=== PATIENT | female | born 1940 | race Caucasian/White ===

== ENCOUNTER 2024-03-09 10:21 | Outpatient (REF) | payer MEDICARE, BC, SELFPAY ==
--- NOTE | ~2024-03-09 | XR_ITS ---
EXAMINATION: XR LUMBAR SPINE 4 OR MORE VIEWS HISTORY: M48.061 - Spinal stenosis, lumbar region without neurogenic claudication COMPARISON: There are no prior studies for comparison. FINDINGS: AP, and neutral, flexion, and extension lateral views of the lumbar spine are submitted. Osseous mineralization is normal. Five nonrib-bearing lumbar vertebral bodies are identified, maintaining normal height without evidence of fracture. There is minimal anterolisthesis of L4 on L5 which does not change with flexion or extension. There is diffuse mild degenerative disc disease with disc space narrowing and osteophyte formation. This is most prominent at L5-S1. There is osteoarthritis of the facet joints. The visualized paraspinal soft tissues are unremarkable. XR/XR lumbar spine 4V min IMPRESSION: Degenerative changes of the lumbar spine as described. Minimal anterolisthesis of L4 on L5 which does not change with flexion or extension. Electronically signed by: Andi Brown MD 03/12/2024 08:52 AM [facility]
== END 2024-03-09 10:22 | disposition home or self-care (01) ==
LOC: HO.HOSX 10:21
PROVIDERS: PCP Internal Medicine; Visit Provider Physician Assistant
DX: M48.062 Spinal stenosis, lumbar region with neurogenic claudication (principal)
CPT/HCPCS: 72110; 99202

== ENCOUNTER → 2024-03-09 11:28 | Outpatient (BNV) | payer MEDICARE, BC, SELFPAY | PROVIDERS: PCP Internal Medicine; Visit Provider Radiology Diagnostic Radiology | DX: M51.369 Other intervertebral disc degeneration, lumbar region without mention of lumbar back pain or lower extremity pain (principal) | CPT/HCPCS: 72110 ==

== ENCOUNTER → 2024-04-12 10:45 | Outpatient (BNV) | payer MEDICARE, BC, SELFPAY | PROVIDERS: PCP Internal Medicine; Visit Provider Internal Medicine Cardiovascular Disease | DX: I45.10 Unspecified right bundle-branch block (principal) | CPT/HCPCS: 93010 ==

== ENCOUNTER 2024-04-26 05:58 | Day surgery (SDC) | payer MEDICARE, BC, SELFPAY ==
--- NOTE | 2024-04-12 | ECG_ITS ---
Test Reason : preop Blood Pressure : */* mmHG Vent. Rate : 93 BPM Atrial Rate : 93 BPM P-R Int : 160 ms QRS Dur : 118 ms QT Int : 410 ms P-R-T Axes : 74 47 55 degrees QTcB Int : 509 ms Normal sinus rhythm Low voltage QRS Right bundle branch block Abnormal ECG No previous ECGs available Referred By: Hui Blanco Electronically Signed By: Joel Youssef
[2024-04-12 10:03] VITALS: BP 167/77; PULSE 86; RESP 20; O2SAT 98; BMI 31.9
[2024-04-26] VITALS (8 sets, daily range): BP systolic 101–125; BP diastolic 46–75; PULSE 85–112; RESP 12–16; TEMP 36.1–36.7; O2SAT 94–100
--- NOTE | ~2024-04-26 | FL_ITS ---
EXAMINATION: FL GUIDANCE ONLY HISTORY: l3-4 decompression COMPARISON: Correlation is made with plain films of the lumbar spine dated 03/09/2024. TECHNIQUE: Fluoroscopy time: 2.3 minutes. Cumulative Dose: 1.40 978 mGy. DAP: 0.4936 mGym2 Images: 1. FINDINGS: A single fluoroscopic spot film of the lumbar spine in the lateral projection demonstrates a probe directed toward the L3-4 intervertebral disc space from a posterior approach. FL/FL guidance in OR IMPRESSION: Fluoroscopy during procedure. Please see procedure report for additional information. Electronically signed by: Andi Brown MD 04/26/2024 08:40 AM EDT
[2024-04-26] MEDS: Gabapentin 300 MG CAPSULE PO (06:30)
[2024-04-26] MEDS: Lactated Ringers 1,000 ML 100 ML IVCONT (06:30)
[2024-04-26] MEDS: methocarbamoL 750 MG TABLET PO (06:30)
--- NOTE | 2024-04-26 07:02 | P.HPSUR_ITS ---
Pre-Procedural Eval Section A - 24 Hr Update-Section A only Date of Service: 04/26/24 The patient is an INPATIENT: No Changes since office visit: No Cold of Flu in the past 2 weeks, No New Medical Problems, No Changes in Medication and No Patient answered all questions The patient has been examined within 24 hours of the surgical procedure. The History & Physical has been completed within 30 days and I have reviewed it.: No Section B - Complete if H&P > 30 days Chief Complaint: Spinal stenosis, lumbar region without neurogenic Allergies: Allergies Allergy/AdvReac Type Severity Reaction Status Date / Time No Known Allergies Allergy Verified 04/26/24 06:27 Review of Systems Sugical H&P ROS: Negative: Constitution, Cardiovascular, Respiratory, Neurological, Psychiatric, Hem-Onc, Allergic/Immunologic, Gastrointestinal, Genitourinary, Musculoskeletal, Integumentary, Endocrine and Eyes/Ears/Nose/Thro at Exam Surgical H&P Exam: Normal: HEENT, Normal: Heart, Normal: Lungs, Normal: Extremities, Normal: Abdomen, Normal: Skin and Normal: Neurological (Awake alert oriented) Plan Diagnosis/Plan: Unchanged L3-4 decompression Time Spent With Patient Time: Total time managing care of this patient today __ 5 __ minutes.
--- NOTE | 2024-04-26 07:03 | P.DS_ITS ---
DS: Providers Provider Date of Service: 04/26/24 Date of discharge: 04/26/24 Primary care physician: Carlin Owens MD Admitting clinician: Cesar Daniels DS: Diagnosis Discharge Diagnosis (1) Lumbar stenosis: Status: Acute DS: Summary Time Attestation Discharge Coordination Time (in mins): 3 Quality: Safe Use of Opioids Does Pt have an Active Cancer Diagnosis on the Problem List?: No Quality: Stroke Does the patient have a stroke diagnosis?: No Physical Exam Vital Signs: Vital Signs: Last Vital Signs Temp 98.1 F 04/26/24 06:32 Pulse 85 04/26/24 06:32 Resp 16 04/26/24 06:32 BP 101/61 04/26/24 06:32 Pulse Ox 95 04/26/24 06:32 O2 Del Method Room Air 04/26/24 06:32 BMI result Body Mass Index 31.9 Discharge Plan Discharge Patient Disposition: Home, Self-Care Referrals: Carlin Owens MD [Primary Care Provider] - 1 Week Discharge Medications: New oxycodone 5 mg tablet 5 mg PO Q4H PRN (Reason: pain) Qty: 20 0RF Rx Instructions: Partial Fill upon patient request. Continued celecoxib 200 mg capsule 200 mg PO QAM citalopram 10 mg tablet 10 mg PO QAM tramadol 50 mg tablet 50 - 100 mg PO BID PRN (Reason: Pain) zolpidem 5 mg tablet 5 mg PO BEDTIME PRN (Reason: Insomnia) ramipril 5 mg capsule 5 mg PO QAM loratadine 10 mg tablet 10 mg PO DAILY PRN (Reason: Allergy Symptoms) rosuvastatin 20 mg tablet 20 mg PO QAM cholecalciferol (vitamin D3) [Vitamin D3] 25 mcg (1,000 unit) Capsule 25 mcg PO QAM acetaminophen 500 mg Tablet 1,000 mg PO QID PRN (Reason: Pain) Discharge Orders: Discharge Order (Routine); Ordered 04/26/24 Ordered By: Peewee Unger Diet: Advance to usual diet Activity on Discharge: As tolerated Activity Restrictions/Additional Instructions: After your spinal surgery we ask you to observe the following restrictions/guidelines: Activity: It is normal to feel some discomfort as you increase your activity, but that will improve with time. We ask you avoid heavy lifting or acitivities that cause pain. As a general rule, 8lbs is a safe limit for lifting right after surgery. Walk as much as you feel comfortable but not to exhaustion. You will feel extra tired the first few days after surgery. Stay well hydrated. It is OK to walk up and down stairs You may return to driving when you are off narcotics (such as vicodin, oxycodone, dilaudid, etc), and you are back to normal functional capacity. If you have any concerns please check with office before driving. Return to work is specific to each patient and each surgery, so please speak with your doctor/PA at first follow up. Please bring paperwork such as FMLA at that time if you need it filled out. Medications: For optimum pain control, it is best to start with a combination of 500 mg of Tylenol every 4 hours with 600 mg of Motrin every 8 hours, and use narcotics as needed in between for breakthrough pain. We will give you a short supply of narcotics after surgery (usually one weeks worth). If you need more please call the office but do not use more than prescribed. You will need to give our office 48 hours notice if you need narcotics refilled and we do not fill narcotics on weekends or evenings. If you are on a narcotic, it is a good idea to take a stool softener such as colace or senna to avoid constipation If you take blood thinner such as aspirin, Plavix, Coumadin, Effient, Eliquis etc for conditions such as Afib, DVT, Pulmonary embolus, coronary disease, stents etc please speak with your surgeon about specific details as to when you can resume these medications. You can resume NSAIDs on post op day 1 (eg: Motrin, Naproxen, etc). Follow up: Please call the office, , after surgery to arrange a 3 week follow up for wound check. Wound Care: You may remove your dressing on the first day after surgery. ?You may ?leave open to air. Please do not remove the steri strips underneath. they will fall off on their own in one week. IT IS NORMAL FOR THE WOUND TO OOZE OR BE BLOODY FOR A FEW DAYS AFTER SURGERY. ?IF THIS HAPPENS JUST PLACE NEW DRESSING OVER IT TO AVOID STAINING CLOTHES. You may shower on post op day # 1 We ask that you do not let the water soak the wound. If it does get wet, just towel dry lightly. Please do not scrub your incision or place any type of chemical/ointment on the wound. No tub baths, pools or jacuzzis for one month. If you have any leaking or redness from your wound, or fevers, please call office Print Language: Tamazight
--- NOTE | 2024-04-26 07:20 | P.CONAN_ITS ---
Documented by User: Hui Blanco NP 04/23/24 14:16 HPI - Anesthesia Eval Consult details Narrative: 84yo F for Bilateral L3-4 Lumbar Decompression (left sided approach), 04/26/24 No recent illness No CP/SOB with minimal activity Splenic artery aneurysm: repair 2009 ? DNR / pt to bring copy of MOLST on DOS PMFSH Active Problems Active Problems: All Active Problems Lumbar stenosis (Acute) Past Medical History Medical History Adrenal mass Osteopenia Arthritis Splenic artery aneurysm Diverticulitis Depression Elevated cholesterol HTN (hypertension) Chronic low back pain Family History Family history of problems with anesthesia: No Surgical History Surgical History Hx of bilateral cataract extraction H/O colonoscopy History of bilateral carpal tunnel release Hx of hysterectomy History of incisional hernia repair History of colon resection History of back surgery History of Problems with Anesthesia: No Social History Social History Household Members Other:: daughter Are you a primary critical care physician to a significant other at home: No Do you presently have visiting nurse or other home services: No Comment: aware of trip hazard Patient Tobacco Use Status: Current everyday Tobacco user Tobacco use type: Cigarette Cigarette Packs Per Day: 1 Cigarettes Per Day: 20.0 Years Smoked: 66 Use of substances other than those prescribed or required for medical reasons: No Have you been hit, kicked, punched, or otherwise hurt by someone within the past year? If so, by whom?: No Spiritual Healthcare Practices: none Amish Healthcare Practices: Restorationism Cultural Healthcare Practices: none Are you DNR?: Yes Advance Directives: No Advance Directives Information Provided: Yes (as above noted) Advance Directives on File: No Recently lost weight without trying: No Eating poorly because of decreased appetite: No Nutrition Risks: Surgical patient >75years FDLMP: n/a Poor oral hygiene: No (some extracted teeth) Meds Allergies Allergy/AdvReac Type Severity Reaction Status Date / Time No Known Allergies Allergy Verified 04/26/24 06:27 Home Medications ?Medication ?Instructions ?Recorded ?Confirmed ?Last Taken ?Type celecoxib 200 mg capsule 200 mg PO QAM 04/11/24 04/26/24 04/24/24 History citalopram 10 mg tablet 10 mg PO QAM 04/11/24 04/26/24 Unknown History loratadine 10 mg tablet 10 mg PO DAILY PRN Allergy Symptoms 04/11/24 04/26/24 Unknown History ramipril 5 mg capsule 5 mg PO QAM blood pressure 04/11/24 04/26/24 Unknown History rosuvastatin 20 mg tablet 20 mg PO QAM 04/11/24 04/26/24 Unknown History tramadol 50 mg tablet 50 - 100 mg PO BID PRN Pain 04/11/24 04/26/24 Unknown History zolpidem 5 mg tablet 5 mg PO BEDTIME PRN Insomnia 04/11/24 04/26/24 Unknown History acetaminophen 500 mg tablet 1,000 mg PO QID PRN Pain 04/12/24 04/26/24 Unknown History cholecalciferol (vitamin D3) 25 25 mcg PO QAM 04/12/24 04/26/24 Unknown History mcg (1,000 unit) capsule (Vitamin D3) Exam Height,Weight and Vital Signs: Height 5 ft 1 in Weight 76.657 kg Last Vital Signs Pulse 86 04/12/24 10:03 Resp 20 04/12/24 10:03 BP 167/77 H 04/12/24 10:03 Pulse Ox 98 04/12/24 10:03 O2 Del Method Room Air 04/12/24 10:03 Pertinent Lab Results Pertinent Lab Results: CBC 02/2024 and BMP 12/2023 from outside facility [place] Narrative Narrative: EKG 03/2024 Vent. Rate : 93 BPM Atrial Rate : 93 BPM P-R Int : 160 ms QRS Dur : 118 ms QT Int : 410 ms P-R-T Axes : 74 47 55 degrees QTcB Int : 509 ms Normal sinus rhythm Low voltage QRS Right bundle branch block Abnormal ECG No previous ECGs available Airway Mallampati Class: IV TM Dist: <=3cm Neck ROM: Limited Loose/Missing/Broken Teeth: Yes (Broken Left upper) Heart: RRR Lungs: CTAB Assessment and Plan Assessment Anesthesia Assessment: Anesthesia Plan Discussed and PAT Visit Final Anesthetic Review Family History of Problems with Anesthesia: No History of Problems with Anesthesia: No Documented by User: Katelyn Valle, DO 04/26/24 07:32 PMFSH Past Medical History Medical History Adrenal mass Osteopenia Arthritis Splenic artery aneurysm Diverticulitis Depression Elevated cholesterol HTN (hypertension) Chronic low back pain Family History Family history of problems with anesthesia: No Surgical History Surgical History Hx of bilateral cataract extraction H/O colonoscopy History of bilateral carpal tunnel release Hx of hysterectomy History of incisional hernia repair History of colon resection History of back surgery History of Problems with Anesthesia: No Social History Social History Household Members Other:: daughter Are you a primary critical care physician to a significant other at home: No Do you presently have visiting nurse or other home services: No Comment: aware of trip hazard Patient Tobacco Use Status: Current everyday Tobacco user Tobacco use type: Cigarette Cigarette Packs Per Day: 1 Cigarettes Per Day: 20.0 Years Smoked: 66 Use of substances other than those prescribed or required for medical reasons: No Have you been hit, kicked, punched, or otherwise hurt by someone within the past year? If so, by whom?: No Spiritual Healthcare Practices: none Amish Healthcare Practices: Restorationism Cultural Healthcare Practices: none Are you DNR?: Yes Advance Directives: No Advance Directives Information Provided: Yes (as above noted) Advance Directives on File: No Recently lost weight without trying: No Eating poorly because of decreased appetite: No Nutrition Risks: Surgical patient >75years FDLMP: n/a Poor oral hygiene: No (some extracted teeth) Meds Allergies Allergy/AdvReac Type Severity Reaction Status Date / Time No Known Allergies Allergy Verified 04/26/24 06:27 Home Medications ?Medication ?Instructions ?Recorded ?Confirmed ?Last Taken ?Type celecoxib 200 mg capsule 200 mg PO QAM 04/11/24 04/26/24 04/24/24 History citalopram 10 mg tablet 10 mg PO QAM 04/11/24 04/26/24 Unknown History loratadine 10 mg tablet 10 mg PO DAILY PRN Allergy Symptoms 04/11/24 04/26/24 Unknown History ramipril 5 mg capsule 5 mg PO QAM blood pressure 04/11/24 04/26/24 Unknown History rosuvastatin 20 mg tablet 20 mg PO QAM 04/11/24 04/26/24 Unknown History tramadol 50 mg tablet 50 - 100 mg PO BID PRN Pain 04/11/24 04/26/24 Unknown History zolpidem 5 mg tablet 5 mg PO BEDTIME PRN Insomnia 04/11/24 04/26/24 Unknown History acetaminophen 500 mg tablet 1,000 mg PO QID PRN Pain 04/12/24 04/26/24 Unknown History cholecalciferol (vitamin D3) 25 25 mcg PO QAM 04/12/24 04/26/24 Unknown History mcg (1,000 unit) capsule (Vitamin D3) Exam Exam Date and Time: 04/26/24 0720 Height,Weight and Vital Signs: Height 5 ft 1 in Weight 76.657 kg Last Vital Signs Pulse 86 04/12/24 10:03 Resp 20 04/12/24 10:03 BP 167/77 H 04/12/24 10:03 Pulse Ox 98 04/12/24 10:03 O2 Del Method Room Air 04/12/24 10:03 Vital Signs Pulse Rate 86 04/12/24 10:03 Respiratory Rate 20 04/12/24 10:03 Blood Pressure 167/77 H 04/12/24 10:03 Pulse Oximetry 98 04/12/24 10:03 Oxygen Delivery Method Room Air 04/12/24 10:03 Temperature 98.1 F 04/26/24 06:32 Pulse Rate 85 04/26/24 06:32 Respiratory Rate 16 04/26/24 06:32 Blood Pressure 101/61 04/26/24 06:32 Pulse Oximetry 95 04/26/24 06:32 Oxygen Delivery Method Room Air 04/26/24 06:32 Airway Mallampati Class: IV TM Dist: <=3cm Neck ROM: Limited Loose/Missing/Broken Teeth: Yes (Broken Left upper) Heart: S1S2 Assessment and Plan Assessment Anesthesia Assessment: Anesthesia Plan Discussed and Chart Reviewed Final Anesthetic Review Family History of Problems with Anesthesia: No History of Problems with Anesthesia: No NPO: Yes ASA Class: II Final Preanesthetic Review: No Changes in Pt Med Stat, Meds/Allgs Chart Reviewed, Consent Obtained/Reviewed and Anes Risks/Benef Reviewed Patient Risk: Low Procedure Risk: Low Anesthetic Plan Anesthetic Plan: GA and Agree w/ Assess. and Plan Disposition: Standard PACU
[2024-04-26] MEDS: ceFAZolin Sodium/Dextrose,Iso 2 GM/50 ML PIGGYBACK IV (07:41)
--- NOTE | 2024-04-26 08:47 | P.OP_ITS ---
Operative Note Operative Note Date of Service: 04/26/24
--- NOTE | 2024-04-26 08:49 | P.OP_ITS ---
Operative Note Operative Note Date of Service: 04/26/24 Narrative: Preoperative Diagnosis: L3-4 spinal stenosis/lateral recess stenosis/neural foraminal stenosis Operation: L3-4 Laminotomy, Partial facetectomy and foraminotomy with use of microscope Consent Informed Consent was obtained for this operation. I have explained the nature, purpose and benefits of the operation. I have discussed the risks and benefit of the operation including possible complications or adverse events with patient/family. Alternative(s) were discussed with the patient with their relative benefits and risks as well as the consequences of not accepting the operation were included in obtaining consent. Surgeon: SARBJIT FAITH MD, PHD Procedure Assisted By: Peewee Garrett Description of Procedure This patient is suffering from neurogenic claudication, right more than left. The MRI shows severe L3-4 spinal stenosis with more hypertrophic ligament on the right side. Therefore we decided to do a right-sided approach for bilateral decompression. The patient was offered a decompression. The procedure complications were explained. The patient was consented. The patient was brought to the operating room and endotracheally intubated. The patient was turned in prone position on the Yoel frame. Prep and drape was done followed by timeout. The Physician hair or beauty salon assistant provided access. A mid lumbar incision was made followed by release of the paravertebral muscle on the right side to expose the L3-4 lamina and facet joints. An intraoperative x-ray was obtained to confirm the correct level. The microscope was brought in. I took over the procedure. The high-speed drill was used to do a L3-4 laminotomy until flavum ligament was reached. A #2 Kerrison was used to expand the laminotomy near flush to the pedicles and to include a partial facetectomy. The flavum ligament was opened a nd resected with a #3 Kerrison to decompress the underlying thecal sac. The flavum ligament was removed to decompress the lateral recess and the exiting L4 nerve root. The patient was turned contralaterally. The spinous process was undercut and and this may was able to reach contralaterally into decompress the lateral recess and exiting nerve root removing more flavum ligament. A long nerve hook could be easily passed along the medial side of the pedicles as a sign of adequate decompression. The microscope was removed. Hemostasis was done. The physician hair or beauty salon assistant close the Incision in 2 layers. Steri-Strips were used to approximate incision. An OpSite with Tegaderm was used to cover the incision. All sponge needle counts were correct. Patient was extubated and transported in stable is to recovery room. Anesthesia: General Estimated Blood Loss (ml): 30 Complications: None Duration of Surgery: Under 60 Minutes Postoperative Plan: Discharge to home
[2024-04-26] MEDS: oxyCODONE HCl Immed Release 5 MG TABLET PO (10:04)
== END 2024-04-26 10:46 | disposition home or self-care (01) ==
PROVIDERS: PCP Internal Medicine; Visit Provider Neurological Surgery
PROC: (CPT 63047; principal; 2024-04-26 07:30)
DX: M48.062 Spinal stenosis, lumbar region with neurogenic claudication (principal); G89.29 Other chronic pain; M54.50 Low back pain, unspecified; R20.0 Anesthesia of skin; M79.605 Pain in left leg; M79.604 Pain in right leg; I10 Essential (primary) hypertension; E78.00 Pure hypercholesterolemia, unspecified; F32.A Depression, unspecified; Z79.899 Other long term (current) drug therapy; Z87.19 Personal history of other diseases of the digestive system; Z90.49 Acquired absence of other specified parts of digestive tract; Z98.890 Other specified postprocedural states; F17.210 Nicotine dependence, cigarettes, uncomplicated
CPT/HCPCS: 63047; 93005; J0131; J0690; J1885; J2003; J2250; J2704; J3010

== ENCOUNTER → 2024-04-26 05:58 | Outpatient (BNV) | payer MEDICARE, BC, SELFPAY | PROVIDERS: PCP Internal Medicine; Visit Provider Neurological Surgery | DX: M48.061 Spinal stenosis, lumbar region without neurogenic claudication (principal) | CPT/HCPCS: 63047; 99499 ==

== ENCOUNTER 2024-05-01 13:35 | Outpatient (REF) | payer MEDICARE, BC, SELFPAY ==
--- NOTE | ~2024-05-01 | US_ITS ---
EXAMINATION: US TRIPLEX LOWER EXTREMITY, LEFT CLINICAL INFORMATION: Lower extremity pain, left leg. COMPARISON: None available. TECHNIQUE: Color-flow triplex imaging with spectral analysis and compression Doppler were performed on the left lower extremity. FINDINGS: Respiratory variation, normal compression and augmented flow are noted throughout the visualized common femoral vein, superficial femoral vein, profunda femoral vein, popliteal vein and midcalf peroneal and posterior tibial venous segments . There is no Mcelroy's cyst. US/US venous duplex LE IMPRESSION: No acute deep venous thrombosis involving the left lower extremity. Negative for DVT. Electronically signed by: Leonardo Payan MD 05/01/2024 03:10 PM EDT
--- OUTSIDE RECORDS SUMMARY | 2024-05-01 16:02 | XMS_ITS | Data Portability ---
Author Organization [facility], Main Office Address [address] [facility] [address] [place] [id number] Care Team Providers Care Sheep And Wheat Farmer Name Role Phone CANDACE OWENS Primary Care Provider KENNEDY MONTALVO Mottle Lay Up Operator MICHAEL HARTLEY Pre Certification Specialist NAHUM SOSA Rotor Blade Installer [facility] ine TRINY GIVENS Referring Provider BRIDGETTE ARAUJO Orthopedic Surgeon Assessment Encounter Date Assessment Date Assessment LastModified by Organization Details LastModified Time 03/17/2023 03/17/2023 Discussed with patient the signs/symptom s warranted for a return to office visit and/or an ER visit. Patient understood and agreed with the plan. [email or web address] Not available 03/20/2023 17:27:17 Plan of Treatment Reminders Order Date Submit Date Provider Last Modified By Organization Details Last Modified Time Details Appointments None recorded . Lab CMP, serum or plasma 2023 [facility] (Centralized Electronic Ordering - All Locations), Patient Can Go To The Location Of Their Choice, [id number] 14:06:45 lipid panel, serum 2023 [facility] (Centralized Electronic Ordering - All Locations), Patient Can Go To The Location Of Their Choice, [id number] 4 14:06:47 lead, quant, venous blood 2023 [facility] (Centralized Electronic Ordering - All Locations), Patient Can Go To The Location Of Their Choice, 14:06:47 CBC w/ auto diff 2023 [facility] (Centralized Electronic Ordering - All Locations), Patient Can Go To The Location Of Their Choice, 15:57:26 TSH, serum or plasma 2023 [facility] (Centralized Electronic Ordering - All Locations), Patient Can Go To The Location Of Their Choice, 02:14:49 celiac disease comprehe nsive panel, serum 2023 [facility] (Centralized Electronic Ordering - All Locations), Patient Can Go To The Location Of Their Choice, 21:06:41 unlisted lab - calprote ctin,fec al 2023 [facility] (Centralized Electronic Ordering - All Locations), Patient Can Go To The Location Of Their Choice, 00:06:14 C-reacti ve protein, quantita tive, serum or plasma 2023 [facility] (Centralized Electronic Ordering - All Locations), Patient Can Go To The Location Of Their Choice, 02:30:39 C diff toxin A+B, qualitat braeden, stool 2023 [facility], [address], [address], [place], [id number], 4 09:38:52 unlisted lab - giardia lamblia, direct detectio n, EIA 2023 024 [facility], [address], [address], [place], [id number], 4 14:07:15 unlisted lab - routine culture, stool 2023 024 [facility], [address], [address], [place], [id number], 4 14:09:21 lipid panel, serum 2022 023 [place] [facility] (Centralized Electronic Ordering - All Locations), Patient Can Go To The Location Of Their Choice, [id number] 3 23:16:25 CMP, serum or plasma 2022 023 [facility] (Centralized Electronic Ordering - All Locations), Patient Can Go To The Location Of Their Choice, [id number] 3 23:16:23 CBC w/ auto diff 2022 023 [facility] (Centralized Electronic Ordering - All Locations), Patient Can Go To The Location Of Their Choice, [id number] 20:10:27 Referral None recorded . Procedures None recorded . Surgeries None recorded . Imaging CT, abdomen, w/o contrast - Right adrenal mass. Please evaluate for stabilit y. 2022 023 [facility], [address], [address], [place], [address], 09:41:48 Medication Orders codeine 10 mg-guaif enesin 100 mg/5 mL oral liquid 2023 024 [facility][id number], [address] [place] [address], [id number], 4 16:52:25 acetamin ophen 300 mg-codei ne 30 mg tablet 2023 024 [facility], [address] [place] [address], [id number], 4 16:41:03 zolpidem 5 mg tablet 2023 024 [facility], [address] [place] [address], [id number], 4 16:41:03 losartan 50 mg-hydro chloroth iazide 12.5 mg tablet 2022 023 [email or web address], [address] [place], [id number], 4 11:56:54 pantopra zole 20 mg tablet,d elayed release 2022 023 [id number], [address] [place], [address], 15:02:34 Patient TargetsNo targets recorded. Patient Instructions Encounter Date Encounter Id Patient Instructions Last Modified By Organization Details Last Modified Time 12/29/2022 [id number] lumbar spinal stenosis: care instructions [email or web address] Not available 12/30/2022 08:43:16 Preventing Depression From Coming Back: Care Instructions [email or web address] Not available 12/30/2022 08:49:25 high blood pressure: care instructions [facility] Not available 12/29/2022 13:55:00 learning about h igh blood pressure [facility] Not available 12/29/2022 13:55:00 high cholesterol : care instructions [facility] Not available 12/29/2022 13:55:09 preventing falls : care instructions [facility] Not available 12/29/2022 13:55:00 medicare prevent braeden services guide( female>75yrs) [facility] Not available 12/29/2022 13:55:00 02/09/2023 [id number] lumbar spinal stenosis: care instructions [facility] Not available 02/09/2023 15:33:09 back care and preventing injuries: care instructions [facility] Not available 02/09/2023 15:33:09 getting back to normal after low back pain: care instructions [facility] Not available 02/09/2023 15:33:09 learning about relief for back pain [facility] Not available 02/09/2023 15:33:09 high blood pressure: care instructions [facility] Not available 02/09/2023 15:22:50 learning about h igh blood pressure [facility] Not available 02/09/2023 15:22:50 07/06/2023 [id number] lumbar spinal stenosis: care instructions [facility] Not available 07/06/2023 16:40:59 insomnia: care instructions [facility] Not available 07/06/2023 16:40:58 gastroesophageal reflux disease (GERD): care instructions [facility] Not available 07/06/2023 13:04:55 high blood pressure: care instructions [facility] Not available 07/06/2023 13:04:55 learning about h igh blood pressure [facility] Not available 07/06/2023 13:04:55 high cholesterol : care instructions [facility] Not available 07/06/2023 13:04:55 01/03/2024 [id number] deciding about using medicines to quit smoking [facility] Not available 01/03/2024 13:40:23 Quitting Tobacco : Care Instructions [facility] Not available 01/03/2024 13:40:23 insomnia: care instructions [facility] Not available 01/03/2024 13:40:23 back care and preventing injuries: care instructions [facility] Not available 01/03/2024 13:40:23 getting back to normal after low back pain: care instructions [facility] Not available 01/03/2024 13:40:23 learning about relief for back pain [facility] Not available 01/03/2024 13:40:23 cough: care instructions [facility] Not available 01/03/2024 16:52:22 preventing falls : care instructions [facility] Not available 01/03/2024 13:31:30 well visit, over 65: care instructions [facility] Not available 01/03/2024 13:31:30 high cholesterol : care instructions [facility] Not available 01/03/2024 13:40:23 lumbar spinal stenosis: care instructions [facility] Not available 01/03/2024 13:40:22 Reason for Referral None Reported. Results Created Date Observation Date Name Description Value Unit Range Abnormal Flag Note LastModifiedBy Organization Detail LastModifiedTime 12/30/1912/29/2022 COMPL ETE BLOOD COUNT WBC 9.0 K/mm3 (4.0-1 1.0) Not Available [facility] (Centralized Electronic Ordering - All Locations) Patient Can Go To The Location Of Their Choice, 12/29/2022 20:10:27 12/30/1912/29/2022 COMPL ETE BLOOD COUNT RBC 4.63 M/mm3 (4.20- 5.40) Not Available [facility] (Centralized Electronic Ordering - All Locations) Patient Can Go To The Location Of Their Choice, 12/29/2022 20:10:27 12/30/1912/29/2022 COMPL ETE BLOOD COUNT HGB 13.8 gm/dL (11.7- 15.5) Not Available [facility] (Centralized Electronic Ordering - All Locations) Patient Can Go To The Location Of Their Choice, 12/29/2022 20:10:27 12/30/1912/29/2022 COMPL ETE BLOOD COUNT HCT 44.2 % (35.7- 45.8) Not Available [facility] (Centralized Electronic Ordering - All Locations) Patient Can Go To The Location Of Their Choice, 12/29/2022 20:10:27 12/30/1912/29/2022 COMPL ETE BLOOD COUNT MCV 95.5 fL (80.0- 100.0) Not Available [facility] (Centralized Electronic Ordering - All Locations) Patient Can Go To The Location Of Their Choice, 12/29/2022 20:10:27 12/30/1912/29/2022 COMPL ETE BLOOD COUNT MCH 29.8 pg (27.0- 34.0) Not Available [facility] (Centralized Electronic Ordering - All Locations) Patient Can Go To The Location Of Their Choice, 12/29/2022 20:10:27 12/30/1912/29/2022 COMPL ETE BLOOD COUNT MCHC 31.2 g/dL (33.0- 37.0) low Not Available [facility] (Centralized Electronic Ordering - All Locations) Patient Can Go To The Location Of Their Choice, 12/29/2022 20:10:27 12/30/1912/29/2022 COMPL ETE BLOOD COUNT plt 226 K/mm3 (150-4 60) Not Available [facility] (Centralized Electronic Ordering - All Locations) Patient Can Go To The Location Of Their Choice, 12/29/2022 20:10:27 12/30/1912/29/2022 COMPL ETE BLOOD COUNT RDW-SD 48.2 fL (<47.0 ) high Not Available [facility] (Centralized Electronic Ordering - All Locations) Patient Can Go To The Location Of Their Choice, 12/29/2022 20:10:27 12/30/1912/29/2022 COMPL ETE BLOOD COUNT MPV 11.8 fL (9.4-1 2.4) Not Available [facility] (Centralized Electronic Ordering - All Locations) Patient Can Go To The Location Of Their Choice, 12/29/2022 20:10:27 12/30/1912/29/2022 COMPL ETE BLOOD COUNT automated NRBC 0.0 #/100 _WBC' s Not Available [facility] (Centralized Electronic Ordering - All Locations) Patient Can Go To The Location Of Their Choice, 12/29/2022 20:10:27 12/30/1912/29/2022 COMPL ETE BLOOD COUNT abs. NRBC 0.0 K/mm3 Not Available [facility] (Centralized Electronic Ordering - All Locations) Patient Can Go To The Location Of Their Choice, 12/29/2022 20:10:27 12/30/1912/29/2022 COMPR EHENS BRAEDEN METAB OLIC PANL glucose 94 mg/dL (70-99 ) Not Available [facility] (Centralized Electronic Ordering - All Locations) Patient Can Go To The Location Of Their Choice, 12/29/2022 23:16:22 12/30/19 23 12/29/2022 COMPR EHENS BRAEDEN METAB OLIC PANL BUN 14 mg/dL (8-23) Not Available [facility] (Centralized Electronic Ordering - All Locations) Patient Can Go To The Location Of Their Choice, 12/29/2022 23:16:22 12/30/1912/29/2022 COMPR EHENS BRAEDEN METAB OLIC PANL creatinine 0.8 mg/dL (0.5-1 .0) Not Available [facility] (Centralized Electronic Ordering - All Locations) Patient Can Go To The Location Of Their Choice, 12/29/2022 23:16:22 12/30/19 23 12/29/2022 COMPR EHENS BRAEDEN METAB OLIC PANL sodium 139 mmol/ L (133-1 45) Not Available [facility] (Centralized Electronic Ordering - All Locations) Patient Can Go To The Location Of Their Choice, 12/29/2022 23:16:22 12/30/1912/29/2022 COMPR EHENS BRAEDEN METAB OLIC PANL potassium 4.6 mmol/ L (3.6-5 .2) Not Available [facility] (Centralized Electronic Ordering - All Locations) Patient Can Go To The Location Of Their Choice, 12/29/2022 23:16:22 12/30/1912/29/2022 COMPR EHENS BRAEDEN METAB OLIC PANL chloride 104 mmol/ L (98-10 7) Not Available [facility] (Centralized Electronic Ordering - All Locations) Patient Can Go To The Location Of Their Choice, 12/29/2022 23:16:22 12/30/1912/29/2022 COMPR EHENS BRAEDEN METAB OLIC PANL bicarbonate 26 mmol/ L (22-29 ) Not Available [facility] (Centralized Electronic Ordering - All Locations) Patient Can Go To The Location Of Their Choice, 12/29/2022 23:16:22 12/30/1912/29/2022 COMPR EHENS BRAEDEN METAB OLIC PANL anion gap 9 (4-17) Not Available [facility] (Centralized Electronic Ordering - All Locations) Patient Can Go To The Location Of Their Choice, 12/29/2022 23:16:22 12/30/1912/29/2022 COMPR EHENS BRAEDEN METAB OLIC PANL albumin 4.4 gm/dL (3.4-4 .8) Not Available [facility] (Centralized Electronic Ordering - All Locations) Patient Can Go To The Location Of Their Choice, 12/29/2022 23:16:22 12/30/1912/29/2022 COMPR EHENS BRAEDEN METAB OLIC PANL calcium 9.3 mg/dL (8.6-1 0.5) Not Available [facility] (Centralized Electronic Ordering - All Locations) Patient Can Go To The Location Of Their Choice, 12/29/2022 23:16:22 12/30/1912/29/2022 COMPR EHENS BRAEDEN METAB OLIC PANL bilirubin,to sallie 0.3 mg/dL (0-1.2 ) Not Available [facility] (Centralized Electronic Ordering - All Locations) Patient Can Go To The Location Of Their Choice, 12/29/2022 23:16:22 12/30/1912/29/2022 COMPR EHENS BRAEDEN METAB OLIC PANL total protein 6.9 gm/dL (6.2-8 .2) Not Available [facility] (Centralized Electronic Ordering - All Locations) Patient Can Go To The Location Of Their Choice, 12/29/2022 23:16:22 12/30/1912/29/2022 COMPR EHENS BRAEDEN METAB OLIC PANL Ag ratio 1.8 Not Available [facility] (Centralized Electronic Ordering - All Locations) Patient Can Go To The Location Of Their Choice, 12/29/2022 23:16:22 12/30/19 23 12/29/2022 COMPR EHENS BRAEDEN METAB OLIC PANL AST 14 U/L (0-32) Not Available [facility] (Centralized Electronic Ordering - All Locations) Patient Can Go To The Location Of Their Choice, 12/29/2022 23:16:22 12/30/1912/29/2022 COMPR EHENS BRAEDEN METAB OLIC PANL alk phos 87 U/L (35-10 4) Not Available [facility] (Centralized Electronic Ordering - All Locations) Patient Can Go To The Location Of Their Choice, 12/29/2022 23:16:22 12/30/1912/29/2022 COMPR EHENS BRAEDEN METAB OLIC PANL ALT 15 U/L (0-33) Not Available [facility] (Centralized Electronic Ordering - All Locations) Patient Can Go To The Location Of Their Choice, 12/29/2022 23:16:22 12/30/1912/29/2022 COMPR EHENS BRAEDEN METAB OLIC PANL estimated GFR creatinine 74 mL/mi n/1.7 3_M2 Creat inine based estim ated glome rular filtr ation (eGFR ) in adult s is calcu lated using the Natio nal Kidne y Found ation recom sixto d 2020 CKD-E PI equat ion. Estim ates GFR from serum creat inine , age and sex. Not Available [facility] (Centralized Electronic Ordering - All Locations) Patient Can Go To The Location Of Their Choice, 12/29/2022 23:16:22 12/30/19 23 12/29/2022 LIPID PANEL cholesterol, total 182 mg/dL (<200) Not Available [facility] ([facility] Order[facility] - All Locations) Patient Can Go To The Location Of Their Choice, 12/29/2022 23:16:24 12/30/19 23 12/29/2022 LIPID PANEL triglyceride 176 mg/dL (<150) high Not Available [facility] ([facility] Order[facility] - All Locations) Patient Can Go To The Location Of Their Choice, 12/29/2022 23:16:24 12/30/19 23 12/29/2022 LIPID PANEL HDL chol 54 mg/dL (>39) Not Available [facility] (Centralized Electronic Ordering - All Locations) Patient Can Go To The Location Of Their Choice, 12/29/2022 23:16:24 12/30/19 23 12/29/2022 LIPID PANEL LDL cholesterol, calculated 93 mg/dL (0-130 ) Not Available [facility] (Centralized Electronic Ordering - All Locations) Patient Can Go To The Location Of Their Choice, 12/29/2022 23:16:24 12/30/1912/29/2022 LIPID PANEL non HDL cholesterol (calc) 128 mg/dL (<160) Not Available [facility] ([facility] Order[facility] - All Locations) Patient Can Go To The Location Of Their Choice, 12/29/2022 23:16:24 03/17/19 24 03/17/2023 COMPL ETE CBC WITH DIFF WBC 7.3 K/mm3 (4.0-1 1.0) Not Available [facility] (Centralized Electronic Ordering - All Locations) Patient Can Go To The Location Of Their Choice, 03/17/2023 15:57:26 03/17/19 24 03/17/2023 COMPL ETE CBC WITH DIFF RBC 4.64 M/mm3 (4.20- 5.40) Not Available [facility] (Centralized Electronic Ordering - All Locations) Patient Can Go To The Location Of Their Choice, 03/17/2023 15:57:26 03/17/19 24 03/17/2023 COMPL ETE CBC WITH DIFF HGB 13.7 gm/dL (11.7- 15.5) Not Available [facility] (Centralized Electronic Ordering - All Locations) Patient Can Go To The Location Of Their Choice, 03/17/2023 15:57:26 03/17/1903/17/2023 COMPL ETE CBC WITH DIFF HCT 42.9 % (35.7- 45.8) Not Available [facility] (Centralized Electronic Ordering - All Locations) Patient Can Go To The Location Of Their Choice, 03/17/2023 15:57:26 03/17/1903/17/2023 COMPL ETE CBC WITH DIFF MCV 92.5 fL (80.0- 100.0) Not Available [facility] (Centralized Electronic Ordering - All Locations) Patient Can Go To The Location Of Their Choice, 03/17/2023 15:57:26 03/17/1903/17/2023 COMPL ETE CBC WITH DIFF MCH 29.5 pg (27.0- 34.0) Not Available [facility] (Centralized Electronic Ordering - All Locations) Patient Can Go To The Location Of Their Choice, 03/17/2023 15:57:26 03/17/1903/17/2023 COMPL ETE CBC WITH DIFF MCHC 31.9 g/dL (33.0- 37.0) low Not Available [facility] (Centralized Electronic Ordering - All Locations) Patient Can Go To The Location Of Their Choice, 03/17/2023 15:57:26 03/17/1903/17/2023 COMPL ETE CBC WITH DIFF plt 213 K/mm3 (150-4 60) Not Available [facility] (Centralized Electronic Ordering - All Locations) Patient Can Go To The Location Of Their Choice, 03/17/2023 15:57:26 03/17/1903/17/2023 COMPL ETE CBC WITH DIFF RDW-SD 45.9 fL (<47.0 ) Not Available [facility] (Centralized Electronic Ordering - All Locations) Patient Can Go To The Location Of Their Choice, 03/17/2023 15:57:26 03/17/1903/17/2023 COMPL ETE CBC WITH DIFF MPV 11.8 fL (9.4-1 2.4) Not Available [facility] ([facility]ized Electronic Ordering - All Locations) Patient Can Go To The Location Of Their Choice, 03/17/2023 15:57:26 03/17/1903/17/2023 COMPL ETE CBC WITH DIFF automated NRBC 0.0 #/100 _WBC' s Not Available [facility] ([facility] Ordering - All Locations) Patient Can Go To The Location Of Their Choice, 03/17/2023 15:57:26 03/17/19 24 03/17/2023 COMPL ETE CBC WITH DIFF abs. NRBC 0.0 K/mm3 Not Available [facility] ([facility]ized Electronic Ordering - All Locations) Patient Can Go To The Location Of Their Choice, 03/17/2023 15:57:26 03/17/1903/17/2023 COMPL ETE CBC WITH DIFF neut # 4.4 K/mm3 (1.3-7 .0) Not Available [facility] (Centralized Electronic Ordering - All Locations) Patient Can Go To The Location Of Their Choice, 03/17/2023 15:57:26 03/17/1903/17/2023 COMPL ETE CBC WITH DIFF lymph # 2.2 K/mm3 (0.8-3 .1) Not Available [facility] (Centralized Electronic Ordering - All Locations) Patient Can Go To The Location Of Their Choice, 03/17/2023 15:57:26 03/17/19 24 03/17/2023 COMPL ETE CBC WITH DIFF mono# 0.5 K/mm3 (0.4-0 .9) Not Available [facility] ([facility]ized [facility] Ordering - All Locations) Patient Can Go To The Location Of Their Choice, 03/17/2023 15:57:26 03/17/19 24 03/17/2023 COMPL ETE CBC WITH DIFF eo # 0.1 K/mm3 (0.0-0 .4) Not Available [facility] ([facility]ized Electronic Ordering - All Locations) Patient Can Go To The Location Of Their Choice, 03/17/2023 15:57:26 03/17/1903/17/2023 COMPL ETE CBC WITH DIFF baso # 0.0 K/mm3 (0.0-0 .1) Not Available [facility] ([facility]ized [facility] Ordering - All Locations) Patient Can Go To The Location Of Their Choice, 03/17/2023 15:57:26 03/17/19 24 03/17/2023 COMPL ETE CBC WITH DIFF abs. imm gran 0.0 K/mm3 Not Available [facility] ([facility] Order[facility] - All Locations) Patient Can Go To The Location Of Their Choice, 03/17/2023 15:57:26 03/17/19 24 03/17/2023 COMPL ETE CBC WITH DIFF neut 60.0 % (44-76 ) Not Available [facility] ([facility]ized [facility] Ordering - All Locations) Patient Can Go To The Location Of Their Choice, 03/17/2023 15:57:26 03/17/19 24 03/17/2023 COMPL ETE CBC WITH DIFF lymph 30.2 % (15-43 ) Not Available [facility] (Centralized Electronic Ordering - All Locations) Patient Can Go To The Location Of Their Choice, 03/17/2023 15:57:26 03/17/19 24 03/17/2023 COMPL ETE CBC WITH DIFF monocyte 7.4 % (4.5-1 0.5) Not Available [facility] ([facility]ized Electronic Ordering - All Locations) Patient Can Go To The Location Of Their Choice, 03/17/2023 15:57:26 03/17/1903/17/2023 COMPL ETE CBC WITH DIFF eo 1.8 % (0-6) Not Available [facility] ([facility]ized Electronic Ordering - All Locations) Patient Can Go To The Location Of Their Choice, 03/17/2023 15:57:26 03/17/1903/17/2023 COMPL ETE CBC WITH DIFF baso 0.5 % (0-2) Not Available [facility] ([facility]ized Electronic Ordering - All Locations) Patient Can Go To The Location Of Their Choice, 03/17/2023 15:57:26 03/17/1903/17/2023 COMPL ETE CBC WITH DIFF imm gran 0.1 % Not Available [facility] ([facility]ized [facility] Ordering - All Locations) Patient Can Go To The Location Of Their Choice, 03/17/2023 15:57:26 03/17/19 24 03/18/2023 TSH WITH REFLE X TO FT4 TSH 3.03 uIU/m L (0.4-4 .2) Not Available [facility] ([facility]ized Electronic Ordering - All Locations) Patient Can Go To The Location Of Their Choice, 03/18/2023 02:14:49 03/17/1903/18/2023 C-MARU CTIVE PROTE IN C-reactive protein <0.3 mg/dL (0-0.5 ) Not Available [facility] ([facility]ized Electronic Ordering - All Locations) Patient Can Go To The Location Of Their Choice, 03/18/2023 02:30:39 03/17/1903/18/2023 TAI C DISEA SE COMPR EHENS BRAEDEN tissue transglutami nase IgA <2 Refer ence range : 0 to 3 Unit: U/mL (NOTE ) Negat braeden 0 - 3 Weak Posit braeden 4 - 10 Posit braeden >10 Tissu e Trans gluta carl e (tTG) has been ident ified as the endom ysial antig en. Studi es have demon str- ated that endom ysial IgA antib odies have over 99% speci ficit y for glute n sensi tive enter opath y. Not Available [facility] (Centralized Electronic Ordering - All Locations) Patient Can Go To The Location Of Their Choice, 03/18/2023 21:06:41 03/17/1903/18/2023 TAI C DISEA SE COMPR EHENS BRAEDEN endomysial IgA antibody NEGATI VE Refer ence range : NEGAT BRAEDEN Not Available [facility] (Centralized Electronic Ordering - All Locations) Patient Can Go To The Location Of Their Choice, 03/18/2023 21:06:41 03/17/1903/18/2023 TAI C DISEA SE COMPR EHENS BRAEDEN tissue tranglutamin ase IgG <2 Refer ence range : 0 to 5 Unit: U/mL (NOTE ) Negat braeden 0 - 5 Weak Posit braeden 6 - 9 Posit braeden >9 Not Available [facility] (Centralized Electronic Ordering - All Locations) Patient Can Go To The Location Of Their Choice, 03/18/2023 21:06:41 03/17/19 24 03/18/2023 TAI C DISEA SE COMPR EHENS BRAEDEN deamidated gliadin abs, IgA 4 Refer ence range : 0 to 19 Unit: units (NOTE ) Negat braeden 0 - 19 Weak Posit braeden 20 - 30 Moder ate to Stron g Posit braeden >30 Not Available [facility] (Centralized Electronic Ordering - All Locations) Patient Can Go To The Location Of Their Choice, 03/18/2023 21:06:41 03/17/19 24 03/18/2023 TAI C DISEA SE COMPR EHENS BRAEDEN deamidated gliadin abs, IgG 2 Refer ence range : 0 to 19 Unit: units (NOTE ) Negat braeden 0 - 19 Weak Posit braeden 20 - 30 Moder ate to Stron g Posit braeden >30 Not Available [facility] (Centralized Electronic Ordering - All Locations) Patient Can Go To The Location Of Their Choice, 03/18/2023 21:06:41 03/17/1903/18/2023 TAI C DISEA SE COMPR EHENS BRAEDEN total IgA 208 Refer ence range : 64 to 422 Unit: mg/dL Test perfo rmed by [facility], [address], [place] [address] Not Available [facility] (Centralized Electronic Ordering - All Locations) Patient Can Go To The Location Of Their Choice, 03/18/2023 21:06:41 03/18/1903/19/2023 C. DIFFI CILE TOXIN C. difficile toxin (ngcdf 7) normal Negat braeden. C.Dif ficil e bacte rial antig en and toxin not detec cristiano. A negat braeden test resul t does not rule out the possi bilit y of C.Dif ficil e assoc iated disea se. If clini jean pierre suspi cion is high, consi maura resub ridge on after 7 days. Not Available [facility] (Centralized Electronic Ordering - All Locations) Patient Can Go To The Location Of Their Choice, 03/19/2023 09:38:52 03/18/1903/21/2023 GIARD IA LAMBL IA, DIREC T DETEC TION EIA giardia lamblia Ag, EIA NEGATI VE Refer ence range : NEGAT BRAEDEN Test perfo rmed by [facility], [address], [place] [address] Not Available [facility] (Centralized Electronic Ordering - All Locations) Patient Can Go To The Location Of Their Choice, 03/21/2023 14:07:15 03/18/19 24 03/23/2023 CALPR OTECT IN,FE JEAN PIERRE calprotectin ,fecal 8 Refer ence range : 0 to 120 Unit: ug/g (NOTE ) Re ntrat ion Inter preta tion Follo w-Up < 5 - 50 ug/g Makeda l None >50 -120 ug/g Borde rline Re-ev aluat e in 4-6 weeks >120 ug/g Abnor mal Repea t as clini sydnee indic ated Test perfo rmed at [facility] , [address] [place] [address] , [place] [address] Not Available [facility] (Centralized Electronic Ordering - All Locations) Patient Can Go To The Location Of Their Choice, 03/23/2023 00:06:14 03/18/19 24 03/18/2023 ROUTI NE CULTU RE, STOOL stool culture source STOOL Not Available [facility] ([facility] Order[facility] - All Locations) Patient Can Go To The Location Of Their Choice, 03/25/2023 14:09:20 03/18/19 24 03/25/2023 ROUTI NE CULTU RE, STOOL salmonella/s higella screen Final report Not Available [facility] (Centralized Electronic Ordering - All Locations) Patient Can Go To The Location Of Their Choice, 03/25/2023 14:09:20 03/18/19 24 03/25/2023 ROUTI NE CULTU RE, STOOL campylobacte r culture Final report Not Available [facility] (Centralized Electronic Ordering - All Locations) Patient Can Go To The Location Of Their Choice, 03/25/2023 14:09:20 03/18/19 24 03/25/2023 ROUTI NE CULTU RE, STOOL E coli shiga toxin EIA NEGATI VE Refer ence range : NEGAT BRAEDEN Test perfo rmed by [facility], [address], [place] [address] Not Available [facility] (Centralized Electronic Ordering - All Locations) Patient Can Go To The Location Of Their Choice, 03/25/2023 14:09:20 03/18/19 24 03/25/2023 SALMO DARWIN /SHIG CATRACHO RESUL TS screen result 1 Commen t (NOTE ) No Salmo darwin or Shige lla recov ered. Test perfo rmed by [facility], [address] [place] [address] Not Available [facility] (Centralized Electronic Ordering - All Locations) Patient Can Go To The Location Of Their Choice, [id number] 03/25/2023 14:09:42 03/18/19 24 03/25/[address] RESUL TS culture result 1 Commen t (NOTE ) No Campy lobac ter speci es isola cristiano. Test perfo rmed by [facility], [address], [place] [address] Not Available [facility] (Centralized Electronic Ordering - All Locations) Patient Can Go To The Location Of Their Choice, [id number] 03/25/2023 14:09:43 08/26/19 24 08/26/2023 CBC w/ auto diff WBC 7.6 Not Available [facility] [address], [address], 08/29/2023 13:24:38 08/26/19 24 08/26/2023 CBC w/ auto diff RBC 4.57 Not Available [facility] [address], [address], 08/29/2023 13:24:38 08/26/19 24 08/26/2023 CBC w/ auto diff HGB 13.9 Not Available [address], [address], 08/29/2023 13:24:38 08/26/19 24 08/26/2023 CBC w/ auto diff HCT 42.1 Not Available [facility] [address], [address], 08/29/2023 13:24:38 08/26/19 24 08/26/2023 CBC w/ auto diff plt 209 Not Available [facility] [address], [address], 08/29/2023 13:24:38 01/03/20 24 01/04/2024 COMP. METAB OLIC PANEL (14) glucose 83 mg/dL 70-99 normal Not Available [facility] ([facility]) [address] [place], [address], 01/04/2024 14:06:45 01/03/20 24 01/04/2024 COMP. METAB OLIC PANEL (14) BUN 22 mg/dL 8-27 normal Not Available [facility] ([facility]) [address] [place], [address], 01/04/2024 14:06:45 01/03/20 24 01/04/2024 COMP. METAB OLIC PANEL (14) creatinine 0.82 mg/dL 0.57-1 .00 normal Not Available [facility] ([facility]) [address] [facility], [place], [address], 01/04/2024 14:06:45 01/03/20 24 01/04/2024 COMP. METAB OLIC PANEL (14) eGFR 72 mL/mi n/1.7 3 >59 normal Not Available [facility] ([facility]) [address] [place], [address], 01/04/2024 14:06:45 01/03/20 24 01/04/2024 COMP. METAB OLIC PANEL (14) BUN/creatini ne ratio 27 12-28 normal Not Available [facility] ([facility]) [address] [place], [address], 01/04/2024 14:06:45 01/03/20 24 01/04/2024 COMP. METAB OLIC PANEL (14) sodium 142 mmol/ L 134-14 4 normal Not Available [facility] ([facility]) [address] [place], [address], 01/04/2024 14:06:45 01/03/20 24 01/04/2024 COMP. METAB OLIC PANEL (14) potassium 4.5 mmol/ L 3.5-5. 2 normal Not Available [facility] ([facility]) [address] [place], [id number], 01/04/2024 14:06:45 01/03/20 24 01/04/2024 COMP. METAB OLIC PANEL (14) chloride 103 mmol/ L 96-106 normal Not Available [facility] ([facility]) [address] [place], [id number], 01/04/2024 14:06:45 01/03/20 24 01/04/2024 COMP. METAB OLIC PANEL (14) carbon dioxide, total 21 mmol/ L 20-29 normal Not Available [facility] ([facility]) [address] [place], [id number], 01/04/2024 14:06:45 01/03/20 24 01/04/2024 COMP. METAB OLIC PANEL (14) calcium 9.8 mg/dL 8.7-10 .3 normal Not Available [facility] ([facility]) [address] [place], [id number], 01/04/2024 14:06:45 01/03/20 24 01/04/2024 COMP. METAB OLIC PANEL (14) protein, total 7.0 g/dL 6.0-8. 5 normal Not Available [facility] ([facility]) [address] [place], [id number], 01/04/2024 14:06:45 01/03/20 24 01/04/2024 COMP. METAB OLIC PANEL (14) albumin 4.4 g/dL 3.7-4. 7 normal Not Available [facility] ([facility]) [address] [place], [id number], 01/04/2024 14:06:45 01/03/20 24 01/04/2024 COMP. METAB OLIC PANEL (14) globulin, total 2.6 g/dL 1.5-4. 5 Not Available [facility] ([facility]) [address] [place], [address], 01/04/2024 14:06:45 01/03/20 24 01/04/2024 COMP. METAB OLIC PANEL (14) bilirubin, total 0.2 mg/dL 0.0-1. 2 normal Not Available [facility] ([facility]) [address] [facility] [place], [address], 01/04/2024 14:06:45 01/03/20 24 01/04/2024 COMP. METAB OLIC PANEL (14) alkaline phosphatase 92 IU/L 44-121 normal Not Available [facility] ([facility]) [address] [facility] [place], [address], 01/04/2024 14:06:45 01/03/20 24 01/04/2024 COMP. METAB OLIC PANEL (14) AST (SGOT) 18 IU/L 0-40 normal Not Available [facility] ([facility]) [address] [place], [address], 01/04/2024 14:06:45 01/03/20 24 01/04/2024 COMP. METAB OLIC PANEL (14) ALT (SGPT) 16 IU/L 0-32 normal Not Available [facility] ([facility]) [address] [place], [address], 01/04/2024 14:06:45 01/03/20 24 01/04/2024 LIPID PANEL cholesterol, total 181 mg/dL 100-19 9 normal Not Available [facility] ([facility]) [address] [place], [address], 01/04/2024 14:06:47 01/03/20 24 01/04/2024 LIPID PANEL triglyceride s 188 mg/dL 0-149 above high normal Not Available [facility] ([facility]) [address] [place], [address], 01/04/2024 14:06:47 01/03/20 24 01/04/2024 LIPID PANEL HDL cholesterol 69 mg/dL >39 normal Not Available [facility] ([facility]) [address] [facility], [place], [address], 01/04/2024 14:06:47 01/03/20 24 01/04/2024 LIPID PANEL VLDL cholesterol jean pierre 31 mg/dL 5-40 Not Available [facility] ([facility]) [address] [place], [address], 01/04/2024 14:06:47 01/03/20 24 01/04/2024 LIPID PANEL LDL chol calc ([facility]) 81 mg/dL 0-99 Not Available [facility] ([facility]) [address] [facility], [place], [address], 01/04/2024 14:06:47 01/03/20 24 01/04/2024 LIPID PANEL LDL calc comment: HEALTH INSURANCE ADJUSTER Not Available [facility] ([facility]) [address] [facility], [place], [address], 01/04/2024 14:06:47 01/03/20 24 01/04/2024 LEAD, BLOOD (ADUL T) lead, blood (adult) 1.7 ug/dL 0.0-3. 4 Testi ng perfo rmed by Induc tivel y coupl ed plasm a/Mas s Spect romet ry. Sylvie sis by induc tivel y coupl ed plasm a/mas s spect romet ry (ICP/ MS) Envir onmen sallie Expos ure: WHO Recom menda tion <5.0 Occup ation al Expos ure: OSHA Lead Std 40.0 AMBAR 30.0 Detec tion Limit = 1.0 Not Available [facility] ([facility]) [address] [facility], [place], [address], 01/04/2024 14:06:47 02/28/19 25 02/29/2024 CBC w/ auto diff WBC 7.9 Not Available [facility] [address] [place] [address], [address], 03/01/2024 16:44:40 01/15/20 25 02/29/2024 CBC w/ auto diff RBC 4.55 Not Available [facility] [address], [address], 03/01/2024 16:44:40 02/28/19 25 02/29/2024 CBC w/ auto diff HGB 14.0 Not Available [address], [address], 03/01/2024 16:44:40 02/28/19 25 02/29/2024 CBC w/ auto diff HCT 41.8 Not Available [address], [address], 03/01/2024 16:44:40 02/28/19 25 02/29/2024 CBC w/ auto diff plt 219 Not Available [address], [address], 03/01/2024 16:44:40 12/30/19 23 12/29/2022 mm digit al mammo unila t left Diagno stic left mammog chrissie Six-mo nth follow -up to a benign biopsy of calcif icatio ns. Compar ottoniel made with previo us studie s most recent ly 023 with additi onal views on 06/16/19 TECHNI QUE: 2-D Spot magnif icatio n views are obtain ed in the CC and 90 degree mediol ateral projec tion. FINDIN GS: The biopsy marker is presen t in the upper outer breast . Most of the calcif icatio ns have been remove d. There is possib ly a small amount of postbi opsy scarri ng direct ly adjace nt to the marker on CC projec tion. IMPRES LASHELL: Remova l of most of the biopsy -prove n benign calcif icatio ns. Biopsy marker now in place here. Recomm end bilate ral screen ing mammog nito in 6 months . BI-RAD S 2 (Benig n) Lay letter mailed to mesfin olivia WSN: [id number] Orderi ng Physic rose: Candace Farooq Dictat ed By: Chelsea Eastman MD Dictat ed Date/T stephania: 12:11 pm Review ed By: Chelsea Eastman MD Signed By: Chelsea Eastman MD Signed Date/T stephania: 12:11 pm Transc ribed By: DEMETRA Transc riptio n Date/T stephania: 11:45 am Birads : Patien t Class: Outpat ient [email or web address] [facility] (Outpt Imaging) [address], [place], [address], 12/29/2022 13:29:23 01/13/20 23 01/12/2023 CT, abdom en, w/o contr ast CT Abd W/O Contra st Reason : D35.01 BENIGH N NEOPLA SM OR ADRENA L GLAND; Clinic al Questi on(s): Other: TECHNI QUE: Helica l CT scan was perfor med throug h the abdome n withou t IV contra st. Images are format cristiano in axial, sagitt al and strong l planes . This study was perfor med withou t oral contra st. Weight -based protoc ol using automa tic tube modula tion was used to optimi ze exposu re parame ters. CTDIvo l Body: 14.40 mGy, DLP Body: 387 mGy*cm . COMPAR OTTONIEL: CT abdome n from 2019 FINDIN GS: Financial Reporting Manager View Findin gs, Lines and Tubes: None. Visual ized Chest: Lung bases are clear. No pleura l effusi on. The heart is normal in size. No perica rdial effusi on. Diaphr agm: Normal . Liver: Diffus e low-at tenuat ion throug hout the liver parenc hyma consis tent with hepati c steato sis. No eviden ce of mass. Gallbl adder: No CT eviden ce of gallbl adder pathol ogy. Bile ducts: No biliar y ductal dilati on. Spleen : Normal . Pancre as: Normal . Adrena l glands : 28 x 25 mm right adrena l adenom a (2:30) is unchan ged from 2020. Densit y measur es -3 Hounsf ield units. No left adrena l nodule . Kidney s and ureter s: No hydron ephros is, stones , or noncon trast eviden ce of suspic ious masses . Stomac h, small bowel, and large bowel: Visual ized stomac h and bowel are normal . Few coloni c divert icula withou t eviden ce of acute inflam mation . Perito neum and retrop eriton eum: No ascite s or pneumo perito neum. No omenta l or mesent aye lesion s. Lymph nodes: No enlarg ed lymph nodes. Blood vessel s: Modera te athero sclero tic vascul ar calcif icatio n. Emboli zation coils in the spleni c artery with associ ated streak artifa ct. No aortic aneury sm. Abdomi nal wall: Tiny fat-co ntaini ng umbili jean pierre hernia . Bones: No acute abnorm ality. Osteop enia. Mild spine degene rative change s. IMPRES LASHELL: Compar ed to 2019, unchan ged 28 mm right adrena l adenom a. No suspic ious lesion or acute abnorm ality in the abdome n on noncon trast exam. WSN: [id number] Orderi ng Physic rose: Candace Farooq Dictat ed By: Michael Jones MD Dictat ed Date/T stephania: 2:26 pm Review ed By: Michael Jones MD Signed By: Michael Jones MD Signed Date/T stephania: 2:26 pm Transc ribed By: DEMETRA Transc ribed Date/T stephania: 2:22 pm Patien t Class: Outpat ient [facility] (Outpt Imaging) [address] [facility], [place], [address], 01/13/2023 09:43:07 04/15/19 24 04/15/2023 MRI, cervi jean pierre spine , w/o contr ast MRI Cervic al Spine W/O Contra st Reason : M54.2 CERVIC ALGIA; [facility] on(s): Other: Other: TECHNI QUE: MRI of the cervic al spine was perfor med withou t intrav enous contra st utiliz ing sagitt al T1, sagitt al T2, sagitt al STIR, axial gradie nt echo, and axial T2-artur ghted sequen yao. COMPAR OTTONIEL: MRI of 2017 FINDIN GS: LOCALI ZER: No additi onal findin gs on limite d locali zer images . ALIGNM ENT, VERTEB KAT, MARROW , AND DISCS: Minima l retrol isthes is of C3 on C4 is redemo nstrat ed. There is minima l crystal listhe sis of C7 on T1 and T1 on T2. Otherw ise, the cervic al spine alignm ent is preser cholo. Verteb ral body height s are preser cholo. There are Modic type II endpla te marrow change s at C4-C5. Otherw ise, the bone marrow signal is normal . There is multil evel disc desicc ation with minima l disc bulges or protru sions as descri bed below. AERONAUTICAL PROJECT ENGINEER IOR FOSSA AND CORD: Visual ized customer experience associate ior fossa is normal . The cervic al cord is normal in signal and calibe r. PARASP INAL TISSUE S: Soft tissue s of the neck are unrema rkable . Major cervic al flow voids are presen t. The cranio cervic al juncti on and C1-C2 articu lation are unrema rkable . DETAIL ED FINDIN GS BY LEVEL: C2-C3: No signif icant canal stenos is or neural forami nal narrow ing. There is disc desicc ation withou t disc bulgin g. C3-C4: There are customer experience associate ior endpla te spurs and a minima l broad- based disc bulge, simila r to prior examin ation flatte freya the ventra l cord and result ing in mild canal stenos is, unchan ged. There are uncove rtebra l and facet joint spurs result ing in severe right and modera te left forami nal stenos is, progre ssed since prior examin ation. C4-C5: There is a minima l disc bulge and customer experience associate ior endpla te spurs flatte freya the ventra l cord and result ing in mild-t o-mode rate canal stenos is, progre ssed since prior examin ation in conjun ction with ligame ntum flavum thicke freya. There are uncove rtebra l and facet joint spurs result ing in severe right and modera te to severe left forami nal stenos is, progre ssed since prior examin ation. C5-C6: There is a minima l disc bulge and customer experience associate ior endpla te spurs flatte freya the ventra l thecal sac and remode ling the cord with mild canal stenos is, not signif icantl y change d since prior examin ation. There are uncove rtebra l and facet joint spurs result ing in modera te right and severe left forami nal stenos is, simila r to prior examin ation. C6-C7: There are customer experience associate ior endpla te spurs and a minima l disc bulge withou t canal stenos is. There is no forami nal stenos is. C7-T1: There is a new minima l disc bulge withou t canal or forami nal stenos is. IMPRES LASHELL: Mildly progre ssed degene rative change s of the cervic al spine most pronou nced at C4-C5 and C3-C4 as descri bed. No abnorm al signal within the cervic al cord. WSN: [id number] Orderi ng Physic rose: Candace Farooq Dictat ed By: Makenzie Granados MD Dictat ed Date/T stephania: 3:45 pm Review ed By: Makenzie Granados MD Signed By: Makenzie Granados MD Signed Date/T stephania: 3:45 pm Transc ribed By: DEMETRA Transc ribed Date/T stephania: 3:36 pm Patien t Class: Outpat ient [id number] [facility] (Outpt Imaging) [address] [facility], [place], [address], 04/20/2023 16:34:34 04/18/19 24 04/15/2023 imagi ng/di agnos tic resul t No observ ation record ed. [facility] [address], [place], [address], 05/06/2023 19:03:32 11/30/19 24 11/30/2023 MAMMO , scree freya, digit al, bilat eral PROCED URE: MM Digita l Mammo Screen ing INDICA TION: Screen ing for breast cancer . No known palpab le abnorm alitie s. COMPAR OTTONIEL: Multip le prior mammog verona dating back to 017. TECHNI QUE: Full-f ield digita l CC and MLO 3D tomosy nthesi s images of both breast s were acquir ed. Comput er-aid ed detect ion (CAD) was utiliz ed in the interp retati on of this study. DENSIT Y: There are scatte red areas of fibrog landul ar densit y. FINDIN GS: No suspic ious masses , suspic ious microc alcifi cation s, or areas of clementina ectura l distor tion are seen in either breast to sugges t malign ellen. Large dystro phic calcif icatio n in the upper outer aspect of the left breast , unchan ged. Scatte red benign -appea ring calcif icatio ns, unchan ged. Biopsy clip in the upper outer aspect the left breast . IMPRES LASHELL: No mammog raphic eviden ce of malign ellen. RECOMM ENDATI ON: Annual mammog raphic screen ing BI-RAD S: 2 (Benig n) Lay letter mailed to mesfin olivia WSN: [id number] Orderi ng Physic rose: Candace Farooq Dictat ed By: Kurt Conklin MD Dictfilemon ed Date/T stephania: 3:28 pm Review ed By: Kurt Conklin MD Signed By: Kurt Conklin MD Signed Date/T stephania: 3:28 pm Transc ribed By: DEMETRA Transc riptio n Date/T stephania: 3:23 pm Birads : Mesfin baker Class: Outpat ient [id number] [facility] ([facility]) [address] [place], [address], 12/01/2023 09:37:10 03/01/19 25 02/27/2024 bone densi ty No observ ation record ed. [address], [address], 03/02/2024 11:29:37 03/01/19 25 02/27/2024 bone densi ty No observ ation record ed. [address], [address], 03/02/2024 11:27:17 03/01/19 25 02/27/2024 bone densi ty No observ ation record ed. [address], [address], 03/02/2024 11:27:35 03/01/19 25 02/27/2024 bone densi ty No observ ation record ed. [address], [address], 03/02/2024 11:27:45 03/01/19 25 02/27/2024 bone densi ty No observ ation record ed. [address], [address], 03/02/2024 11:27:54 03/01/19 25 02/27/2024 bone densi ty No observ ation record ed. [address], [address], 03/02/2024 11:28:00 03/01/19 25 02/27/2024 bone densi ty No observ ation record ed. [address], [address], 03/02/2024 11:28:09 03/01/19 25 02/27/2024 bone densi ty No observ ation record ed. [address] [place], [address], 03/02/2024 11:28:15 03/01/19 25 02/27/2024 bone densi ty No observ ation record ed. [email or web address] [facility] [address], [address], 03/02/2024 11:28:24 03/01/19 25 02/27/2024 bone densi ty No observ ation record ed. [email or web address] [facility] [address], [address], 03/02/2024 11:28:32 Result Notes None recorded. 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 6 12:48:49 Allergic rhinitis 28734005 Completed 201108/28/2013 IMPRESSI ON: START WITH ZYRTEC. IF THIS NOT WORKING THEN CAN STEP UP TO EYE DROPS AND/OR NASAL SPRAY NEEDED; RECORDED 10/07/19 12 10:10AM BY DANNY KENNEY ON/MONI lindo [facility] 6 12:48:49 Elevated blood-pr essure reading without diagnosi s of hyperten lashell 528868348 Completed 201108/28/2013 RECORDED 09/16/19 12 9:41AM BY CANDACE STALEY MD, DANNY ON/MONI lindo [facility] 6 12:48:49 Screenin jeanne for malignan t neoplasm of breast Completed 201108/28/2013 RECORDED 08/26/19 12 5:32PM BY CANDACE STALEY MD, ANNOTATI ON/ADDEN DUM Peewee JacintoAlessand ro null, [facility] 6 12:48:49 Chest pain 65579925 Completed 201108/28/2013 IMPRESSI ON: NO FURTHER CP; RECORDED 10/07/19 12 10:10AM BY DANNY KENNEY ON/ADDEN DUM Peewee JacintoAlessand ro null, [facility] 6 12:48:49 Finding by method [id number] Completed 201108/28/2013 IMPRESSI ON: MOST LIKELY NONSPECI FIC BUT A LUNG PROBLEM COULD CAUSE LUQ AB PAIN SO WILL DO CXR; RECORDED 09/16/19 12 9:41AM BY CANDACE STALEY MD, DANNY ON/ADDEN DUM Peewee JacintoAlessand ro null, 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 6 12:48:49 Essentia l hyperten lashell 04604327 Active Loretta Ward null, [facility] 0 14:36:20 Malaise and fatigue 807501895 Completed 201108/28/2013 IMPRESSI ON: NO MEDICAL ETIOLOGY IS BEING FOUND. THIS MAY BE NORMAL CHANGES BUT WE WILL CONTINUE TO PURSUE A MEDICAL ETIOLOGY WITH A SECOND ENDO OPINION REGARDIN Jeanne HER PRESUMED ADRENAL ADENOMA. ; RECORDED 01/11/20 12 11:07AM BY DANNY KENNEY ON/ADDEN DUM Peewee JacintoAlessand ro null, [facility] 6 12:48:49 Influenz a vaccine needed [id number] 06 Completed 201208/28/2013 RECORDED 12/13/19 13 3:40PM BY FLACA DORMAN MA, NURSE VISIT Peewee lindo, [facility] 6 12:48:49 Gastroes ophageal reflux disease 391088193 Active Loretta Ward belgica, [facility] 0 14:36:21 Pure hypercho lesterol emia 709715090 Completed 11/03/2016 Will restart statin September 2014 Candace Owens MD [address], [place], [address] , [facility] 7 17:13:15 Hypercho lesterol emia 98679212 Completed 201308/28/2013 RESOLVED DATE: 03/08/19 14; ; RECORDED 03/08/19 14 10:01AM BY DANNY KENNEY ON/ADDEN [facility] Peewee lindo, [facility] 6 12:48:49 Incision al hernia 602853759 Completed 201108/28/2013 RECORDED 10/07/19 12 11:56AM BY CANDACE STALEY MD, [facility] Peewee lindo, [facility] 6 12:48:49 Hip pain 82885703 Completed 201308/28/2013 RECORDED 03/08/19 14 10:01AM BY DANNY KENNEY ON/[facility] Peewee lindo, [facility] 6 12:48:49 Left upper quadrant pain 927480282 Completed 201108/28/2013 IMPRESSI ON: MOST LIKELY CAUSE IS GASTRITI S OR PUD. DOUBT SPLEEN ISSUE BUT WITH HER RECENT VASCULAR PROCEDUR E (SHE SAYS IT WAS RELATED TO ARTERY GOING TO SPLEEN) SHE HAD DONE WILL CHECK PLATELET S IF PROTONIX WORKS WOULD DO 8 WEEK COURSE AND THEN TRIAL OFF OF IT; RECORDED 10/07/19 12 10:10AM BY DANNY KENNEY ON/ADDEN DUM Peewee Culver ro null, [facility] 6 12:48:49 Low back pain 405900625 Active Possibke spinal stenosis that does well with injectio n. Followed by rheum and has also seen [facility]. Candace Owens MD [address] [facility] [address], [place], [address] , [facility] 2 10:10:36 Screenin g for malignan t neoplasm of breast Completed 03/27/2014 Peewee go null, [facility] 6 12:48:49 Backache 729445727 Completed 201308/28/2013 RECORDED 03/08/19 14 10:01AM BY DANNY KENNEY ON/ADDEN DUM ePewee Culver ro null, [facility] 6 12:48:49 Migraine 36402218 Active Loretta lindo, [facility] 0 14:36:21 Migraine 80800441 Completed 201308/28/2013 RECORDED 03/08/19 14 10:01AM BY DANNY KENNEY ON/ADDEN DUM Peewee Culver ro null, [facility] 6 12:48:49 Neck pain 95818209 Active Seen by Dr Carrillo Nov 2016 and schedule d for facet injectio n; probable OA. Seen by Dr Mims May 2018 who feels that this does not warrent any aggressi ve care and tried to reassure the patient. Loretta lindo [facility] 0 14:36:21 Active or passive immuniza tion Completed 201008/28/2013 RECORDED 04/02/19 11 11:01AM BY CRISTINA WARD, HISTORIC AL SUMMARY Peewee lindo, [facility] 6 12:48:49 Administ ration of tetanus vaccine Completed 201108/28/2013 RECORDED 08/26/19 12 5:32PM BY CANDACE STALEY MD, [facility]ATI ON[facility] Peewee Culver ro null, [facility] 6 12:48:49 Osteoart hritis 394745204 Active Loretta Ward null, [facility] 0 14:36:20 Disorder of bone and articula r cartilag e 470428508 Active Loretta Ward null, [facility] 0 14:36:21 Perforat ion of tympanic membrane 90119808 Active Loretta Ward null, [facility] 0 14:36:21 Pneumoni a 886904974 Completed 201108/28/2013 IMPRESSI ON: BETTER WITH LEVAQUIN , QUIT SMOKING; RECORDED 09/16/19 12 9:41AM BY CANDACE STALEY MD, ANNOTATI ON/[facility] Peewee Culver ro null, 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 0 14:36:20 Adult health examinat ion Completed 201308/28/2013 RECORDED 03/08/19 14 10:01AM BY ROSA M KENNEYATI ON/[facility] [facility] 6 12:48:49 Sciatica [id number] Completed 201108/28/2013 RECORDED 10/07/19 12 11:56AM BY CANDACE STALEY MD, [facility]NOTATI ON[facility] Pee[place]e go null, [facility] 6 12:48:49 Screenin g for malignan t neoplasm of cervix Completed 201108/28/2013 RECORDED 08/26/19 12 5:32PM BY CANDACE STALEY MD, ANNOTATI ON[facility] P[place] go null, [facility] 6 12:48:49 Screenin g for malignan t neoplasm of colon Completed 03/27/2014 Peewee Culver ro null, [facility] 6 12:48:50 Sprain of hand [id number] Completed 201108/28/2013 RECORDED 10/07/19 12 10:10AM BY DANNY KENNEY ON/ADDEN DUM Peewee Culver ro null, [facility] 6 12:48:49 Administ ration of diphther ia and tetanus vaccine Completed 201208/28/2013 RECORDED 09/05/19 13 8:22AM BY DANNY KENNEY ON/ADDEN DUM Peewee Wattsand ro null, [facility] 6 12:48:49 Tobacco dependen ce syndrome [id number] Completed 201308/28/2013 RECORDED 03/08/19 14 10:01AM BY DANNY KENNEY ON/ADDEN DUM Peewee Wattsand ro null, [facility] 6 12:48:49 Major depressi ve disorder [id number] Active This is a minor issue and is resolvin gJelena Ward null, [facility] 0 14:36:21 Disorder of adrenal gland 78095414 Completed 201109/20/2013 RECORDED 10/07/19 12 11:55AM BY CANDACE STALEY MD, DANNY ON/ADDEN DUM Peewee Culver ro null, [facility] 6 12:48:49 Allergic rhinitis 48105249 Completed 201109/20/2013 IMPRESSI ON: START WITH ZYRTEC. IF THIS NOT WORKING THEN CAN STEP UP TO EYE DROPS AND/OR NASAL SPRAY NEEDED; RECORDED 10/07/19 12 10:10AM BY DANNY KENNEY ON/ADDEN MISAEL Culver ro null, [facility] 6 12:48:49 Elevated blood-pr essure reading without diagnosi s of hyperten lashell [id number] Completed 201109/20/2013 RECORDED 09/16/19 12 9:41AM BY CANDACE STALEY MD, ANNOTATI ON/ADDEN DUM [place]e Culver ro null, [facility] 6 12:48:49 Screenin g for malignan t neoplasm of breast Completed 201109/20/2013 RECORDED 08/26/19 12 5:32PM BY CANDACE STALEY MD, ANNOTATI ON/ADDEN DUM Pee[place]e JacitnoAlegavi ro null, [facility] 6 12:48:49 Chest pain 59361504 Completed 201109/20/2013 IMPRESSI ON: NO FURTHER CP; RECORDED 10/07/19 12 10:10AM BY DANNY KENNEY ON/ADDEN DUM Peewee Culver ro null, [facility] 6 12:48:49 Finding by method [id number] Completed 201109/20/2013 IMPRESSI ON: MOST LIKELY NONSPECI FIC BUT A LUNG PROBLEM COULD CAUSE LUQ AB PAIN SO WILL DO CXR; RECORDED 09/16/19 12 9:41AM BY CANDACE STALEY MD, DANNY ON/ADDEN DUM Peewee Culver ro null, 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 6 12:48:49 Malaise and fatigue 216076382 Completed 201109/20/2013 IMPRESSI ON: NO MEDICAL ETIOLOGY IS BEING FOUND. 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 ; RECORDED 01/11/20 12 11:07AM BY DANNY KENNEY ON/ADDEN DUM Peewee Culver ro null, [facility] 6 12:48:49 Influenz a vaccine needed [id number] 06 Completed 201209/20/2013 RECORDED 12/13/19 13 3:40PM BY FLACA DORMAN MA, NURSE VISIT P[place]e Culver ro null, [facility] 6 12:48:49 Hypercho lesterol emia [id number] Completed 201309/20/2013 RESOLVED DATE: 03/08/19 14; ; RECORDED 03/08/19 14 10:01AM BY DANNY KENNEY ON/ADDEN DUM P[place]wee Culver ro null, [facility] 6 12:48:49 Incision al hernia 063320833 Completed 201109/20/2013 RECORDED 10/07/19 12 11:56AM BY CANDACE STALEY MD, DANNY ON/ADDEN DUM P[place]e Culver ro null, [facility] 6 12:48:49 Hip pain 93163642 Completed 201309/20/2013 RECORDED 03/08/19 14 10:01AM BY DANNY KENNEY ON/[facility] [place] JacintoAlebrittand ro null, [facility] 6 12:48:49 Left upper quadrant pain [id number] Completed 201109/20/2013 IMPRESSI ON: MOST LIKELY CAUSE IS GASTRITI S OR PUD. DOUBT SPLEEN ISSUE BUT WITH HER RECENT VASCULAR PROCEDUR E (SHE SAYS IT WAS RELATED TO ARTERY GOING TO SPLEEN) SHE HAD DONE WILL CHECK PLATELET S IF PROTONIX WORKS WOULD DO 8 WEEK COURSE AND THEN TRIAL OFF OF IT; RECORDED 10/07/19 12 10:10AM BY DANNY KENNEY ON/ADDEN DUM [place]e JacintoAlessand ro null, [facility] 6 12:48:49 Backache [id number] Completed 201309/20/2013 RECORDED 03/08/19 14 10:01AM BY ROSA M KENNEYATI ON/ADDEN DUM Peewee Hunter'Alessand ro null, [facility] 6 12:48:49 Active or passive immuniza tion Completed 201009/20/2013 RECORDED 04/02/19 11 11:01AM BY CRISTINA WARD, HISTORIC AL SUMMARY [place]e Hunter'Alessand ro null, [facility] 6 12:48:49 Administ ration of tetanus vaccine Completed 201109/20/2013 RECORDED 08/26/19 12 5:32PM BY CANDACE STALEY MD, DANNY ON/ADDEN DUM [place]e Hunter'Alessand ro null, [facility] 6 12:48:49 Pneumoni a [id number] Completed 201109/20/2013 IMPRESSI ON: BETTER WITH LEVAQUIN , QUIT SMOKING; RECORDED 09/16/19 12 9:41AM BY CANDACE STALEY MD, ROSA MATI ON/ADDEN DUM P[place]e Hunter'Alessand ro null, [facility] 6 12:48:49 Adult health examinat ion Completed 201309/20/2013 RECORDED 03/08/19 14 10:01AM BY ROSA M KENNEYATI ON/ADDEN DUM P[place]e Hunter'Alessand ro null, [facility] 6 12:48:49 Sciatica [id number] Completed 201109/20/2013 RECORDED 10/07/19 12 11:56AM BY CANDACE STALEY MD, ROSA MATI ON/ADDEN DUM [place]e JacintoAlessand ro null, [facility] 6 12:48:49 Screenin g for malignan t neoplasm of cervix Completed 201109/20/2013 RECORDED 08/26/19 12 5:32PM BY CANDACE STALEY MD, ANNOTATI ON/ADDEN DUM [place] JacintoAlessand ro null, [facility] 6 12:48:49 Sprain of hand 47225422 Completed 201109/20/2013 RECORDED 10/07/19 12 10:10AM BY DANNY KENNEY ON/ADDEN DUM [place] JacintoAlessand ro null, [facility] 6 12:48:49 Administ ration of diphther ia and tetanus vaccine Completed 201209/20/2013 RECORDED 09/05/19 13 8:22AM BY DANNY KENNEY ON/ADDEN DUM [place] JacintoAlessand ro null, [facility] 6 12:48:49 Tobacco dependen ce syndrome 08498328 Completed 201309/20/2013 RECORDED 03/08/19 14 10:01AM BY DANNY KENNYE ON/ADDEN DUM [place] JacintoAlessand ro null, [facility] 6 12:48:49 Disorder of adrenal gland 03825367 Completed 201109/21/2013 RECORDED 10/07/19 12 11:55AM BY CANDACE STALEY MD, DANNY ON/ERASTOPRATIBHA Culver ro null, [facility] 6 12:48:49 Allergic rhinitis 63849295 Completed 201109/21/2013 IMPRESSI ON: START WITH ZYRTEC. IF THIS NOT WORKING THEN CAN STEP UP TO EYE DROPS AND/OR NASAL SPRAY NEEDED; RECORDED 10/07/19 12 10:10AM BY DANNY KENNEY ON/ERASTOEN MISAEL Culver ro null, [facility] 6 12:48:49 Elevated blood-pr essure reading without diagnosi s of hyperten lashell 830619807 Completed 201109/21/2013 RECORDED 09/16/19 12 9:41AM BY CANDACE STALEY MD, DANNY ON/ADDEN DUM [place]wee Culver ro null, [facility] 6 12:48:49 Screenin g for malignan t neoplasm of breast Completed 201109/21/2013 RECORDED 08/26/19 12 5:32PM BY CANDACE STALEY MD, DANNY ON/ADDPRATIBHA go null, [facility] 6 12:48:49 Chest pain 90939913 Completed 201109/21/2013 IMPRESSI ON: NO FURTHER CP; RECORDED 10/07/19 12 10:10AM BY DANNY KENNEY ON/ADDEN DUM [place] go null, [facility] 6 12:48:49 Finding by method [id number] Completed 201109/21/2013 IMPRESSI ON: MOST LIKELY NONSPECI FIC BUT A LUNG PROBLEM COULD CAUSE LUQ AB PAIN SO WILL DO CXR; RECORDED 09/16/19 12 9:41AM BY CANDACE STALEY MD, DANNY ON/ADDPRATIBHA go null, [facility] 6 12:48:50 Tietze's disease 14393740 Completed 201109/21/2013 RECORDED 10/07/19 12 10:10AM BY DANNY KENNEY ON/MONI go null, [facility] 6 12:48:49 Malaise and fatigue 382977065 Completed 201109/21/2013 IMPRESSI ON: NO MEDICAL ETIOLOGY IS BEING FOUND. 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 ; RECORDED 01/11/20 12 11:07AM BY DANNY KENNEY/MONI lindo, [facility] 6 12:48:49 Influenz a vaccine needed [id number] 06 Completed 201209/21/2013 RECORDED 12/13/19 13 3:40PM BY FLACA DORMAN MA, NURSE VISIT [place]e lindo, [facility] 6 12:48:49 Hypercho lesterol emia 27596581 Completed 201309/21/2013 RESOLVED DATE: 03/08/19 14; ; RECORDED 03/08/19 14 10:01AM BY DANNY KENNEY ON/ADDEN DUM Peewee Culver ro null, [facility] 6 12:48:49 Incision al hernia 864215258 Completed 201109/21/2013 RECORDED 10/07/19 12 11:56AM BY CANDACE STALEY MD, DANNY ON/ADDEN DUM Peewee Culver ro null, [facility] 6 12:48:49 Hip pain 59456051 Completed 201309/21/2013 RECORDED 03/08/19 14 10:01AM BY DANNY KENNEY ON/ADDEN DUM Peewee Culver ro null, [facility] 6 12:48:49 Left upper quadrant pain 220666959 Completed 201109/21/2013 IMPRESSI ON: MOST LIKELY CAUSE IS GASTRITI S OR PUD. DOUBT SPLEEN ISSUE BUT WITH HER RECENT VASCULAR PROCEDUR E (SHE SAYS IT WAS RELATED TO ARTERY GOING TO SPLEEN) SHE HAD DONE WILL CHECK PLATELET S IF PROTONIX WORKS WOULD DO 8 WEEK COURSE AND THEN TRIAL OFF OF IT; RECORDED 10/07/19 12 10:10AM BY DANNY KENNEY ON/ADDEN DUM Peewee Culver ro null, [facility] 6 12:48:49 Backache [id number] Completed 201309/21/2013 RECORDED 03/08/19 14 10:01AM BY DAN[facility] ON[facility] [place] Culver ro null, [facility] 6 12:48:49 Active or passive immuniza tion Completed 201009/21/2013 RECORDED 04/02/19 11 11:01AM BY CRISTINA WARD, HISTORIC AL SUMMARY Peewee Culver ro null, [facility] 6 12:48:49 Administ ration of tetanus vaccine Completed 201109/21/2013 RECORDED 08/26/19 12 5:32PM BY CANDACE STALEY MD, ROSA MATI ON/ADDEN DUM [place]e JacintoAlessand ro null, [facility] 6 12:48:49 Pneumoni a [id number] Completed 201109/21/2013 IMPRESSI ON: BETTER WITH LEVAQUIN , QUIT SMOKING; RECORDED 09/16/19 12 9:41AM BY CANDACE STALEY MD, DANNY ON/ADDEN DUM [place]e JacintoAlessand ro null, [facility] 6 12:48:49 Adult health examinat ion Completed 201309/21/2013 RECORDED 03/08/19 14 10:01AM BY DANNY KENNEY ON/ADDEN DUM [place]e JacintoAlessand ro null, [facility] 6 12:48:49 Sciatica [id number] Completed 201109/21/2013 RECORDED 10/07/19 12 11:56AM BY CANDACE STALEY MD, DANNY ON/ADDEN DUM [place]e JacintoAlessand ro null, [facility] 6 12:48:49 Screenin g for malignan t neoplasm of cervix Completed 201109/21/2013 RECORDED 08/26/19 12 5:32PM BY CANDACE STALEY MD, DANNY ON/ADDEN DUM [place]e JacintoAlessand ro null, [facility] 6 12:48:49 Sprain of hand 44765072 Completed 201109/21/2013 RECORDED 10/07/19 12 10:10AM BY DANNY KENNEY ON/ADDEN DUM [place] JacintoAlessand ro null, [facility] 6 12:48:49 Administ ration of diphther ia and tetanus vaccine Completed 201209/21/2013 RECORDED 09/05/19 13 8:22AM BY DANNY KENNEY ON/ADDEN DUM Peewee HunterLaylaChandu ro null, [facility] 6 12:48:49 Tobacco dependen ce syndrome 98151712 Completed 201309/21/2013 RECORDED 03/08/19 14 10:01AM BY ROSA M KENNEYATI ON/ADDEN DUM Peewee Macmiracle ro null, [facility] 6 12:48:49 Allergic rhinitis 26312550 Active Loretta lindo, [facility] 0 14:36:20 Cough 38676047 Completed 03/26/2016 Candace Owens MD [address] [facility] [address], [facility] [place], [address] , [facility] 8 10:37:43 Tobacco dependen ce syndrome 30208168 Active Trying to quit with chantix Loretta lindo [facility] 0 14:36:21 Diarrhea 92953060 Completed 201403/26/2016 NILDA Epstein, [facility] 7 14:12:31 Contusio n of toenail 83875556 Active 2014 referred to podiatry Loretta lindo [facility] 0 14:36:20 Allergic conjunct ivitis 578524114 Completed 03/26/[address] [facility] 7 14:12:23 Insomnia 320704587 Active Loretta lindo [facility] 0 14:36:21 Dysuria 76765375 Completed 03/26/2016 NILDA Epstein, [facility] 7 14:12:20 Increase d frequenc y of urinatio n 948090901 Completed 03/26/[address] [facility] 7 14:12:16 Anterior knee pain 899183141 Active Loretta lindo [facility] 0 14:36:20 Hyperlip idemia 38422941 Active 2016 Loretta lindo, [facility] 0 14:36:21 Osteopen ia 983291009 Active 2016 Last BMD 03/2103; BMD done July 2018, stable Loretta lindo, [facility] 0 14:36:21 Subacrom ial bursitis 79384571 Active 2016 Gets injectio ns at Rheum Loretta lindo [facility] 0 14:36:20 Aneurysm of splenic artery 06667873 Active 2017 Candace Owens MD [address] [facility] [address], [place], [address] , [facility] 8 16:06:43 Cramp in lower limb 296708919 Active 2017 Loretta lindo, [facility] 0 14:36:21 Cough 46624242 Active 2017 Loretta lindo, [facility] 0 14:36:21 Pain in left lower limb 056342384 Active 2017 Left groin pain since 2012. Followed by [facility]. Loretta lindo [facility] 0 14:36:21 Spinal stenosis of lumbar region 56281685 Active 2020 Followed by [facility] Last injectio n September 2022. Candace Owens MD [address], [place], [address] , [facility] 3 07:44:17 Hyperten lashell monitori ng declined 333519516 Active 2021 Accuheal th NILDA Gupta, [facility] 2 09:47:37 Stenosin g tenosyno vitis 55662475 Active 2021 Bilatera l ring fingers; injected by hand surgeon. Candace Owens MD [address] [facility] [address], [place], [address] , [facility] 2 09:32:43 Problem Notes None recorded. Procedures Surgical History Date Name Laterality Status Provider Name and Address Organization Details Recorded Time 02/26/19 25 Dxa bone density lisa vrt fx completed Suellen Unger [facility] 03/02/2024 11:27:12 11/30/19 24 Most Recent Mammogram completed Suellen Unger [facility] 12/01/2023 09:37:07 05/20/19 24 Colonoscopy completed Suellen Unger [facility] 05/20/2023 13:12:44 12/30/19 23 Mammogram screening completed Emerald Maldonado [facility] 12/29/2022 13:29:13 02/06/[address] of lungs completed Suellen Unger [facility] 02/05/2022 15:48:02 01/22/20 22 hand injection completed Suellen Unger [facility] 01/27/2022 10:26:37 07/01/19 22 Most Recent Bone Density completed Flower Wade MA [facility] 12/28/2021 13:48:13 07/01/19 22 Dxa bone density axial completed Flower Wade MA [facility] 07/31/2021 12:49:34 11/21/19 20 Six-Item Cognitive Test completed Aisha Miles MA [facility] 11/21/2019 14:14:21 11/07/19 19 Mini-Cog Test completed Mariah Hunt [facility] 11/06/2018 10:42:46 09/19/19 19 Date of Last Colonoscopy completed Loretta Ward [facility] 09/20/2018 14:58:46 08/16/19 19 Dxa bone density lisa vrt fx completed Mariah Hunt [facility] 08/16/2018 14:01:32 11/02/19 18 Mini-Cog Test completed Mariah Hunt [facility] 11/01/2017 10:16:51 10/27/19 17 Fall Risk Assessment completed Mariah Hunt [facility] 10/26/2016 14:03:31 10/27/19 17 Mini-Cog Test completed Mariah Hunt [facility] 10/26/2016 14:03:41 09/29/19 17 Orthopedic Surgery completed Haylee Fitzgerald [facility] 12/02/2016 15:50:50 10/21/19 16 Fall Risk Assessment completed Flaca Dorman MA [facility] 10/21/2015 11:05:22 10/21/19 16 Mini-Cog Test completed Flaca Dorman MA [facility] 10/21/2015 11:06:39 10/21/19 16 Advanced Care Planning completed Flaca Dorman MA [facility] 10/21/2015 10:59:15 06/11/19 16 Other completed Mariah Hunt [facility] 06/16/2015 11:30:32 09/27/19 15 Fall Risk Assessment completed Mariah Hunt [facility] 09/26/2014 11:16:38 09/27/19 15 Mini-Cog Test completed Mariah Hunt [facility] 09/26/2014 11:16:38 09/06/19 14 Fall Risk Assessment completed Mariah Hunt [facility] 09/05/2013 10:34:39 09/06/19 14 Mini-Cog Test completed Mariah Hunt [facility] 09/05/2013 10:34:39 06/15/19 14 Date of Last Pap Smear completed Mariah Hunt [facility] 09/05/2013 10:34:40 02/14/19 12 Hernia Repair completed Candace Owens MD [address] [place], [address], [facility] [place] 09/05/2013 10:59:04 10/16/19 04 Carpal tunnel surgery completed Candace Owens MD [address], [place], [address], [facility] [place] 10/26/2016 14:36:19 10/15/18 98 Partial removal of colon completed Candace Owens MD [address], [place], [address], [facility] [place] 10/26/2016 14:34:54 02/14/18 92 Total hysterectomy completed [facility] 03/26/2016 14:13:22 Imaging Results Imaging Date Name Status LastModified by Organiz ation Details LastModified Time 12/29/2022 mm digital mammo unilat left completed [facility] (Outpt [facility]) [address] [place], [address], 12/29/2022 13:29:23 01/12/2023 CT, abdomen, w/o contrast completed [facility] ([facility] [address] [place], [address], 01/13/2023 09:43:07 04/15/2023 MRI, cervical spine, w/o contrast completed [email or web address] [facility] ([facility]pt Imaging) [address] [place], [address], 04/20/2023 16:34:34 04/15/2023 imaging/diagno stic result completed [facility] [address] [place], [address], 05/06/2023 19:03:32 11/30/2023 MAMMO, screening, digital, bilateral completed [email or web address] [facility] ([facility]pt Imaging) [address] [place], [address], 12/01/2023 09:37:10 02/27/2024 bone density [place] [address] [facility] [address] [place] [address], [address], 03/02/2024 11:29:37 02/27/2024 bone density [place] [address] [facility] [address] [place] [address], [address], 03/02/2024 11:27:17 02/27/2024 bone density [place] [address] [facility] [address] [place] [address], [address], 03/02/2024 11:27:35 02/27/2024 bone density completed [place] [address] [facility] [address] [place] [address], [address], 03/02/2024 11:27:45 02/27/2024 bone density completed [place] [address] [facility] [address] [place] [address], [address], 03/02/2024 11:27:54 02/27/2024 bone density completed [place] [address] [facility] [address] [place] [address], [address], 03/02/2024 11:28:00 02/27/2024 bone density completed [place] [address] [facility] [address] [place] [address], [address], 03/02/2024 11:28:09 02/27/2024 bone density completed [place] [address] [facility] [address] [place] [address], [address], 03/02/2024 11:28:15 02/27/2024 bone density completed [place] [address] [facility] [address] [place] [address], [address], 03/02/2024 11:28:24 02/27/2024 bone density completed [place] [address] [facility] [address] [address], [address], 03/02/2024 11:28:32 Procedure Notes None recorded. Medical Equipment None Reported. Allergies Allergen ID Allergen Name Allergen Category Reaction Reaction Severity Criticality Documentation Date Start Date Code Code System Note Provider Name and Address Organization Details Recorded Time 46802 atorvasta tin medicatio n Not available Not available Not available 07/25/2019 25377 RxNorm [facility] null, [facility] 0 13:42:54 3345 Lipitor medicatio n arthralgi a (joint pain) Not available Not available 08/28/2013 67191 5 RxNorm REACT ION: LEG PAIN HUI Marie [address] [facility] [address], [place], [address], [facility] 5 17:54:36 46081 house dust mite environme nt Not available Not available Not available 12/28/2021 47935 UNK Flower Wade [place] null, [facility] 2 13:55:00 08778 Product containin g angiotens in-conver ting enzyme inhibitor (product) medicatio n cough mild low 12/30/2022 20041 009 SNOMED Candace cunningham MD [address] [facility] [address], [place], [address], [facility] 3 08:37:29 Medications Name Sig Start Date Stop Date Status Note LastModified by Organization Details LastModified Time Prescript ion - Prior Authoriza tion Request 02/19 completed Not Available Not Available Not Available eye allergy itch/red rlf 0.1% soln 12/28 completed Not Available Not Available Not Available Singulair 10 mg tablet Take 1 tablet every day by oral route at bedtime. 12/25 completed Not Available Not Available Not Available celecoxib 200 mg capsule TAKE 1 CAPSULE BY MOUTH EVERY DAY active Not Available Not Available No t Available azelastin e 0.05 % eye drops INSTILL 1 DROP INTO AFFECTED EYE(S) 2 TIMES PER DAY NEEDED active Not Available Not Available No t Available nicotine 14 mg/24 hr daily transderm al patch Apply 1 patch every day by transder mal route for 14 days. 12/293 completed Not Available Not Available Not Available cetirizin e 10 mg tablet TAKE 1 TABLET BY MOUTH DAILY NEEDED 02/09 completed Not Available Not Available Not Available azithromy hemal 250 mg tablet TAKE 2 TABLETS BY MOUTH TODAY, THEN TAKE 1 TABLET DAILY FOR 4 DAYS 08/13 completed Not Available Not Available Not Available aspirin 325 mg tablet Take 1 tablet every day by oral route as needed. 12/25 completed Not Available Not Available Not Available ibuprofen 800 mg tablet TAKE 1 TABLET BY MOUTH THREE TIMES DAILY NEEDED 08/13 completed Not Available Not Available Not Available acetazola mide ER 500 mg capsule,e xtended release TAKE 1 CAPSULE BY MOUTH TWICE DAILY 06/01 completed Not Available Not Available Not Available ofloxacin 0.3 % eye drops INSTILL 1 DROP IN RIGHT EYE FOUR TIMES DAILY FOR 1 WEEK 06/01 completed Not Available Not Available Not Available citalopra m 10 mg tablet TAKE 1 TABLET BY MOUTH EVERY DAY active Not Available Not Available No t Available sumatript an 100 mg tablet 1 Tablet PO PRN may repeat after 1 hour max of 2 tablets in 24 hours. 2018 active Not Available Not Available Not Avai lable hydrocodo ne 5 mg-acetam inophen 325 mg tablet Take 1 tablet every day by oral route as needed. active Not Available Not Available No t Available lisinopri l 20 mg tablet TAKE 1 TABLET BY MOUTH EVERY DAY active Not Available Not Available No t Available triazolam 0.125 mg tablet TAKE 1 TABLET BY MOUTH EVERY DAY NEEDED 07/06 completed Not Available Not Available Not Available diphenoxy late-atro pine 2.5 mg-0.025 mg tablet TAKE 2 TABLETS BY MOUTH 4 TIMES A DAY NEEDED FOR 5 DAYS FOR DIARRHEA . 04/11 completed Not Available Not Available Not Available acetamino phen 300 mg-codein e 30 mg tablet TAKE 1 TABLET BY MOUTH EVERY DAY NEEDED (MUST LAST 90 DAYS) active Not Available Not Available No t Available sulfameth oxazole 800 mg-trimet hoprim 160 mg tablet Take 1 tablet every 12 hours by oral route for 3 days. 2015 active Not Available Not Available Not Avai lable aspirin 81 mg tablet,de layed release Take 1 tablet every day by oral route. 03/26 completed Not Available Not Available Not Available tramadol 50 mg tablet TAKE ONE TO TWO TABLETS BY MOUTH TWICE DAILY NEEDED ONLY WITH ACETAMIN OPHEN 1000MG active Not Available Not Available No t Available simvastat in 40 mg tablet Take 1 tablet 3 times a week by oral route. 10/20 completed Not Available Not Available Not Available pantopraz ole 20 mg tablet,de layed release TAKE 1 TABLET BY MOUTH EVERY DAY BEFORE A MEAL 2022 active NEEDED Not Available Not Available Not Available Imitrex 50 mg tablet Take 1 1 by oral route. 07/24 completed Not Available Not Available Not Available Fluticaso ne Propionat e (Inhal) 50 mcg/BLIST inhl powd EACH NOSTRIL DAILY NEEDED 2011 active Not Available Not Available Not Avai lable estradiol 0.025 mg/24 hr weekly transderm al patch active RECORDED 02/16/19 13 2:03PM BY DANNY KENNEY ON/MONI DOUGLAS; Not Available Not Available Not Available dexametha sone 1 mg tablet Take 1 mg by oral route. 07/24 completed Not Available Not Available Not Available cephalexi n 500 mg capsule TAKE 1 CAPSULE BY MOUTH THREE TIMES A DAY FOR 7 DAYS 07/05 completed Not Available Not Available Not Available lisinopri l 10 mg tablet TAKE 1 TABLET BY MOUTH EVERY DAY 11/26 completed Not Available Not Available Not Available lidocaine 5 % topical patch active Not Available Not Available Not Available nicotine 21 mg/24 hr daily transderm al patch APPLY 1 PATCH DAILY FOR 6 WEEKS 12/29 completed Not Available Not Available Not Available gabapenti n 300 mg capsule TAKE 1 CAPSULE BY MOUTH THREE TIMES DAILY 06/01 completed Not Available Not Available Not Available aspirin 81 mg chewable tablet 03/26 completed Not Available Not Available Not Available codeine 10 mg-guaife nesin 100 mg/5 mL oral liquid TAKE 10 ML BY MOUTH EVERY 6 HOURS NEEDED FOR 6 DAYS. active Not Available Not Available No t Available aspirin 81 mg tablet 1 1 by oral route. 07/06 completed Not Available Not Available Not Available lisinopri l 5 mg tablet 5 mg by oral route. 09/25 completed Not Available Not Available Not Available zolpidem 5 mg tablet TAKE 1 TABLET BY MOUTH EVERY DAY NEEDED 2024 active Not Available Not Available Not Avai lable Halcion 0.25 mg tablet Take 1 1 by oral route. 07/24 completed Not Available Not Available Not Available lorazepam 1 mg tablet Take 1 tablet every day by oral route as needed. 07/24 completed Not Available Not Available Not Available Nasonex 50 mcg/actua tion [place] 2 sprays every day by intranas al route. 11/06 completed Not Available Not Available Not Available levofloxa hemal 500 mg tablet DAILY 02/26 completed RECORDED 03/01/19 12 3:58PM BY KYLE WHIPPLE ON AUTO-PIPE CTIVATIO N; Not Available Not Available Not Available hydrocodo ne 10 mg-chlorp heniramin e 8 mg/5 mL oral susp extend.re l 12hr SHAKE LIQUID AND TAKE 5 ML BY MOUTH TWICE DAILY NEEDED 11/19 completed Not Available Not Available Not Available losartan 50 mg-hydroc hlorothia zide 12.5 mg tablet TAKE 1 TABLET EVERY DAY BY MOUTH FOR HTN 03/02 completed GI upset Not Available Not Available Not Available fluticaso ne propionat e 50 mcg/actua tion nasal spray,lito pension 2 SPRAYS IN EACH NOSTRIL DAILY. active Not Available Not Available No t Available doxycycli ne hyclate 100 mg tablet Take 2 tables DADA x 1 dose by mouth 11/01 completed Not Available Not Available Not Available ramipril 5 mg capsule TAKE 1 CAPSULE BY MOUTH EVERY DAY FOR HIGH BLOOD PRESSURE 2024 active Not Available Not Available Not Avai lable loratadin e 10 mg tablet TAKE 1 TABLET BY MOUTH DAILY active Not Available Not Available No t Available naproxen 500 mg tablet Take 1 tablet every 12 hours by oral route for 90 days. 12/18 completed Not Available Not Available Not Available amoxicill in 875 mg-potass ium clavulana te 125 mg tablet TAKE 1 TABLET BY MOUTH TWICE A DAY FOR 7 DAYS 01/02 completed Not Available Not Available Not Available Vitamin D3 25 mcg (1,000 unit) tablet Take 1 tablet every day by oral route. [address] Lorelei Pereyra Not Available Not Available Not Available codeine-g uaifenesi n oral syrup Q 8 HRS PRN COUGH 2023 active RECORDED 06/14/19 12 10:51AM BY CANDACE STALEY MD, ANNOTATI ON/ADDEN DUM; Not Available Not Available Not Available rosuvasta tin 20 mg tablet TAKE 1 TABLET BY MOUTH EVERYDAY AT BEDTIME 2024 active Not Available Not Available Not Avai lable Prilosec OTC 20 mg tablet,de layed release active RECORDED 06/14/19 12 10:51AM BY CANDACE STALEY MD, ANNOTATI ON/ADDEN DUM; Not Available Not Available Not Available Tricor 145 mg tablet Take 1 tablet every day by oral route for 90 days. 2014 active Not Available Not Available Not Avai labbambi bromfenac 0.09 % eye drops INSTILL 1 DROP BOTH EYES EVERY DAY AFTER SURGERY FOR 6 WEEKS 06/01 completed Not Available Not Available Not Available hydrocodo ne-chlorp heniramin e Take 1 teaspoon (5 mL) po at bedtime, prn cough 05/02 completed Not Available Not Available Not Available Vicodin 07/24 completed Not Available Not Available Not Available Halcion active RECORDED 03/08/19 14 10:02AM BY MARIAH CORTEZ I, OFFICE VISIT; Not Available Not Available Not Available varenicli ne tartrate 1 mg tablet TAKE 1 TABLET BY MOUTH TWICE DAILY FOR 77 DAYS 12/28 completed Not Available Not Available Not Available varenicli ne tartrate 0.5 mg tablet TAKE 1 TABLET DAILY FOR 3 DAYS THEN 1 TABLET TWICE DAILY FOR 4 DAYS THEN CHANGE TO 1 MG TABLET 06/01 completed Not Available Not Available Not Available varenicli ne tartrate 0.5 mg (11)-1 mg (42) tablets in a dose pack TAKE DIRECTED PER PACKAGIN G 05/27 completed Not Available Not Available Not Available olopatadi ne 0.2 % eye drops DAILY IN AFFECTED EYES 2011 active Not Available Not Available Not Avai lable Benefiber active RECORDED 03/08/19 14 10:02AM BY MARIAH CORTEZ I, OFFICE VISIT; Not Available Not Available Not Available Benefiber Sugar Free (dextrin) active Not Available Not Available No t Available B comp 3-folic acid 1 mg-C 60 mg-biotin 300 mcg-zinc ox 12.5 mg tablet Take 1 tablet every day by oral route as needed. active Not Available Not Available No t Available blood pressure test kit-large cuff active Not Available Not Available Not Available B12 active Not Available Not Availa ble Not Available naproxen sodium 220 mg capsule 10/20 completed Not Available Not Available Not Available Pataday Twice Daily Relief 0.1 % eye drops INSTILL 1 DROP INTO AFFECTED EYE(S) BY OPHTHALM IC ROUTE 2 TIMES PER DAY AT AN INTERVAL OF 6 TO 8 HOURS 08/13 completed Not Available Not Available Not Available Clenpiq 10 mg-3.5 gram-12 gram/175 mL oral solution TAKE DIRECTED ACCORDIN G TO OFFICE INSTRUCT IONS 07/05 completed Not Available Not Available Not Available Vitals Date Recorded Body height Body mass index (BMI) Body weight Heart rate Oxygen saturation Oxygen saturation in Arterial blood by Pulse oximetry Body temperature Systolic blood pressure Diastolic blood pressure Provider Name and Address Organization Details Last Updated DateTime 3 154.31 cm 32.4 kg/m2 88251.7 g 84 /min 96 % 96 % 98.2 [degF] 144 mm[Hg] 79 mm[Hg] Nikki Beavers [facility] 3 13:03:54 Date Recorded Body height Body mass index (BMI) Body weight Heart rate Oxygen saturation Oxygen saturation in Arterial blood by Pulse oximetry Body temperature Systolic blood pressure Diastolic blood pressure Provider Name and Address Organization Details Last Updated DateTime 3 154.31 cm 32.6 kg/m2 07715.4 g 108 /min 96 % 96 % 97.7 [degF] 133 mm[Hg] 80 mm[Hg] Elisha Khanna LPN [facility] 3 14:58:39 Date Recorded Heart rate Systolic blood pressure Diastolic blood pressure Provider Name and Address Organization Details Last Updated DateTime 02/28/2023 94 /min 120 mm[Hg] 66 mm[Hg] Elisha Khanna LPN [facility] 03/02/2023 11:24:18 Date Recorded Heart rate Heart rate Systolic blood pressure Diastolic blood pressure Systolic blood pressure Diastolic blood pressure Provider Name and Address Organization Details Last Updated DateTime 4 87 /min 84 /min 133 mm[Hg] 86 mm[Hg] 118 mm[Hg] 77 mm[Hg] Elisha Khanna LPN [facility] 4 11:24:51 Date Recorded Heart rate Systolic blood pressure Diastolic blood pressure Provider Name and Address Organization Details Last Updated DateTime 03/02/2023 90 /min 126 mm[Hg] 74 mm[Hg] Elisha Khanna [facility] 03/02/2023 11:25:07 Date Recorded Body height Body mass index (BMI) Body weight Heart rate Oxygen saturation Oxygen saturation in Arterial blood by Pulse oximetry Body temperature Systolic blood pressure Diastolic blood pressure Provider Name and Address Organization Details Last Updated DateTime 4 154.31 cm 32.4 kg/m2 40083.7 g 99 /min 97 % 97 % 97.7 [degF] 157 mm[Hg] 82 mm[Hg] Nikki Beavers MA [facility] 4 10:42:33 Date Recorded Body height Body mass index (BMI) Body weight Heart rate Oxygen saturation Oxygen saturation in Arterial blood by Pulse oximetry Body temperature Systolic blood pressure Diastolic blood pressure Provider Name and Address Organization Details Last Updated DateTime 4 154.31 cm 32.6 kg/m2 57855.3 g 87 /min 97 % 97 % 98.1 [degF] 161 mm[Hg] 92 mm[Hg] Nikki Beavers MA [facility] 4 12:56:22 Date Recorded Body height Body mass index (BMI) Body weight Heart rate Oxygen saturation Oxygen saturation in Arterial blood by Pulse oximetry Body temperature Systolic blood pressure Diastolic blood pressure Provider Name and Address Organization Details Last Updated DateTime 4 154.31 cm 13.1 kg/m2 94013.8 7 g 104 /min 96 % 96 % 97.4 [degF] 165 mm[Hg] 79 mm[Hg] Nikki Beavers MA [facility] 4 12:59:07 Social History Question Answer Notes LastModified by Organizat ion Details LastModified Time Tobacco Smoking Status Current Every Day Smoker has used Chantix Not Available [facility] 12/18/2019 03:36:34 Do You Have An Advance Directive? Yes [email or web address] Information not available 12/28/2021 What Is Your Level Of Alcohol Consumption? Occasional [id number] Information not available 12/18/2019 Is Blood Transfusion Acceptable In An Emergency? Yes [id number] Information not available 12/18/2019 What Is Your Level Of Caffeine Consumption? Moderate 2-3 Cups [place] Daily Information not available 12/28/2021 How Much Tobacco Do You Chew? None [id number] Information not available 12/18/2019 Are You Currently Employed? No Retired [id number] Information not available 12/18/2019 What Type Of Diet Are You Following? REGULAR [id number] Information not available 12/18/2019 Which Illicit Or Recreational Drugs Have You Used? None [id number] Information not available 12/18/2019 Do You Or Have You Ever Used E-cigarettes Or Vape? 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 With Others (in 1999) [email or web address] Information not available 12/28/2021 Do You Take Precautions To Prevent Distracted Driving? Yes Information not available 09/26/2014 How Often Do You Need To Have Someone Help You When You Read Instructions, Pamphlets, Or Other Written Material From Your Doctor Or Pharmacy? Never Information not available 09/26/2014 Have You Served In The ? No [email or web address] Information not available 03/26/2016 Have You Or Anyone In Your Household Had Any Of The Following Symptoms In The Last 14 Days: Sore Throat, Cough, Chills, Body Aches For Unknown Reasons, Shortness Of Breath For Unknown Reasons, Loss Of Smell, Loss Of Taste, Fever At Or Greater Than 100 Degrees Fahrenheit? No [email or web address] Information not available 11/21/2019 Are You Or Anyone In Your Household A Health Care Provider Or Emergency Responder? No [email or web address] Information not available 11/21/2019 To The Best Of Your Knowledge Have You Been In Close Proximity To Any Individual Who Tested Positive For COVID-19? No Information not available 11/21/2019 What Was The Date Of Your Most Recent Tobacco Screening? 01/03/2024 [email or web address] Information not available 01/03/2024 How Many Children Do You Have? 2 Son And Daughter (Vanessa) [id number] Information not available 12/18/2019 Seat Belts Used Routinely Yes Information not available 12/28/2021 Are You Sexually Active? No [id number] Information not available 12/18/2019 Smoke Alarm In Home Yes [email or web address] Information not available 12/28/2021 At What Age Did You Start Smoking Tobacco? 18 [id number] Information not available 12/18/2019 Are You Passively Exposed To Smoke? Yes [email or web address] Information not available 09/26/2014 Do You Or Have You Ever Used Smokeless Tobacco? Never Used Smokeless Tobacco [email or web address] Information not available 12/20/2019 How Much Tobacco Do You Smoke? 1 PPD [email or web address] Information not available 08/13/2022 Do You Use Sunscreen Routinely? No [id number] Information not available 12/18/2019 How Many Years Have You Smoked Tobacco? 58 [id number] Information not available 12/18/2019 Sex: Unknown Functional Status Question Answer Note LastModified by Organization D etails LastModified Time Are you able to walk? [email or web address] Information not available 12/28/2021 Are you able to care for yourself? Yes [id number] Information not available 12/18/2019 What is your exercise level? Moderate golf [id number] Information not available 12/18/2019 Mental Status None recorded. Family History Relationship Description Onset Age of this Age Resolved Age Notes LastModified by Organization Details LastModified Time Father Malignant tumor of lung 89 [email or web address] Not available 10:30:02 Maternal Uncle Malignant neoplastic disease [email or web address] Not available 12/28 13:37:29 Sister Hyperlipidem ia [email or web address] Not available 12/28 13:37:29 Sister Hypertensive disorder [email or web address] Not available 2015 11:00:05 Mother Depressive disorder 66 [email or web address] Not available 10:30:02 Medical History No medical history recorded. Gynecological History Statement/Question Response Date of Last Pap Smear 06/14/2013 Date of Last Colonoscopy 09/18/2018 Most Recent Mammogram 11/30/2023 Most Recent Bone Density 06/30/2021 Obstetrics History GPAL:G 0 P 0 0 0 0 Immunizations Vaccine Type Date Status Note Provider Nam e and Address Organization Details Recorded Time Influenza, split virus, trivalent, preservative [address] [facility] 07/25/2019 14:36:02 Pneumococcal conjugate PCV 13 5 completed Not Available [facility] 03/03/2019 02:21:36 COVID-19, mRNA, LNP-S, PF, 30 mcg/0.3 mL dose [facility] 15:04:35 COVID-19, mRNA, LNP-S, PF, 30 mcg/0.3 mL dose [facility]/18[facility]2021 15:04:35 Novel [id number], preservative-free [address] [facility] 03/18/2021 15:04:35 Influenza, split virus, trivalent, preservative [address] [facility] 03/18/2021 15:04:35 Influenza, split virus, trivalent, preservative [address] [facility] 03/18/2021 15:04:35 Influenza, split virus, trivalent, preservative [address] [facility] 03/18/2021 15:04:35 Influenza, split virus, trivalent, preservative 7 completed NILDA Gupta, [facility] 03/18/2021 15:04:35 COVID-19, mRNA, LNP-S, PF, 30 mcg/0.3 mL dose 1 [facility]/18[facility]2021 15:04:35 Influenza, split virus, trivalent, preservative 5 [facility]21 13:28:07 Influenza, high-dose, quadrivalent, PF 2 [facility] 12/28/2021 13:49:24 COVID-19, mRNA, LNP-S, bivalent, PF, 30 mcg/0.3 mL dose 2 completed NILDA Gupta, [facility] 12/28/2021 13:49:24 COVID-19, mRNA, LNP-S, PF, bar-sucrose, 30 mcg/0.3 mL 3 completed NOHEMY Mccann, [facility] 02/09/2023 14:59:02 Influenza, high-dose, trivalent, PF 6 completed Not Available [facility] 03/03/2019 02:22:03 Influenza, high-dose, trivalent, PF 7 completed Not Available [facility] 03/03/2019 02:22:21 pneumococcal polysaccharide PPV23 [address] [facility] 03/18/2021 15:04:35 Td (adult), 2 Lf tetanus toxoid, preservative free, adsorbed [address] [facility] 06/01/2021 13:28:07 Influenza, split virus, trivalent, preservative 2 completed Loretta lindo, [facility] 07/25/2019 14:36:02 Tdap 3 completed Loretta Ward null, [facility] 07/25/2019 14:36:02 Influenza, split virus, trivalent, preservative 3 completed Loretta Ward null, [facility] 07/25/2019 14:36:02 Influenza, high-dose, trivalent, PF 8 completed Not Available [facility] 03/03/2019 02:22:14 Influenza, high-dose, trivalent, PF 9 completed Not Available [facility] 03/03/2019 02:22:09 Influenza, high-dose, quadrivalent, PF 0 completed Candace Owens MD [address], [address], [facility] 11/21/2019 14:49:12 Influenza, high-dose, quadrivalent, PF 1 completed Aisha Miles MA null, [facility] 11/26/2020 14:59:14 Td (adult), 2 Lf tetanus toxoid, preservative free, adsorbed 2 completed Candace Owens MD [address], [address], [facility] 12/29/2021 09:10:21 Influenza, high-dose, quadrivalent, PF 3 completed Candace Owens MD [address], [address], [facility] 12/30/2022 08:35:20 Past Encounters Encounter ID Performer Location Encounter Start Date Encounter Closed Date Diagnosis/Indication Diagnosis SNOMED-CT Code Diagnosis ICD10 Code Diagnosis Note [id number] Candace Owens MD Main Office [address] [address] 09/05/2013 10:02:42 09/05/2013 11:45:20 Adult health examination [id number] Essential hypertension 25028258 Pure hypercholesterolemia 477679977 level running high since she stopped her meds; she will restart and we will recheck level in 3-6 months Major depr essive disorder [id number] we will refer her for counseling [id number] [place] [address] 03/16/2010 00:00:00 [id number] [employer] [address] [facility],[address] [place] [address] 06/22/2010 00:00:00 [id number] [employer] [address] [facility],[address] [place] [address] 07/30/2010 00:00:00 [id number] [employer] [address] [facility],[address] [place] [address] 10/30/2010 00:00:00 [id number] [employer] [address] [facility],[address] [place] [address] 12/01/2010 00:00:00 [id number] [employer] [address] [facility],[address] [place] [address] 02/16/2011 00:00:00 [id number] [employer] [address] [facility],[address] [place] [address] 02/18/2011 00:00:00 [id number] [employer] [address] [facility],[address] [place] [address] 03/04/2011 00:00:00 [id number] [employer]ce [address] [facility],[address] [place] [address] 06/08/2011 00:00:00 [id number] [employer]ce [address] [facility],[address] [place] [address] 06/18/2011 00:00:00 [id number] [employer] [address] [facility],[address] [place] [address] 08/10/2011 00:00:00 [id number] [employer] [address] [facility],[address] [place], N[place] [address] 10/07/2011 00:00:00 [id number] [employer] [address] [facility],[address] [place], [place] [address] 01/11/2012 00:00:00 [id number] [employer] lemuele [address] [facility],[address] [place], [place] [address] 02/17/2012 00:00:00 [id number] [employer] laxmi [address] [place] [address],[address] [place], [place] [address] 09/04/2012 00:00:00 [id number] [employer] laxmi [address] [place] [address],[address] [place], [place] [address] 03/08/2013 00:00:00 [id number] Mariah Kcregina Main Office [address] [place] [address] [place] [address] 03/27/2014 15:12:43 03/27/2014 16:11:40 Essential hypertension 95598309 Pure hypercholesterolemia 263103566 unable to tolerate statins. We will try tricor and she will recheck her lipids in 3 months. Allergic rhinitis 35707179 she will take an OTC antihistam ine and use Flonase on a regular basis (at least for two weeks) to see if that helps with her symptoms. Cough 64960265 possibly from her ACEI but she does not want to stop. The cough is more likely coming from smoking and PND. [id number] Candace Owens MD Main Office [address] [place] [address] [place] [address] 09/04/2014 14:16:23 09/04/2014 14:59:05 Cough 26352778 Sx x 3 weeks, Instructed to STOP augmentin, and take full course of zpak, she should take full course of all antibiotic s in order to prevent recurrence and /or resistant bacteria. Symptomati c treatment- lots of fluids, rest, tea with honey, OTC cough drops/ cough med as needed, humidifier as needed [id number] Main Office [address] [place] [address] [place] [address] 09/26/2014 10:39:22 09/26/2014 12:08:37 Adult health examination 426000782 Administra tion of pneumococcal vaccine 58262479 Tobacco de pendence syndrome 77960259 Diarrhea 64355759 Pure hypercholesterolemia 973355581 unable to tolerate statins. We will try tricor and she will recheck her lipids in 3 months. Contusion of toenail [id number] Candace Owens MD Main Office [address] [address] [place] [address] 04/03/2015 15:00:17 04/03/2015 16:15:54 Essential hypertension 46373342 I10 good control with current mgmt. Major depr essive disorder 867158904 F33.9 currently in remission Pure hypercholesterolemia 294675087 E78.0 She will go back on the [employer] n and we will check her labs again at he next visit. Gastroesop hageal reflux disease 286999948 K21.9 Allergic conjunctivitis 012505507 H10.13 Insomnia 863158701 G47.0 0 Neck pain 93435759 M54.2 [id number] Candace Owens MD Main Office [address] [address] [place] [address] 05/27/2015 10:42:10 05/27/2015 11:33:52 Dysuria 33083495 R30.0 we will treat this as a UTI but if her symptoms persist we will get a CT scan to r/o stones or diverticul tis both of which are less likely since her pain is bilateral. It is also possible that this is muscular since she has recently increased her activity level. Increased frequency of urination 874326433 R35.0 [id number] [facility] Main Office [address] [address] [place] [address] 06/06/2015 10:24:23 06/06/2015 11:46:44 Anterior knee pain 225020072 M25.569 [id number] Candace Owens MD Main Office [address] [address] [place] [address] 10/21/2015 10:45:09 10/21/2015 12:24:45 Essential hypertension 38985765 I10 good control with current mgmt. Anterior knee pain 82609 3006 M25.562 followed by [facility] and receives injections which help. Also got help from a 6-week course of PT and tramadol. Osteoarthritis 939818914 M19.[address] Hartley; her main problem is left hip pain and LBP. Adult heal th examination 512276940 Z00.00 She is UTD with her immunizati ons; has back, neck and left hip pain which are intermitte nt and helped with tramadol. At [facility] ed risk for falls 412853700 Z91.81 Advance di rective discussed with patient 649516418 Z71.89 Hearing loss 06813601 H9 1.93 Neck pain 02308565 M54.2 Low back pain 718144305 M54.5 Migraine 72892393 G43.90 [id number] Candace Owens MD Main Office [address] [facility] [address] [place] [address] 03/26/2016 13:27:48 03/26/2016 15:24:33 Neck pain 85206682 M54.2 She is followed by Dr Hartley and will also be making an appointmen t with Dr Mariano at [facility]. Allergic rhinitis 933328 04 J30.9 Flonase and a decongesta nt were not helpful. She gets a little help from singulair. Will try a different nasal spray and she will make an appointmen t with an transportation dispatcher if she is not improving. Much of her lack of response is because she is a smoker. Low back pain 047793699 M54.5 Chest pain 54597710 R07. 9 She is a smoker and has high cholestero l and HTN. High risk for heart disease. [id number] Candace Owens MD Main Office [address] [facility] [address] [place] [address] 10/26/2016 13:27:57 10/26/2016 15:01:59 Adult health examination 540591065 Z00.00 She is UTD with her immunizati ons; has back, neck and left hip pain which are intermitte nt and helped with tramadol. Due for a colonoscop y in 2019 Influenza vaccine needed 1113452181 106 Z23 Screening for malignant neoplasm of lung 214504431 Z12.2 Pure hypercholesterolemia 154695130 E78.00 unable to tolerate statins. Cramp in l ower leg associated with rest 761637911 G47.62 Advised hydration and stretching before bed. Neck pain 20770815 M54.2 She is followed by Dr Hartley and has also been seen by Dr Mariano at [facility]. [id number] Candace Owens MD Main Office [address] [facility] [address] [place] [address] 01/19/2017 13:54:55 01/19/2017 15:19:19 Cramp in lower limb 112688474 R25.2 This is probably idiopathic but she is concerned that something serious may be wrong because of the persistenc e and the lack of a sustained response to various treatments . I encouraged quitting smoking and doing regular stretching exercises. Spinal stenosis is an unlikely etiology since she golfs regularly and has no problems with walking. Claudication 899965887 I 73.9 Possibly secondary to her smoking. Low back pain 401751913 M54.5 [id number] Candace Owens MD Main Office [address] [place] [address] 05/02/2017 14:54:30 05/02/2017 16:19:43 Essential hypertension 14751058 I10 Running a little high. No changes at this time. Migraine 64652081 G43.90 9 Acute sinusitis 52628590 J01.90 Hyperlipidemia 55766203 E78.5 Cramp in lower limb 4499 23474 R25.2 Helped with vitamin B12. [id number] Candace Owens MD Main Office [address] [place] [address] 06/02/2017 14:36:30 06/02/2017 15:35:10 Pain in lower limb 45023189 M79.661 Unclear etiology for her right leg pain. Seen by vascular and had normal studies. Gets pain when golfing. Neck pain 57827277 M54.2 Degenerati ve changes in cervical spine. Seen last year and had injections which helped but pain has returned. Anterior t ibial stress syndrome 888610525 S86.891A right sided. [id number] Candace Owens MD Main Office [address] [place] [address] [place] [address] 11/01/2017 09:54:08 11/01/2017 11:22:02 Adult health examination 128215970 Z00.00 She is UTD with her immunizati ons (except due for a flu); has back, neck and left hip pain which are intermitte nt and helped with tramadol. Due for a colonoscop y in 2018 Influenza vaccine needed 3590554672 106 Z23 Neck pain 60100038 M54.2 Degenerati ve changes in cervical spine. has had injections and PT in the past. Essential hypertension 54315044 I10 Running a little high. No changes at this time. Insomnia G47.0 0 Cough 27608156 R05 possibly from her ACEI but she does not want to stop. The cough is more likely coming from smoking and PND. [id number] Candace Owens MD Main Office [address] [facility] [address] [place] [address] 05/02/2018 10:00:50 05/02/2018 11:15:29 Essential hypertension 65313873 I10 A little high but acceptable . No changes. Neck pain 02213733 M54.2 Degenerati ve changes in cervical spine. has had injections and PT in the past. Cough 35487484 R05 Probably from smoking and PND. May also have COPD given her smoking hx. Insomnia G47.0 0 Acute sinusitis 98362962 J01.90 Pain in le ft lower limb 170413048 M79.605 Left groin pain secondary to labral tear. Seen by Dr Montalvo at [facility]. [id number] Candace Owens MD Main Office [address] [facility] [address] [place] [address] 07/19/2018 09:45:19 07/19/2018 11:25:01 Neck pain 64293028 M54.2 Degenerati ve changes in cervical spine. has had injections and PT in the past. Not a surgical problem. Screening for malignant neoplasm of colon 998015516 Z12.11 Inguinal pain 015092062 R10.2 This has been chronic over the last 8 years. Seen by physiatry and [facility]. [facility] recommends an U/S to r/o a hernia as well as an injection and will see her back if the pain persists. Insomnia G47.0 0 She is looking for halcion for sleep but I told her that it was no longer appropriat e to be taking this buttermaker continuous churn because of potential SE's. I offered a sleep medicine referral but she declined. Essential hypertension 49388736 I10 High today but she does not want to make changes. She will follow her BP and call if it remains above 140 systolic. [id number] Candace Owens MD Main Office [address] [place] [address] 09/20/2018 12:34:15 09/20/2018 13:43:07 Insomnia 187736923 G47.00 She is looking for halcion for sleep but I told her that it was no longer appropriat e to be taking this buttermaker continuous churn because of potential SE's. She will try a low-dose ambien instead. Pain in le ft lower limb 279658902 M79.[address] Montalvo at [facility] with whom I also spoke. He feels that the problem is in her lumbar spine. He will also do vascular studies since the symptoms come on with exercise and resolve with rest and she is a lifetime smoker. Essential hypertension 82330186 I10 High today but she does not want to make changes. She will follow her BP and call if it remains above 140 systolic. Gastroesop hageal reflux disease 909058629 K21.9 [id number] Candace Owens MD Main Office [address] [address] 11/06/2018 10:06:05 11/06/2018 11:21:19 Adult health examination 113109656 Z00.00 She is UTD with her immunizati ons (except due for a flu); has back, neck and left hip pain which are intermitte nt and helped with tramadol. Due for a colonoscop y in 2019 Cough 50837338 R05 Probably from smoking and PND. May also have COPD given her smoking hx. Anxiety 36731387 F41.9 Neck pain 07121731 M54.2 Degenerati ve changes in cervical spine. has had injections and PT in the past. Not a surgical problem. Influenza vaccine needed 4345068322 106 Z23 Allergic conjunctivitis 364667973 H10.13 Major depr essive disorder 677667334 F32.0 Tobacco de pendence syndrome 37176795 F17.200 [id number] Candace Owens MD Main Office [address] [address] 12/04/2018 10:16:33 12/04/2018 11:47:32 Major depressive disorder 204804417 F32.0 She will pickle pumper the celexa and start dada. Tight chest 24955355 R07 .89 This occurs at rest but not with activity. Had a normal ETT a couple of years ago. Will repeat if her symptoms persist or they start occuring with activity. [id number] Candace Owens MD Main Office [address] [address] 12/25/2018 08:57:09 12/25/2018 10:08:40 Major depressive disorder 804029465 F32.0 She is taking celexa prn and states that it works well for her this way. This may be a placebo effect. I explained to her that it's not a prn med and that to work well she should be taking it daily. It is unlikely that she will do this. Allergic conjunctivitis 949600067 H10.13 Gastroesop hageal reflux disease 301575382 K21.9 Only uses this med prn and not very often. [id number] Candace Owens MD Main Office [address] [place] [address], [place] [address] 07/25/2019 13:23:44 07/25/2019 15:57:28 Essential hypertension 41200407 I10 High today but she does not want to make changes. She will follow her BP and call if it remains above 140 systolic. Allergic conjunctivitis 917516910 H10.13 Hyperlipidemia 66229981 E78.5 Major depr essive disorder 481025396 F32.0 She is taking celexa prn and states that it works well for her this way. This may be a placebo effect. I explained to her that it's not a prn med and that to work well she should be taking it daily. It is unlikely that she will do this. Nasal congestion 3430701 0 R09.81 Chronic cough 21164847 R 05 This is probably from smoking. We will no longer be prescribin g codeine cough syrup. [id number] Candace Owens MD Main Office [address] [facility] [address] [place] [address] 11/21/2019 13:34:34 11/21/2019 14:58:50 Adult health examination 306618068 Z00.00 She is UTD with her immunizati ons (except due for a flu); has back, neck and left hip pain which are intermitte nt and helped with tramadol and an occasional tylenol w/codeine. Had a colonoscop y September 2018. Influenza vaccine needed 2006316010 106 Z23 Insomnia 467589847 G47.0 0 Hyperlipidemia 43939412 E78.5 Cough 40286456 R05 Probably from smoking and PND. May also have COPD given her smoking hx. Allergic rhinitis 034947 04 J30.9 Flonase and a decongesta nt were not helpful. She gets a little help from singulair. Will try a different nasal spray and she will make an appointmen t with an transportation dispatcher if she is not improving. Much of her lack of response is because she is a smoker. Essential hypertension 55769707 I10 Has been running high. We will increase her lisinopril from 10 to 20 mg and recheck in 1 month. 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 has had injections and PT in the past. Not a surgical problem. Benign varun plasm of adrenal gland 49107309 D35.[address] Givens [id number] Candace Owens MD Main Office [address] [facility] [address] [place] [address] 12/20/2019 13:19:52 12/20/2019 14:07:46 Essential hypertension 55291332 I10 We increased her lisinopril from to 10 to 20 mg with an improvemen t in her BP. Insomnia 563648283 G47.0 0 We will look into the reason she is having trouble filling her zolpidem script. [id number] Candace Owens MD Main Office [address] [facility] [address] [place] [address] 06/19/2020 09:53:17 06/19/2020 11:02:24 Essential hypertension 44079242 I10 We increased her lisinopril from to 10 to 20 mg with an improvemen t in her BP. Allergic rhinitis 184821 04 J30.9 On meds. This is a bad year for her. Continue current meds. Neck pain 42622307 M54.2 Degenerati ve changes in cervical spine. has had injections and PT in the past. Not a surgical problem. Cough 12314334 R05 Probably from smoking and PND. May also have COPD given her smoking hx. Insomnia 583592353 G47.0 0 Stable on low-dose zolpidem [id number] Netta Guerra MD Main Office [address] [facility] [address] [facility] [place] [address] 07/07/2020 10:39:36 07/07/2020 11:21:25 Pre-surgery evaluation 461136765 Z01.818 1. Pre-Surgic al Evaluation /Surgical Clearance for b/l cataracts surgery scheduled for 07/16/20 (Left eye), 08/06/20 (right) under topical anesthesia . -- Clinical cardiac predictor( s): tobacco dependence , HTN -- Surgical risk level: Low -- Functional Status: EXCELLENT -- Revised Cardiac Risk Index (RCRI) for Pre-Operat braeden Risk: 0 -- GONZALEZ Score: 0.2 % Risk of myocardial infarction or cardiac arrest, intraopera tively or up to 30 days post-op -- Vitals and previous labs reviewed -- Imaging: Not indicated -- EKG: Not indicated -- Labs not indicated -- Informed patient NPO at midnight -- Advised to avoid aspirin and NSAIDS -- Advised tobacco cessation -- Plan of care discussed with patient. -- Medical clearance: Stable to proceed for procedure. Patient is at low risk for cardiopulm onary complicati ons with planned procedure based on comorbidit ies, good exertional tolerance and overall procedure risk. Bilateral cataracts 9572 2003 H26.9 [id number] Candace Owens MD Main Office [address] [facility] [address] [facility] [place] [address] 11/26/2020 12:39:17 11/26/2020 14:04:44 Adult health examination 802583600 Z00.00 She is UTD with her immunizati ons (except due for a flu); has back, neck and left hip pain which are intermitte nt and helped with tramadol and an occasional tylenol w/codeine. Had a colonoscop y September 2018 due again in 2023. Influenza vaccine needed 8503141196 106 Z23 Skin lesion 13725932 L98 .9 Scaly lesion at left wrist. Essential hypertension 05172259 I10 Good control. Continue current mgmt. Gastroesop hageal reflux disease 968603741 K21.9 Only uses this med prn and not very often. Hyperlipidemia 40614309 E78.5 Stable on current meds. Insomnia 007709286 G47.0 0 Stable on low-dose zolpidem but her insurance will only cover a 90-day supply for the year. We put in a PA but this was denied. Major depr essive disorder 728327237 F32.0 She is taking celexa prn and states that it works well for her this way. This may be a placebo effect. I explained to her that it's not a prn med and that to work well she should be taking it daily. It is unlikely that she will do this. Benign varun plasm of adrenal gland 57304837 D35.[address] Givens who referred her back here. She is due for a f/u CT in 2022. 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 Discussed treatment with neurontin as well as SE's. [id number] Candace Owens MD Main Office [address] [facility] [address] [facility] [place] [address] 06/01/2021 12:47:38 06/02/2021 10:34:39 Essential hypertension 91479926 I10 BP mildly elevated but she did not take her meds today. She will monitor and call if it continues to run high. Allergic conjunctivitis 134793441 H10.13 Hyperlipidemia 14487697 E78.5 Stable on current meds. Major depr essive disorder 220546399 F32.0 She is taking celexa prn and states that it works well for her this way. This may be a placebo effect. I explained to her that it's not a prn med and that to work well she should be taking it daily. It is unlikely that she will do this. Anterior knee pain 99305 3006 M25.562 followed by [facility] and receives injections which help. [id number] Candace Owens MD Main Office [address] [facility] [address] [place] [address] 12/28/2021 13:36:45 12/28/2021 15:08:36 Adult health examination 285383026 Z00.00 She is UTD COVID, flu and pneumonia vaccines. She is due for a tetanus vaccine which she will receive today. Had a colonoscop y September 2018 due again in 2023. Acquired t heavy lift rigger finger 4095138 M65.30 Involving both index fingers. Requires a tetanus booster 049867382 Z23 Essential hypertension 41087521 I10 Good control; continue current mgmt. Hyperlipidemia 23087242 E78.5 Stable on current meds. Check fasting lipid level. Allergic rhinitis 053482 04 J30.9 On meds. This is a bad year for her. 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 - improved- pt advised to follow-up with her dentist Lightheadedness 34968356 8 R42 - chronic problem however has become more recurrent in the lasts month (2X)- EKG showed: sinus bradycardi a with PVCs, no QTC prolongati on> no PVCs noted on last EKG done in 06/2020- due the amount of PVCs noted and pt symptoms of dizziness ordered a holter monitor for further evaluation - after holter monitor will consider starting metoprolol vs work-up for BPPV however would like to first any cardiac etiology- RTC in 2 months for follow-up Acute sinusitis 25971914 J01.90 - differenti als: allergies vs infection- will try a course of azithromyc in to see if this improves pt symptoms- pt also adjusted some patient allergy medication s- will continue with supportive treatment as well- Tylenol OTC, not to exceed package insert for pain or fever q4-6h advised prn. Counselled on not exceeding more than 3g/day. - Saltwater gargle - Adequate hydration enforced - Saline sprays - Humidifier use enforced. Allergic conjunctivitis 051254835 H10.13 - pt has been complainin g of watery eyes, provided with azelastine dry drop Allergic rhinitis 417712 04 J30.9 - advised patient to switch from zyrtec to claritin as it may provide better relief- if no improvemen t pt was that she can switch back [id number] JIMBO VAUGHN MD Main Office [address] [facility] [address] [place] [address] 08/13/2022 10:36:49 08/13/2022 11:07:07 Lightheadedness 443202917 R42 - improved, chronic problem- EKG showed on 05/27/2022: sinus bradycardi a with PVCs, no QTC prolongati on> no PVCs noted on last EKG done in 06/2020- Holter monitor was normal- as holter monitor was normal and patient is no longer experienci ng symptoms, no further cardiology work-up needed. if symptoms re-occur will recommend vestibular therapy. Temporoman dibular joint disorder 09408476 M26.609 - still a problem for the patient, worse on the right side- pt advised to follow-up with her dentist Tobacco de pendence syndrome 80302136 F17.200 - pt today expresses that she would like to quit smoking- in the past tried chantex with little improvemen t- pt has a 64 pack year smoking history (1ppd for the last 64 years)- to help patient quit started pain on on patches: 21mg for 6 weeks, 14mg for 2 weeks and 7mg for 2 weeks Hyperlipidemia 13960734 E78.5 Z00.00 - ordered per request of patient [id number] Candace Owens MD Main Office [address] [place] [address] 12/29/2022 12:31:51 12/29/2022 14:03:00 Adult health examination 081755050 Z00.00 She is UTD COVID, flu and pneumonia vaccines. She is due for a tetanus vaccine which she will receive today. Had a colonoscop y September 2018 due again in 2023. Gastroesop hageal reflux disease 631447164 K21.9 Only uses this med prn and not very often. Influenza vaccine needed 5406111692 106 Z23 Essential hypertension 87770742 I10 We will stop her ACEI because of a dry cough. Hyperlipidemia 49137062 E78.5 Stable on current meds. Check fasting lipid level. Spinal yifan nosis of lumbar region 22762555 M48.061 Benign varun plasm of adrenal gland 09743279 D35.[address] Givens who referred her back here. She is due for a f/u CT. Major depr essive disorder 942903645 F32.0 She is taking celexa prn and states that it works well for her this way. This may be a placebo effect. I explained to her that it's not a prn med and that to work well she should be taking it daily. It is unlikely that she will do this. [id number] Candace Owens MD Main Office [address] [place] [address] 02/09/2023 14:21:06 02/09/2023 15:46:22 Essential hypertension 21413968 I10 Her cough resolved after stopping the ACEI and she is tolerating the SARB well with a BP under control. Spinal yifan nosis of lumbar region 18870027 M48.061 Gets relief from tylenol w/codeine. Low back pain 737722058 M54.51 Starting PT in a couple of weeks. Seeing Dr Montalvo again next month. [id number] STEFANIE NORIEGA Main Office [address] [place] [address] 03/17/2023 10:33:22 03/17/2023 11:10:01 Chronic diarrhea 180278763 K52.9 was seen at [facility] on 03/04/23 for symptoms of fecal incontinen ce; MRI completed and cauda equina was ruled out by neurosurge ry team-pt reports to still be experienci ng episodes of diarrhea since being discharged -has been taking benefiber and eating yogurt which pt notes to be providing relief and improvemen ts-is scheduled to f/u with neuro outpatient and her GI specialist -due for colonoscop y; last colonoscop y was in 2019 Spinal yifan nosis of lumbar region 00638947 M48.061 MRI completed at [facility] which revealed lumbar spine degenerati on, foraminal narrowing greatest at L3-L4, L4-L5 levels, severe spinal canal narrowing, crowding upon exiting L3 nerve roots, and L3-L4 moderate diffuse disc bulge-Was told by neurosurge ry team to consider surgical interventi on for chronic lumbar stenosis due to symptoms of neurogenic claudicati on; pt is set to f/u with neurology outpatient for further discussion [id number] Candace Owens MD Main Office [address] [place] [address] 07/06/2023 12:50:34 07/06/2023 13:30:26 Essential hypertension 79209400 I10 Her cough resolved after stopping the ACEI and she is tolerating the SARB well with a BP under control at home but is high when she is here in the office. She does not want to make any changes. Hyperlipidemia 66149079 E78.5 Stable on current meds. Gastroesop hageal reflux disease 889689200 K21.9 Only uses this med prn and not very often. Insomnia 224147011 G47.0 0 Stable on low-dose zolpidem but her insurance will only cover a 90-day supply for the year. We put in a PA but this was denied. Spinal yifan nosis of lumbar region 74307183 M48.061 Gets relief from tylenol w/codeine. She has had a recent exacerbati on and is going to have a procedure at [facility] by Dr Srivastava which sounds like a guided injection [id number] Candace Owens MD Main Office [address] [place] [address] 01/03/2024 12:50:26 01/03/2024 14:10:24 Adult health examination 769367974 Z00.00 She is UTD COVID, flu, tetanus and pneumonia vaccines.H ad a colonoscop y earlier this year and does not need any additional colonoscop ies.Had a mammogram last month. Tobacco de pendence syndrome 79615455 F17.200 We discussed quitting. Low back pain 323200686 M54.[address] Montalvo again next month. Insomnia 100217868 G47.0 0 Stable on low-dose zolpidem but her insurance will only cover a 90-day supply for the year. We put in a PA but this was denied. Hyperlipidemia 49942865 E78.5 Stable on current meds. Spinal yifan nosis of lumbar region 04211957 M48.061 Recently (December 2023) had an epidural by Dr Montalvo on right side which has helped especially with radiation pain. Exposure to lead 3660207 947 9115420 Z77.011 Cough 92978709 R05.9 . The cough is more likely coming from smoking and PND. Health Concerns Section Related Observation LastModified by Organization Detai ls LastModified Time None Recorded Concern Status LastModified by Organization Details LastModified Time None Recorded Advance Directives Directive Y: Payers Encounter Date Sequence Insurance Name Policy Number Policy Gabriel Covered Member ID Gabriel Member ID Guarantor Name 12/29/2022 1 [place] [employer] Danae F Soja [id number] Danae F Soja 12/29/2022 2 [place] 111 Danae F Soja [id number] Danae F Soja 02/09/2023 1 [place] [employer] Danae F Soja [id number] Danae F Soja 02/09/2023 2 [place] 111 Danae F Soja [id number] Danae F Soja 03/17/2023 1 [place] [employer] Danae F Soja [id number] Danae F Soja 03/17/2023 2 [place] 111 Danae F Soja [id number] Danae F Soja 07/06/2023 1 [place] [employer] Danae F Soja [id number] Danae F Soja 07/06/[address] [facility] 111 Danae Narayanan [id number] Danae Narayanan 01/03/2024 1 [place] [facility] Danae Narayanan [id number] Danae Narayanan 01/03/[address] [facility] 111 Danae Narayanan [id number] Danae Narayanan Notes Date Note Type Note Provider Name and Address Organization Details Recorded Time 3 text/html Medicare Annual Wellness VisitReported bypatient.Diet and Nutrition:healthy diet;diet is high in salt;high carbohydrate meals;low calcium intake Fracture Risk:no history of fractures; no recent explained fracture; no sudden unexplained fractures;previous musculoskeletal injuries(she has chronic neck pain) Physical Activity:good physical condition;does not exercise on a regular basis(sometimes golfs numerous times a week during) Depression Risk:never feels sad, empty, or tearful; no loss of interest in activities; no significant changes in weight; no sleep disturbances or insomnia; no agitation; no loss of energy; no feelings of worthlessness or guilt; no thoughts of suicide; no history of depression; no history of mood disorders Orientation:no disorientation to time; no disorientation to date; no disorientation to place Concentration and Memory:no decreased concentrating ability; no memory lapses or loss; does not forget words Speech/Motor difficulties:no speech difficulties; no difficulty expressing formulated concepts; no difficulty with fine manipulative tasks; no difficulty writing/copying; no slowed reaction time; does not knock things over when trying to pick them up Vision:no vision problems Activities of Daily Living:able to bathe with limited or no assistance; able to contol urination and bowels; able to dress with limited or no assistance; able to feed self with limited or no assistance; able to get out of chair or bed with limited or no assistance; able to groom with limited or no assistance; able to toilet with limited or no assistance Instrumental Activities of Daily Living:able to do house work with limited or no assistance; able to grocery shop with limited or no assistance; able to manage medications with limited or no assistance; able to manage money with limited or no assistance; able to prepare meals with limited or no assistance; able to use the phone with limited or no assistance Falls Risk Assessment:no frequent falls while walking; no fall in the past year; no fall since last visit; no dizziness/vertigo Her family problems have continued but are easier to deal with simply because time has passed and her expectations are lower. She has had limited contact with her son which is an improvement. Candace Owens MD [address], [phone], [facility] 12/30/2022 08:49:32 3 text/html Hypertension F/UReported bypatient.Associated Symptoms:no dizziness; no lightheadedness; no chest pain; no shortness of breath; no palpitations; no edema; no calf pain with exertion Lifestyle:regular exercise; limiting/avoiding salt Medications:taking medications as directed; no side effects from medication She has c/o intermittent and chronic pains involving her neck, her left shoulder and arm, and her left hip. She has seen specialists and has received injections in the past which have helped. She also takes codeine prn and we have been limiting her meds to avoid future problems. She is still able to play golf. She also has chronic back pain from spinal stenosis and is followed by Dr Montalvo at [facility]. He has recommended PT which she will be starting next week. Candace Owens MD [address], [phone], [facility] 02/10/2023 09:55:58 4 text/html Nikki is an 83yr old F who presents for chronic diarrhea x5 weeks. Was seen at [facility] on 03/04/23 for bowel incontinence. MRI was performed due to concerns for cauda equina given pt hx of spinal stenosis. Cauda equina was ruled out by the neurosurgery team and pt was recommended to f/u with neuro outpatient. Was told by neurosurgery team to consider surgical intervention for chronic lumbar stenosis due to symptoms of neurogenic claudication. Pt reports that she is having episodes of diarrhea since being discharged. Denies of any incontinence, blood, or pain with defecation. No abdominal pain. Notes that taking yogurt and benefiber provides improvements and lessens the frequency of episodes. Is scheduled to f/u with neuro outpatient, has GI appt for 04/2023. Pt is due for colonoscopy as last colonoscopy was 09/2018. Denies of saddle anesthesia, retention of urine, or repeat incontinence. STEFANIE NORIEGA [address] [facility] [address], [place], [phone], [facility] 03/20/2023 17:43:52 4 text/html HyperlipidemiaReported bypatient.Notes:Stable on meds and last LDL was at goal. Will recheck lipid level at next appointment.Hypertension F/UReported bypatient.Associated Symptoms:no dizziness; no lightheadedness; no chest pain; no shortness of breath; no palpitations; no edema; no calf pain with exertion Lifestyle:regular exercise; limiting/avoiding salt Medications:taking medications as directed; no side effects from medication She has c/o intermittent and chronic pains involving her neck, her left shoulder and arm, and her left hip. She has seen specialists and has received injections in the past which have helped. She also takes codeine prn and we have been limiting her meds to avoid future problems. She is still able to play golf. She also has chronic back pain from spinal stenosis and is followed by Dr Montalvo at [facility]. She recently had an exacerbation of her pain with radiation into her right leg. She was recently seen by Dr Montalvo at [facility] and is scheduled to see Dr Srivastava to have a procedure done. Candace Owens MD [address] [facility] [address], [place], [phone], [facility] 07/07/2023 19:32:06 4 text/html Medicare Annual Wellness VisitReported bypatient.Diet and Nutrition:healthy diet;diet is high in salt;high carbohydrate meals;low calcium intake Fracture Risk:no history of fractures; no recent explained fracture; no sudden unexplained fractures;previous musculoskeletal injuries(she has chronic neck pain) Physical Activity:good physical condition;does not exercise on a regular basis(sometimes golfs numerous times a week during) Depression Risk:never feels sad, empty, or tearful; no loss of interest in activities; no significant changes in weight; no sleep disturbances or insomnia; no agitation; no loss of energy; no feelings of worthlessness or guilt; no thoughts of suicide; no history of depression; no history of mood disorders Orientation:no disorientation to time; no disorientation to date; no disorientation to place Concentration and Memory:no decreased concentrating ability; no memory lapses or loss; does not forget words Speech/Motor difficulties:no speech difficulties; no difficulty expressing formulated concepts; no difficulty with fine manipulative tasks; no difficulty writing/copying; no slowed reaction time; does not knock things over when trying to pick them up Vision:no vision problems Activities of Daily Living:able to bathe with limited or no assistance; able to contol urination and bowels; able to dress with limited or no assistance; able to feed self with limited or no assistance; able to get out of chair or bed with limited or no assistance; able to groom with limited or no assistance; able to toilet with limited or no assistance Instrumental Activities of Daily Living:able to do house work with limited or no assistance; able to grocery shop with limited or no assistance; able to manage medications with limited or no assistance; able to manage money with limited or no assistance; able to prepare meals with limited or no assistance; able to use the phone with limited or no assistance Falls Risk Assessment:no frequent falls while walking; no fall in the past year; no fall since last visit; no dizziness/vertigo Her family problems have continued but are easier to deal with simply because time has passed and her expectations are lower. She has had limited contact with her son which [place] [address] [place] [address], [phone], [facility] 01/04/2024 16:38:07 OBGyn Episode No OBEpisode recorded.
== END 2024-05-01 13:36 | disposition home or self-care (01) ==
LOC: HO.US 13:35
PROVIDERS: PCP Internal Medicine; Visit Provider Physician Assistant
DX: M48.061 Spinal stenosis, lumbar region without neurogenic claudication (principal); R22.42 Localized swelling, mass and lump, left lower limb
CPT/HCPCS: 93971

== ENCOUNTER → 2024-05-01 13:37 | Outpatient (BNV) | payer MEDICARE, BC, SELFPAY | PROVIDERS: PCP Internal Medicine; Visit Provider Radiology Diagnostic Radiology | DX: M79.662 Pain in left lower leg (principal) | CPT/HCPCS: 93971 ==

== ENCOUNTER 2024-05-17 14:03 | Outpatient (REF) | payer MEDICARE, BC, SELFPAY ==
--- NOTE | ~2024-05-17 | XR_ITS ---
EXAMINATION: XR CERVICAL SPINE CLINICAL INFORMATION: M50.90 - Cervical disc disorder, unspecified, unspecified cervical region COMPARISON: None available. TECHNIQUE: 6 views of the cervical spine, inclusive of flexion and extension views, were obtained. FINDINGS: Craniocervical junction is intact. Endplate sclerosis and irregularity with decreased intervertebral disc height at C3-4. Marginal osteophyte formation at C5-6 and C6-7 levels. 2 mm retrolisthesis C4-5 in neutral position which reduces in flexion and extension position. Grade 1 retrolisthesis C3-4 in neutral position which reduces in flexion. Grade 1 anterolisthesis C2-3 in neutral position which persists during flexion and extension position. No lytic or blastic lesions. Calcifications in the no collateral ligament at C5-6 level. Vascular calcifications both sides, right greater than the left side of the neck.. XR/XR cervical spine 4V IMPRESSION: Multilevel cervical spondylosis C3 C7 with the multilevel grade 1 anterolisthesis and concerning for instability. Calcified plaques likely in the carotid bulbs and ICA, right and the left side. Electronically signed by: Leonardo Payan MD 05/18/2024 09:04 AM EDT
== END 2024-05-17 14:04 | disposition home or self-care (01) ==
LOC: HO.HOSX 14:03
PROVIDERS: PCP Internal Medicine; Visit Provider Physician Assistant
DX: M50.90 Cervical disc disorder, unspecified, unspecified cervical region (principal); M48.061 Spinal stenosis, lumbar region without neurogenic claudication
CPT/HCPCS: 72050; 99212

== ENCOUNTER 2024-05-17 14:03 | Outpatient (AMB) | payer MEDICARE, BC, SELFPAY ==
--- NOTE | 2024-05-17 14:36 | HO.SPINEOV ---
Intake Visit Reasons: 1st post op Intake Note: Ms. Narayanan is here today for her 1st post op. Inspector Process Required: No Allergies No Known Allergies Allergy (Verified 05/17/24 14:41) Assessment & Plan Assessment & Plan (1) Cervical disc disorder: Code(s): M50.90 - Cervical disc disorder, unspecified, unspecified cervical region Category: Medical (2) Lumbar stenosis: Code(s): M48.061 - Spinal stenosis, lumbar region without neurogenic claudication Category: Medical Plan Mrs Narayanan is here 3 weeks removed from her L3-4 decompression. She is doing exceedingly well and feeling great about the surgery. She has no incisional pain and her leg pain has completely gone. She is interested in starting the process of golfing again but understands that we need to take our time making that decision. I did tell her I would liberalize her activity in another 3-4 weeks. Her wound is healed up very nicely. Her gait is steady. She was asking about some neck discomfort she has been having that she gets intermittently but can be daily depending on what is going on in her life. It starts at the back of her head and can radiate upward but at times does radiate down to her subscapular region and trapezius. She does not have any weakness in her hands and no hyperreflexia to suggest myelopathy but I would like to get an x-ray just to evaluate for cervical degenerative disc disease. Through the years she has had cortisone shots for this as well as physical therapy etc.. She feels like it has some point whatever it is it may need to get fix surgically, so I told her we can just start with the x-rayed escalated up if the symptoms get worse. I will see her back in 3 weeks to review her x-rays and to see if she is ready to begin golfing. Peewee Daniels MD, PhD [facility] Orders: Orders XR cervical spine 4V Today M50.90 - Cervical disc disorder, unspecified, unspecified cervical region Coding Level of Care Code Global (15138) Diagnoses Cervical disc disorder M50.90 Lumbar stenosis M48.061
--- OUTSIDE RECORDS SUMMARY | 2024-05-17 15:29 | XMS_ITS | Data Portability ---
Author Organization [facility], Main Office Address [address] [facility] [address] [place] [id number] Care Team Providers Care Wallpaperer Helper Name Role Phone CANDACE OWENS Primary Care Provider KENNEDY MONTALVO Film Developing Machine Operator MICHAEL HARTLEY Government Instructor NAHUM SOSA It Training Specialist [phone] [facility] [...] Go To The Location Of Their Choice, [id number] 14:06:45 lipid panel, serum 2023 BIANKA [facility] (Centralized Electronic Ordering - All Locations), Patient Can Go To The Location Of Their Choice, [id number] 4 14:06:47 lead, quant, venous blood 2023 [...] qualitat braeden, stool 2023 [facility]ANK[facility], [address], [address], [place], [address], 4 09:38:52 unlisted lab - giardia lamblia, direct detectio n, EIA 2023 024 [facility]ANK[facility], [address], [address], [place], [address], 4 14:07:15 unlisted lab - routine culture, stool 2023 024 [facility], [address], [address], [place], [address], 4 14:09:21 lipid panel, serum 2022 023 [facility] (Centralized Electronic Ordering - All Locations), Patient Can Go To The Location Of Their Choice, [id number] 3 23:16:25 CMP, serum or plasma 2022 023 [facility] (Centralized Electronic Ordering - All Locations), Patient Can Go To The Location Of Their Choice, [id number] 3 23:16:23 CBC w/ auto diff 2022 023 [facility] (Centralized Electronic Ordering - All Locations), Patient Can Go To The Location Of Their Choice, [address] 20:10:27 Referral None recorded . Procedures None recorded . Surgeries None recorded . Imaging CT, abdomen, w/o contrast - Right adrenal mass. Please evaluate for stabilit y. 2022 023 [email or web address] [facility], [address], [address], [place], [address], 09:41:48 Medication Orders codeine 10 mg-guaif enesin 100 mg/5 mL oral liquid [address] [id number], [address] [place] [address], [address], 4 16:52:25 acetamin ophen 300 mg-codei ne 30 mg tablet [address] [facility]859, [address] [place] [address], [address], 4 16:41:03 zolpidem 5 mg tablet [address] [facility], [address] [place] [address], [address], 4 16:41:03 losartan 50 mg-hydro chloroth iazide 12.5 mg tablet 2022 023 [email or web address] [facility], [address] [place], [address], 4 11:56:54 pantopra zole 20 mg tablet,d elayed release 2022 023 [email or web address] [facility], [address] [place], [address], 15:02:34 Patient TargetsNo targets recorded. Patient Instructions Encounter Date Encounter Id Patient Instructions Last Modified By Organization Details Last Modified Time 12/29/2022 [id number] lumbar spinal stenosis: care instructions acennerazzo Not [...] female>75yrs) acennerazzo Not available 12/29/2022 13:55:00 02/09/2023 [id number] lumbar spinal stenosis: care instructions acennerazzo Not [...] pressure acennerazzo Not available 02/09/2023 15:22:50 07/06/2023 [id number] lumbar spinal stenosis: care instructions acennerazzo Not available 07/06/2023 16:40:59 insomnia: care instructions acennerazzo Not available 07/06/2023 16:40:58 gastroesophageal reflux disease (GERD): care instructions acennerazzo Not available 07/06/2023 13:04:55 high blood pressure: care instructions acennerazzo Not available 07/06/2023 13:04:55 learning about h igh blood pressure acennerazzo Not available 07/06/2023 13:04:55 high cholesterol : care instructions acennerazzo Not available 07/06/2023 13:04:55 01/03/2024 [id number] deciding about using medicines to quit smoking [...] Their Choice, 12/29/2022 23:16:22 12/30/1912/29/2022 COMPR EHENS BRAEEDN METAB OLIC PANL bicarbonate 26 mmol/ L [...] rp, [address], [place] [address] Not Available [facility] (Centralized Electronic Ordering - [...] rp, [address], [place] [address] Not Available [facility] (Centralized Electronic Ordering - [...] indic ated Test perfo rmed at [facility] , [address] [place] [address] , [place] [address] Not Available [facility] (Centralized Electronic Ordering - [...] rp, [address], [place] [address] Not Available [facility] (Centralized Electronic Ordering - All Locations) Patient Can Go To The Location Of Their Choice, 03/25/2023 14:09:20 03/18/19 24 03/25/2023 SALMO DARWIN /SHIG CATARCHO RESUL TS screen result 1 Commen t (NOTE ) No Salmo darwin or Shige lla recov ered. Test perfo rmed by [facility], [address] [place] [address] Not Available [facility] (Centralized Electronic Ordering - All Locations) Patient Can Go To The Location Of Their Choice, [id number] 03/25/2023 14:09:42 03/18/19 24 03/25/[address] RESUL TS culture result 1 Commen t (NOTE ) No Campy lobac ter speci es isola cristiano. Test perfo rmed by [facility], [address], [place] [address] Not Available [facility] (Centralized Electronic Ordering - All Locations) Patient Can Go To The Location Of Their Choice, [id number] 03/25/2023 14:09:43 08/26/19 24 08/26/2023 CBC w/ auto diff WBC 7.6 Not Available [facility] [address], [address], 08/29/2023 13:24:38 08/26/19 24 08/26/2023 CBC w/ auto diff RBC 4.57 Not Available [facility] [address], [address], 08/29/2023 13:24:38 08/26/19 24 08/26/2023 CBC w/ auto diff HGB 13.9 Not Available [address], [address], 08/29/2023 13:24:38 08/26/19 24 08/26/2023 CBC w/ auto diff HCT 42.1 Not Available [facility] [address], [address], 08/29/2023 13:24:38 08/26/19 24 08/26/2023 CBC w/ auto diff plt 209 Not Available [facility] [address], [address], 08/29/2023 13:24:38 01/03/20 24 01/04/2024 COMP. METAB OLIC PANEL (14) glucose 83 mg/dL 70-99 normal Not Available [facility] ([facility]) [address] [place], [address], 01/04/2024 14:06:45 01/03/20 24 01/04/2024 COMP. METAB OLIC PANEL (14) BUN 22 mg/dL 8-27 normal Not Available [facility] ([facility]) [address] [place], [address], 01/04/2024 14:06:45 01/03/20 24 01/04/2024 COMP. METAB OLIC PANEL (14) creatinine 0.82 mg/dL 0.57-1 .00 normal Not Available [facility] ([facility]) [address] [facility], [place], [address], 01/04/2024 14:06:45 01/03/20 24 01/04/2024 COMP. METAB OLIC PANEL (14) eGFR 72 mL/mi n/1.7 3 >59 normal Not Available [facility] ([facility]) [address] [place], [address], 01/04/2024 14:06:45 01/03/20 24 01/04/2024 COMP. METAB OLIC PANEL (14) BUN/creatini ne ratio 27 12-28 normal Not Available [facility] ([facility]) [address] [place], [address], 01/04/2024 14:06:45 01/03/20 24 01/04/2024 COMP. METAB OLIC PANEL (14) sodium 142 mmol/ L 134-14 4 normal Not Available [facility] ([facility]) [address] [place], [address], 01/04/2024 14:06:45 01/03/20 24 01/04/2024 COMP. METAB OLIC PANEL (14) potassium 4.5 mmol/ L 3.5-5. 2 normal Not Available [facility] ([facility]) [address] [place], [address], 01/04/2024 14:06:45 01/03/20 24 01/04/2024 COMP. METAB OLIC PANEL (14) chloride 103 mmol/ L 96-106 normal Not Available [facility] ([facility]) [address] [place], [address], 01/04/2024 14:06:45 01/03/20 24 01/04/2024 COMP. METAB OLIC PANEL (14) carbon dioxide, total 21 mmol/ L 20-29 normal Not Available [facility] ([facility]) [address] [place], [address], 01/04/2024 14:06:45 01/03/20 24 01/04/2024 COMP. METAB OLIC PANEL (14) calcium 9.8 mg/dL 8.7-10 .3 normal Not Available [facility] ([facility]) [address] [place], [address], 01/04/2024 14:06:45 01/03/20 24 01/04/2024 COMP. METAB OLIC PANEL (14) protein, total 7.0 g/dL 6.0-8. 5 normal Not Available [facility] ([facility]) [address] [place], [address], 01/04/2024 14:06:45 01/03/20 24 01/04/2024 COMP. METAB OLIC PANEL (14) albumin 4.4 g/dL 3.7-4. 7 normal Not Available [facility] ([facility]) [address] [place], [address], 01/04/2024 14:06:45 01/03/20 24 01/04/2024 COMP. METAB OLIC PANEL (14) globulin, total 2.6 g/dL 1.5-4. 5 Not Available [facility] ([facility]) [address] [place], [address], 01/04/2024 14:06:45 01/03/20 24 01/04/2024 COMP. METAB OLIC PANEL (14) bilirubin, total 0.2 mg/dL 0.0-1. 2 normal Not Available [facility] ([facility]) [address] [facility] [place], [address], 01/04/2024 14:06:45 01/03/20 24 01/04/2024 COMP. METAB OLIC PANEL (14) alkaline phosphatase 92 IU/L 44-121 normal Not Available [facility] ([facility]) [address] [facility] [place], [address], 01/04/2024 14:06:45 01/03/20 24 01/04/2024 COMP. METAB OLIC PANEL (14) AST (SGOT) 18 IU/L 0-40 normal Not Available [facility] ([facility]) [address] [place], [address], 01/04/2024 14:06:45 01/03/20 24 01/04/2024 COMP. METAB OLIC PANEL (14) ALT (SGPT) 16 IU/L 0-32 normal Not Available [facility] ([facility]) [address] [place], [address], 01/04/2024 14:06:45 01/03/20 24 01/04/2024 LIPID PANEL cholesterol, total 181 mg/dL 100-19 9 normal Not Available [facility] ([facility]) [address] [place], [address], 01/04/2024 14:06:47 01/03/20 24 01/04/2024 LIPID PANEL triglyceride s 188 mg/dL 0-149 above high normal Not Available [facility] ([facility]) [address] [place], [address], 01/04/2024 14:06:47 01/03/20 24 01/04/2024 LIPID PANEL HDL cholesterol 69 mg/dL >39 normal Not Available [facility] ([facility]) [address] [facility], [place], [address], 01/04/2024 14:06:47 01/03/20 24 01/04/2024 LIPID PANEL VLDL cholesterol jean pierre 31 mg/dL 5-40 Not Available [facility] ([facility]) [address] [place], [address], 01/04/2024 14:06:47 01/03/20 24 01/04/2024 LIPID PANEL LDL chol calc ([facility]) 81 mg/dL 0-99 Not Available [facility] ([facility]) [address] [facility], [place], [address], 01/04/2024 14:06:47 01/03/20 24 01/04/2024 LIPID PANEL LDL calc comment: TRANSMITTER ENGINEER Not Available [facility] ([facility]) [address] [facility], [place], [address], 01/04/2024 14:06:47 01/03/20 24 01/04/2024 LEAD, BLOOD [...] tion Limit = 1.0 Not Available [facility] ([facility]) [address] [facility], [place], [address], 01/04/2024 14:06:47 02/28/19 25 02/29/2024 CBC w/ auto diff WBC 7.9 Not Available [facility] [address] [place] [address], [address], 03/01/2024 16:44:40 01/15/20 25 02/29/2024 CBC w/ auto diff RBC 4.55 Not Available [facility] [address], [address], 03/01/2024 16:44:40 02/28/19 25 02/29/2024 CBC w/ auto diff HGB 14.0 Not Available [address], [address], 03/01/2024 16:44:40 02/28/19 25 02/29/2024 CBC w/ auto diff HCT 41.8 Not Available [address], [address], 03/01/2024 16:44:40 02/28/19 25 02/29/2024 CBC w/ auto diff plt 219 Not Available [address], [address], 03/01/2024 16:44:40 12/30/19 23 12/29/2022 mm digit [...] Lay letter mailed to mesfin olivia WSN: [id number] Orderi ng Physic rose: Candace Farooq Dictat ed By: Chelsea Eastman MD Dictat ed Date/T stephania: 12:11 pm Review ed By: Chelsea Eastman MD Signed By: Chelsea Eastman MD Signed Date/T stephania: 12:11 pm Transc ribed By: DEMETRA Transc riptio n Date/T stephania: 11:45 am Birads : Patien t Class: Outpat ient [email or web address] [facility] (Outpt Imaging) [address], [place], [address], 12/29/2022 13:29:23 01/13/20 23 01/12/2023 CT, abdom [...] CT abdome n from 2019 FINDIN GS: Public Affairs Director View Findin gs, Lines and Tubes: None. [...] abdome n on noncon trast exam. WSN: [id number] Orderi ng Physic rose: Candace Farooq Dictat ed By: Michael Jones MD Dictat ed Date/T stephania: 2:26 pm Review ed By: Michael Jones MD Signed By: Michael Jones MD Signed Date/T stephania: 2:26 pm Transc ribed By: DEMETRA Transc ribed Date/T stephania: 2:22 pm Patien t Class: Outpat ient [facility] (Outpt Imaging) [address] [facility], [place], [address], 01/13/2023 09:43:07 04/15/19 24 04/15/2023 MRI, cervi [...] or protru sions as descri bed below. 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 The cervic [...] t disc bulgin g. C3-C4: There are chief controller center ior endpla te spurs and a minima [...] is a minima l disc bulge and chief controller center ior endpla te spurs flatte freya the [...] is a minima l disc bulge and chief controller center ior endpla te spurs flatte freya the ventra l thecal sac and remode ling the cord with mild canal stenos is, not signif icantl y change d since prior examin ation. There are uncove rtebra l and facet joint spurs result ing in modera te right and severe left forami nal stenos is, simila r to prior examin ation. C6-C7: There are chief controller center ior endpla te spurs and a minima [...] signal within the cervic al cord. WSN: [id number] Orderi ng Physic rose: Candace Farooq Dictat ed By: Makenzie Granados MD Dictat ed Date/T stephania: 3:45 pm Review ed By: Makenzie Granados MD Signed By: Makenzie Granados MD Signed Date/T stephania: 3:45 pm Transc ribed By: DEMETRA Transc ribed Date/T stephania: 3:36 pm Patien t Class: Outpat ient [email or web address] [facility] (Outpt Imaging) [address] [facility], [place], [address], 04/20/2023 16:34:34 04/18/19 24 04/15/2023 imagi ng/di agnos tic resul t No observ ation record ed. [facility] [address], [place], [address], 05/06/2023 19:03:32 11/30/19 24 11/30/2023 MAMMO , [...] Lay letter mailed to mesfin olivia WSN: [id number] Orderi ng Physic rose: Candace Farooq Dictat ed By: Kurt Conklin MD Dictfilemon ed Date/T stephania: 3:28 pm Review ed By: Kurt Conklin MD Signed By: Kurt Conklin MD Signed Date/T stephania: 3:28 pm Transc ribed By: DEMETRA Transc riptio n Date/T stephania: 3:23 pm Birads : Mesfin baker Class: Outpat ient [email or web address] [facility] (Outpt Imaging) [address] [place], [address], 12/01/2023 09:37:10 03/01/19 25 02/27/2024 bone densi ty No observ ation record ed. [address], [address], 03/02/2024 11:29:37 03/01/19 25 02/27/2024 bone densi ty No observ ation record ed. [address], [address], 03/02/2024 11:27:17 03/01/19 25 02/27/2024 bone densi ty No observ ation record ed. [address], [address], 03/02/2024 11:27:35 03/01/19 25 02/27/2024 bone densi ty No observ ation record ed. [address], [address], 03/02/2024 11:27:45 03/01/19 25 02/27/2024 bone densi ty No observ ation record ed. [address], [address], 03/02/2024 11:27:54 03/01/19 25 02/27/2024 bone densi ty No observ ation record ed. [address], [address], 03/02/2024 11:28:00 03/01/19 25 02/27/2024 bone densi ty No observ ation record ed. [address], [address], 03/02/2024 11:28:09 03/01/19 25 02/27/2024 bone densi ty No observ ation record ed. [address] [place], [address], 03/02/2024 11:28:15 03/01/19 25 02/27/2024 bone densi ty No observ ation record ed. [email or web address] [facility] [address], [address], 03/02/2024 11:28:24 03/01/19 25 02/27/2024 bone densi ty No observ ation record ed. [email or web address] [facility] [address], [address], 03/02/2024 11:28:32 Result Notes None recorded. 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 IF THIS NOT WORKING THEN CAN STEP UP TO EYE DROPS AND/OR NASAL SPRAY NEEDED; RECORDED 10/07/19 12 10:10AM BY DANNY KENNEY ON/MONI lindo [facility] 6 12:48:49 Elevated blood-pr essure reading without diagnosi s of hyperten lashell 461137851 Completed 201108/28/2013 RECORDED 09/16/19 12 9:41AM BY CANDACE STALEY MD, DANNY ON/MONI lindo [facility] 6 12:48:49 Screenin jeanne for malignan t neoplasm of breast Completed 201108/28/2013 RECORDED 08/26/19 12 5:32PM BY CANDACE STALEY MD, ANNOTATI ON/ADDEN DUM Peewee JacintoAlessand ro null, [facility] 6 12:48:49 Chest pain 65446977 Completed 201108/28/2013 IMPRESSI ON: NO FURTHER CP; RECORDED 10/07/19 12 10:10AM BY DANNY KENNEY ON/ADDEN DUM Peewee JacintoAlessand ro null, [facility] 6 12:48:49 Finding by method [id number] Completed 201108/28/2013 IMPRESSI ON: MOST LIKELY NONSPECI FIC BUT A LUNG PROBLEM COULD CAUSE LUQ AB PAIN SO WILL DO CXR; RECORDED 09/16/19 12 9:41AM BY CANDACE STALEY MD, DANNY ON/ADDEN DUM Peewee JacintoAlessand ro null, [facility] 6 12:48:50 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 THIS MAY BE NORMAL CHANGES BUT WE WILL CONTINUE TO PURSUE A MEDICAL ETIOLOGY WITH A SECOND ENDO OPINION REGARDIN Jeanne HER PRESUMED ADRENAL ADENOMA. ; RECORDED 01/11/20 12 11:07AM BY DANNY KENNEY ON/ADDEN DUM Peewee JacintoAlessand ro null, [facility] 6 12:48:49 Influenz a vaccine needed 14022527379 06 Completed 201208/28/2013 RECORDED 12/13/19 13 3:40PM BY FLACA DORMAN MA, NURSE VISIT Peewee lindo, [facility] 6 12:48:49 Gastroes ophageal reflux disease 683335379 Active Loretta Ward belgica, [facility] 0 14:36:21 Pure hypercho lesterol emia 419242864 Completed 11/03/2016 Will restart statin September 2014 Candace Owens MD [address], [place], [address] , [facility] 7 17:13:15 Hypercho lesterol emia 97098492 Completed 201308/28/2013 RESOLVED DATE: 03/08/19 14; ; RECORDED 03/08/19 14 10:01AM BY DANNY KENNEY ON/ADDEN [facility] Peewee lindo, [facility] 6 12:48:49 Incision al hernia 188317768 Completed 201108/28/2013 RECORDED 10/07/19 12 11:56AM BY CANDACE STALEY MD, [facility]NY [facility] Peewee lindo, [facility] 6 12:48:49 Hip pain 07816484 Completed 201308/28/2013 RECORDED 03/08/19 14 10:01AM BY DANNY KENNEY ON/[facility] Peewee lindo, [facility] 6 12:48:49 Left upper quadrant pain 282162949 Completed 201108/28/2013 IMPRESSI ON: MOST LIKELY CAUSE [...] KENNEY ON/ADDEN DUM Peewee Culver ro null, [facility] 6 12:48:49 Low back pain 368199296 Active Possibke spinal stenosis that does well with injectio n. Followed by rheum and has also seen [facility]. Candace Owens MD [address] [facility] [address], [place], [address] , [facility] 2 10:10:36 Screenin g for malignan t neoplasm of breast Completed 03/27/2014 Peewee go null, [facility] 6 12:48:49 Backache 957173393 Completed 201308/28/2013 RECORDED 03/08/19 14 10:01AM BY DANNY KENNEY ON/ADDEN DUM Peewee Culver ro null, [facility] 6 12:48:49 Migraine 41346297 Active Loretta lindo, [facility] 0 14:36:21 Migraine 49348182 Completed 201308/28/2013 RECORDED 03/08/19 14 10:01AM BY DANNY KENNEY ON/ADDEN DUM Peewee Culver ro null, [facility] 6 12:48:49 Neck pain 82440363 Active Seen by Dr Carrillo Nov 2016 and schedule d for facet injectio n; probable OA. Seen by Dr Mims May 2018 who feels that this does not warrent any aggressi ve care and tried to reassure the patient. Loretta lindo [facility] 0 14:36:21 Active or passive immuniza tion Completed 201008/28/2013 RECORDED 04/02/19 11 11:01AM BY CRISTINA WARD, HISTORIC AL SUMMARY Peewee lindo, [facility] 6 12:48:49 Administ ration of tetanus vaccine Completed 201108/28/2013 RECORDED 08/26/19 12 5:32PM BY CANDACE STALEY MD, ANNOTATI ON/[facility] Peewee Culver ro null, [facility] 6 12:48:49 Osteoart hritis 346719698 Active Loretta Ward null, [facility] 0 14:36:20 Disorder of bone and articula r cartilag e 636297402 Active Loretta Ward null, [facility] 0 14:36:21 Perforat ion of tympanic membrane 05108284 Active Loretta Ward null, [facility] 0 14:36:21 Pneumoni a 886437245 Completed 201108/28/2013 IMPRESSI ON: BETTER WITH LEVAQUIN , QUIT SMOKING; RECORDED 09/16/19 12 9:41AM BY CANDACE STALEY MD, ANNOTATI ON/[facility] Peewee Culver ro null, [facility] 6 12:48:49 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 Loretta Ward null, [facility] 0 14:36:20 Adult health examinat ion Completed 201308/28/2013 RECORDED 03/08/19 14 10:01AM BY ROSA M KENNEYATI ON/[facility] 12:48:49 Sciatica 42869133 Completed 201108/28/2013 RECORDED 10/07/19 12 11:56AM BY CANDACE STALEY MD, ANNOTATI ON/[facility] Peewee go null, [facility] 6 12:48:49 Screenin g for malignan t neoplasm of cervix Completed 201108/28/2013 RECORDED 08/26/19 12 5:32PM BY CANDACE STALEY MD, ANNOTATI ON/[facility] Peewee go null, [facility] 6 12:48:49 Screenin g for malignan t neoplasm of colon Completed 03/27/2014 Peewee Culver ro null, [facility] 6 12:48:50 Sprain of hand 81997647 Completed 201108/28/2013 RECORDED 10/07/19 12 10:10AM BY DANNY KENNEY ON/ADDEN DUM Peewee uClver ro null, [facility] 6 12:48:49 Administ ration of diphther ia and tetanus vaccine Completed 201208/28/2013 RECORDED 09/05/19 13 8:22AM BY DANNY KENNEY ON/ADDEN DUM Peewee Wattsand ro null, [facility] 6 12:48:49 Tobacco dependen ce syndrome 02396829 Completed 201308/28/2013 RECORDED 03/08/19 14 10:01AM BY DANNY KENNEY ON/ADDEN DUM Peewee Wattsand ro null, [facility] 6 12:48:49 Major depressi ve disorder 530725739 Active This is a minor issue and is resolvin gJelena Ward null, [facility] 0 14:36:21 Disorder of adrenal gland 20547336 Completed 201109/20/2013 RECORDED 10/07/19 12 11:55AM BY CANDACE STALEY MD, DANNY ON/ADDEN DUM Peewee Culver ro null, [facility] 6 12:48:49 Allergic rhinitis 00229191 Completed 201109/20/2013 IMPRESSI ON: START WITH ZYRTEC. IF THIS NOT WORKING THEN CAN STEP UP TO EYE DROPS AND/OR NASAL SPRAY NEEDED; RECORDED 10/07/19 12 10:10AM BY DANNY KENNEY ON/ADDEN MISAEL Culver ro null, [facility] 6 12:48:49 Elevated blood-pr essure reading without diagnosi s of hyperten lashell [id number] Completed 201109/20/2013 RECORDED 09/16/19 12 9:41AM BY CANDACE STALEY MD, ANNOTATI ON/ADDEN DUM Peewee Culver ro null, [facility] 6 12:48:49 Screenin g for malignan t neoplasm of breast Completed 201109/20/2013 RECORDED 08/26/19 12 5:32PM BY CANDACE STALEY MD, ANNOTATI ON/ADDEN DUM Peewee JacintoAlegavi ro null, [facility] 6 12:48:49 Chest pain [id number] Completed 201109/20/2013 IMPRESSI ON: NO FURTHER CP; RECORDED 10/07/19 12 10:10AM BY DANNY KENNEY ON/ADDEN DUM Peewee Culver ro null, [facility] 6 12:48:49 Finding by method [id number] Completed 201109/20/2013 IMPRESSI ON: MOST LIKELY NONSPECI FIC BUT A LUNG PROBLEM COULD CAUSE LUQ AB PAIN SO WILL DO CXR; RECORDED 09/16/19 12 9:41AM BY CANDACE STALEY MD, DANNY ON/ADDEN DUM Peewee Culver ro null, [facility] 6 12:48:50 Tietze's disease [id number] Completed 201109/20/2013 RECORDED 10/07/19 12 10:10AM BY DANNY KENNEY ON/ADDEN DUM Peewee Culver ro null, [facility] 6 12:48:49 Malaise and fatigue [id number] Completed 201109/20/2013 IMPRESSI ON: NO MEDICAL ETIOLOGY IS BEING FOUND. 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 ; RECORDED 01/11/20 12 11:07AM BY DANNY KENNEY ON/ADDEN DUM Peewee Culver ro null, [facility] 6 12:48:49 Influenz a vaccine needed [id number] 06 Completed 201209/20/2013 RECORDED 12/13/19 13 3:40PM BY FLACA DORMAN MA, NURSE VISIT Peewee Culver ro null, [facility] 6 12:48:49 Hypercho lesterol emia [id number] Completed 201309/20/2013 RESOLVED DATE: 03/08/19 14; ; RECORDED 03/08/19 14 10:01AM BY DANNY KENNEY ON/ADDEN DUM Peewee Culver ro null, [facility] 6 12:48:49 Incision al hernia [id number] Completed 201109/20/2013 RECORDED 10/07/19 12 11:56AM BY CANDACE STALEY MD, DANNY ON/ADDEN DUM Peewee Culver ro null, [facility] 6 12:48:49 Hip pain 62899006 Completed 201309/20/2013 RECORDED 03/08/19 14 10:01AM [facility] Pee[facility]e JacintoAlebrittand ro null, [facility] 6 12:48:49 Left upper quadrant pain 761535635 Completed 201109/20/2013 IMPRESSI ON: MOST LIKELY CAUSE [...] KENNEY ON/ADDEN DUM Peewee JacintoAlessand ro null, [facility] 6 12:48:49 Backache 739403453 Completed 201309/20/2013 RECORDED 03/08/19 14 10:01AM BY ROSA M KENNEYATI ON/ADDEN DUM Peewee Hunter'Alessand ro null, [facility] 6 12:48:49 Active or passive immuniza tion Completed 201009/20/2013 RECORDED 04/02/19 11 11:01AM BY CRISTINA WARD, HISTORIC AL SUMMARY Peewee Hunter'Alessand ro null, [facility] 6 12:48:49 Administ ration of tetanus vaccine Completed 201109/20/2013 RECORDED 08/26/19 12 5:32PM BY CANDACE STALEY MD, DANNY ON/ADDEN DUM Peewee Hunter'Alessand ro null, [facility] 6 12:48:49 Pneumoni a [id number] Completed 201109/20/2013 IMPRESSI ON: BETTER WITH LEVAQUIN , QUIT SMOKING; RECORDED 09/16/19 12 9:41AM BY CANDACE STALEY MD, ROSA MATI ON/ADDEN DUM Peewee Hunter'Alessand ro null, [facility] 6 12:48:49 Adult health examinat ion Completed 201309/20/2013 RECORDED 03/08/19 14 10:01AM BY ROSA M KENNEYATI ON/ADDEN DUM Peewee Hunter'Alessand ro null, [facility] 6 12:48:49 Sciatica [id number] Completed 201109/20/2013 RECORDED 10/07/19 12 11:56AM BY CANDACE STALEY MD, ROSA MATI ON/ADDEN DUM Peewee JacintoAlessand ro null, [facility] 6 12:48:49 Screenin g for malignan t neoplasm of cervix Completed 201109/20/2013 RECORDED 08/26/19 12 5:32PM BY CANDACE STALEY MD, ANNOTATI ON/ADDEN DUM Peewee JacintoAlessand ro null, [facility] 6 12:48:49 Sprain of hand [id number] Completed 201109/20/2013 RECORDED 10/07/19 12 10:10AM BY DANNY KENNEY ON/ADDEN DUM Peewee JacintoAlessand ro null, [facility] 6 12:48:49 Administ ration of diphther ia and tetanus vaccine Completed 201209/20/2013 RECORDED 09/05/19 13 8:22AM BY DANNY KENNEY ON/ADDEN DUM Peewee JacintoAlessand ro null, [facility] 6 12:48:49 Tobacco dependen ce syndrome 57633600 Completed 201309/20/2013 RECORDED 03/08/19 14 10:01AM BY DANNY KENNEY ON/ADDEN DUM Peewee JacintoAlessand ro null, [facility] 6 12:48:49 Disorder of adrenal gland 13671195 Completed 201109/21/2013 RECORDED 10/07/19 12 11:55AM BY CANDACE STALEY MD, DANNY ON/ERASTOPRATIBHA Culver ro null, [facility] 6 12:48:49 Allergic rhinitis 31416937 Completed 201109/21/2013 IMPRESSI ON: START WITH ZYRTEC. IF THIS NOT WORKING THEN CAN STEP UP TO EYE DROPS AND/OR NASAL SPRAY NEEDED; RECORDED 10/07/19 12 10:10AM BY DANNY KENNEY ON/ERASTOEN MISAEL Culver ro null, [facility] 6 12:48:49 Elevated blood-pr essure reading without diagnosi s of hyperten lashell [id number] Completed 201109/21/2013 RECORDED 09/16/19 12 9:41AM BY CANDACE STALEY MD, DANNY ON/ADDEN DUM Peewee Culver ro null, [facility] 6 12:48:49 Screenin g for malignan t neoplasm of breast Completed 201109/21/2013 RECORDED 08/26/19 12 5:32PM BY CANDACE STALEY MD, DANNY ON/ADDPRATIBHA go null, [facility] 6 12:48:49 Chest pain [id number] Completed 201109/21/2013 IMPRESSI ON: NO FURTHER CP; RECORDED 10/07/19 12 10:10AM BY DANNY KENNEY ON/ADDEN DUM Peewee go null, [facility] 6 12:48:49 Finding by method [id number] Completed 201109/21/2013 IMPRESSI ON: MOST LIKELY NONSPECI FIC BUT A LUNG PROBLEM COULD CAUSE LUQ AB PAIN SO WILL DO CXR; RECORDED 09/16/19 12 9:41AM BY CANDACE STALEY MD, DANNY ON/ADDPRATIBHA go null, [facility] 6 12:48:50 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 ; RECORDED 01/11/20 12 11:07AM BY DANNY KENNEY/MONI lindo, [facility] 6 12:48:49 Influenz a vaccine needed [id number] 06 Completed 201209/21/2013 RECORDED 12/13/19 13 3:40PM BY FLACA DORMAN MA, NURSE VISIT Peewee lindo, [facility] 6 12:48:49 Hypercho lesterol emia 43786437 Completed 201309/21/2013 RESOLVED DATE: 03/08/19 14; ; RECORDED 03/08/19 14 10:01AM BY DANNY KENNEY ON/ADDEN DUM Peewee Culver ro null, [facility] 6 12:48:49 Incision al hernia 443096616 Completed 201109/21/2013 RECORDED 10/07/19 12 11:56AM BY CANDACE STALEY MD, DANNY ON/ADDEN DUM Peewee Culver ro null, [facility] 6 12:48:49 Hip pain 16114134 Completed 201309/21/2013 RECORDED 03/08/19 14 10:01AM BY DANNY KENNEY ON/ADDEN DUM Peewee Culver ro null, [facility] 6 12:48:49 Left upper quadrant pain 954599476 Completed 201109/21/2013 IMPRESSI ON: MOST LIKELY CAUSE [...] KENNEY ON/ADDEN DUM Peewee Culver ro null, [facility] 6 12:48:49 Backache 091120780 Completed 201309/21/2013 RECORDED 03/08/19 14 10:01AM [facility] Culver ro null, [facility] 6 12:48:49 Active or passive immuniza tion Completed 201009/21/2013 RECORDED 04/02/19 11 11:01AM BY CRISTINA WARD, HISTORIC AL SUMMARY Peewee Culver ro null, [facility] 6 12:48:49 Administ ration of tetanus vaccine Completed 201109/21/2013 RECORDED 08/26/19 12 5:32PM BY CANDACE STALEY MD, ROSA MATI ON/ADDEN DUM Peewee JacintoAlessand ro null, [facility] 6 12:48:49 Pneumoni a [id number] Completed 201109/21/2013 IMPRESSI ON: BETTER WITH LEVAQUIN , QUIT SMOKING; RECORDED 09/16/19 12 9:41AM BY CANDACE STALEY MD, DANNY ON/ADDEN DUM Peewee JacintoAlessand ro null, [facility] 6 12:48:49 Adult health examinat ion Completed 201309/21/2013 RECORDED 03/08/19 14 10:01AM BY DANNY KENNEY ON/ADDEN DUM Peewee JacintoAlessand ro null, [facility] 6 12:48:49 Sciatica 87465172 Completed 201109/21/2013 RECORDED 10/07/19 12 11:56AM BY CANDACE STALEY MD, DANNY ON/ADDEN DUM Peewee JacintoAlessand ro null, [facility] 6 12:48:49 Screenin g for malignan t neoplasm of cervix Completed 201109/21/2013 RECORDED 08/26/19 12 5:32PM BY CANDACE STALEY MD, DANNY ON/ADDEN DUM Peewee JacintoAlessand ro null, [facility] 6 12:48:49 Sprain of hand 19491787 Completed 201109/21/2013 RECORDED 10/07/19 12 10:10AM BY DANNY KENNEY ON/ADDEN DUM Peewee JacintoAlessand ro null, [facility] 6 12:48:49 Administ ration of diphther ia and tetanus vaccine Completed 201209/21/2013 RECORDED 09/05/19 13 8:22AM BY DANNY KENNEY ON/ADDEN DUM Peewee HunterLaylaChandu ro null, [facility] 6 12:48:49 Tobacco dependen ce syndrome 79232632 Completed 201309/21/2013 RECORDED 03/08/19 14 10:01AM BY ROSA M KENNEYATI ON/ADDEN DUM Peewee Macmiracle ro null, [facility] 6 12:48:49 Allergic rhinitis 99909884 Active Loretta lindo, [facility] 0 14:36:20 Cough 49457324 Completed 03/26/2016 Candace Owens MD [address] [facility] [address], [facility] [place], [address] , [facility] 8 10:37:43 Tobacco dependen ce syndrome 16011271 Active Trying to quit with chantix Loretta lindo [facility] 0 14:36:21 Diarrhea 03918282 Completed 201403/26/2016 NILDA Epstein, [facility] 7 14:12:31 Contusio n of toenail 70128063 Active 2014 referred to podiatry Loretta lindo [facility] 0 14:36:20 Allergic conjunct ivitis 149592116 Completed 03/26/2016 NILDA Epstein [facility] 7 14:12:23 Insomnia 406664330 Active Loretta lindo [facility] 0 14:36:21 Dysuria 59931353 Completed 03/26/2016 NILDA Epstein, [facility] 7 14:12:20 Increase d frequenc y of urinatio n 624989874 Completed 03/26/2016 NILDA Epstein [facility] 7 14:12:16 Anterior knee pain 377232006 Active Loretta lindo [facility] 0 14:36:20 Hyperlip idemia 47808638 Active 2016 Loretta lindo, [facility] 0 14:36:21 Osteopen ia 437519762 Active 2016 Last BMD 03/2103; BMD done July 2018, stable Loretta lindo, [facility] 0 14:36:21 Subacrom ial bursitis 43460330 Active 2016 Gets injectio ns at Rhe[facility] Loretta lindo [facility] 0 14:36:20 Aneurysm of splenic artery 82329595 Active 2017 Candace Owens MD [address] [facility] [address], [place], [address] , [facility] 8 16:06:43 Cramp in lower limb 101670035 Active 2017 Loretta lindo, [facility] 0 14:36:21 Cough 89652619 Active 2017 Loretta lindo, [facility] 0 14:36:21 Pain in left lower limb 357501050 Active 2017 Left groin pain since 2012. Followed by [facility]. Loretta lindo [facility] 0 14:36:21 Spinal stenosis of lumbar region 15308949 Active 2020 Followed by [facility] Last injectio n September 2022. Candace Owens MD [address], [place], [address] , [facility] 3 07:44:17 Hyperten lashell monitori ng declined 238469833 Active 2021 [facility] NILDA Gupta, [facility] 2 09:47:37 Stenosin g tenosyno vitis 46534754 Active 2021 Bilatera l ring fingers; injected by hand surgeon. Candace Owens MD [address] [facility] [address], [place], [address] , [facility] 2 09:32:43 Problem Notes None recorded. Procedures Surgical History Date Name Laterality Status Provider Name and Address Organization Details Recorded Time 02/26/19 25 Dxa bone density lisa vrt fx completed Suellen Unger [facility] 03/02/2024 11:27:12 11/30/19 24 Most Recent Mammogram completed Suellen Unger [facility] 12/01/2023 09:37:07 05/20/19 24 Colonoscopy completed Suellen Unger [facility] 05/20/2023 13:12:44 12/30/19 23 Mammogram screening completed Emerald Maldonado [facility] 12/29/2022 13:29:13 02/06/[address] of lungs completed Suellen Unger [facility] 02/05/2022 15:48:02 01/22/20 22 hand injection completed Suellen Unger [facility] 01/27/2022 10:26:37 07/01/19 22 Most Recent Bone Density completed Flower Wade MA [facility] 12/28/2021 13:48:13 07/01/19 22 Dxa bone density axial completed Flower Wade MA [facility] 07/31/2021 12:49:34 11/21/19 20 Six-Item Cognitive Test completed Aisha Miles MA [facility] 11/21/2019 14:14:21 11/07/19 19 Mini-Cog Test completed Mariah Hunt [facility] 11/06/2018 10:42:46 09/19/19 19 Date of Last Colonoscopy completed Loretta Ward [facility] 09/20/2018 14:58:46 08/16/19 19 Dxa bone density lisa vrt fx completed Mariah Hunt [facility] 08/16/2018 14:01:32 11/02/19 18 Mini-Cog Test completed Mariah Hunt [facility] 11/01/2017 10:16:51 10/27/19 17 Fall Risk Assessment completed Mariah Hunt [facility] 10/26/2016 14:03:31 10/27/19 17 Mini-Cog Test completed Mariah Hunt [facility] 10/26/2016 14:03:41 09/29/19 17 Orthopedic Surgery completed Haylee Fitzgerald [facility] 12/02/2016 15:50:50 10/21/19 16 Fall Risk Assessment completed Flaca Dorman MA [facility] 10/21/2015 11:05:22 10/21/19 16 Mini-Cog Test completed Flaca Dorman MA [facility] 10/21/2015 11:06:39 10/21/19 16 Advanced Care Planning completed Flaca Dorman MA [facility] 10/21/2015 10:59:15 06/11/19 16 Other completed Mariah Hunt [facility] 06/16/2015 11:30:32 09/27/19 15 Fall Risk Assessment completed Mariah Hunt [facility] 09/26/2014 11:16:38 09/27/19 15 Mini-Cog Test completed Mariah Hunt [facility] 09/26/2014 11:16:38 09/06/19 14 Fall Risk Assessment completed Mariah Hunt [facility] 09/05/2013 10:34:39 09/06/19 14 Mini-Cog Test completed Mariah Hunt [facility] 09/05/2013 10:34:39 06/15/19 14 Date of Last Pap Smear completed Mariah Hunt [facility] 09/05/2013 10:34:40 02/14/19 12 Hernia Repair completed Candace Owens MD [address] [place], [address], [facility] 09/05/2013 10:59:04 10/16/19 04 Carpal tunnel surgery completed Candace Owens MD [address], [place], [address], [facility] 10/26/2016 14:36:19 10/15/18 98 Partial removal of colon completed Candace Owens MD [address], [place], [address], [facility] 10/26/2016 14:34:54 02/14/18 92 [facility] 14:13:22 Imaging Results Imaging Date Name Status LastModified by Organiz ation Details LastModified Time 12/29/2022 mm digital mammo unilat left completed [email or web address] [facility] (Outpt Imaging) [address] [place], [address], 12/29/2022 13:29:23 01/12/2023 CT, abdomen, w/o contrast completed [facility] (Outpt Imaging) [address] [place], [address], 01/13/2023 09:43:07 04/15/2023 MRI, cervical spine, w/o contrast completed [email or web address] [facility] (Outpt Imaging) [address] [place], [address], 04/20/2023 16:34:34 04/15/2023 imaging/diagno stic result completed [facility] [address] [place], [address], 05/06/2023 19:03:32 11/30/2023 MAMMO, screening, digital, bilateral completed [email or web address] [facility] (Outpt Imaging) [address] [place], [address], 12/01/2023 09:37:10 02/27/2024 bone density [place] [address] [facility] [address] [place] [address], [address], 03/02/2024 11:29:37 02/27/2024 bone density completed [place] [address] [facility] [address] [place] [address], [address], 03/02/2024 11:27:17 02/27/2024 bone density completed [place] [address] [facility] [address] [place] [address], [address], 03/02/2024 11:27:35 02/27/2024 bone density completed [place] [address] [facility] [address] [place] [address], [address], 03/02/2024 11:27:45 02/27/2024 bone density completed [place] [address] [facility] [address] [place] [address], [address], 03/02/2024 11:27:54 02/27/2024 bone density completed [place] [address] [facility] [address] [place] [address], [address], 03/02/2024 11:28:00 02/27/2024 bone density completed [place] [address] [facility] [address] [place] [address], [address], 03/02/2024 11:28:09 02/27/2024 bone density completed [place] [address] [facility] [address] [place] [address], [address], 03/02/2024 11:28:15 02/27/2024 bone density completed [place] [address] [facility] [address] [place] [address], [address], 03/02/2024 11:28:24 02/27/2024 bone density completed [place] [address] [facility] [address] [place] [address], [address], 03/02/2024 11:28:32 Procedure Notes None recorded. Medical Equipment None Reported. Allergies Allergen ID Allergen Name Allergen Category Reaction Reaction Severity Criticality Documentation Date Start Date Code Code System Note Provider Name and Address Organization Details Recorded Time 98599 atorvasta tin medicatio n Not available Not available Not available 07/25/2019 53512 RxNorm Mariah [place] null, [facility] 0 13:42:54 3345 Lipitor medicatio n arthralgi a (joint pain) Not available Not available 08/28/2013 16879 5 RxNorm REACT ION: LEG PAIN HUI Marie [address] [facility] [address], [place], [address], [facility] 5 17:54:36 74938 house dust mite environme nt Not available Not available Not available 12/28/2021 10225 UNK Flower Wade [place] null, [facility] 2 13:55:00 89913 Product containin g angiotens in-conver ting enzyme inhibitor (product) medicatio n cough mild low 12/30/2022 87886 009 SNOMED Candace cunningham MD [address] [facility] [address], [place], [address], [facility] 3 08:37:29 Medications Name Sig Start Date Stop Date Status Note LastModified by Organization Details LastModified Time eye allergy itch/red rlf 0.1% soln 12/28 completed Not Available Not Available Not Available Prescript ion - Prior Authoriza tion Request [...] Available Not Available Nasonex 50 mcg/actua tion [place] 2 sprays every day by intranas al [...] Updated DateTime 3 154.31 cm 32.4 kg/m2 43850.7 g 84 /min 96 % 96 % 98.2 [degF] 144 mm[Hg] 79 mm[Hg] Nikki Beavers [facility] 3 13:03:54 Date Recorded Body height Body mass index (BMI) Body weight Heart rate Oxygen saturation Oxygen saturation in Arterial blood by Pulse oximetry Body temperature Systolic blood pressure Diastolic blood pressure Provider Name and Address Organization Details Last Updated DateTime 3 154.31 cm 32.6 kg/m2 13547.4 g 108 /min 96 % 96 % 97.7 [degF] 133 mm[Hg] 80 mm[Hg] Elisha Khanna LPN [facility] 3 14:58:39 Date Recorded Heart rate Systolic blood pressure Diastolic blood pressure Provider Name and Address Organization Details Last Updated DateTime 02/28/2023 94 /min 120 mm[Hg] 66 mm[Hg] Elisha Khanna LPN [facility] 03/02/2023 11:24:18 Date Recorded Heart rate Heart rate Systolic blood pressure Diastolic blood pressure Systolic blood pressure Diastolic blood pressure Provider Name and Address Organization Details Last Updated DateTime 4 87 /min 84 /min 133 mm[Hg] 86 mm[Hg] 118 mm[Hg] 77 mm[Hg] Elisha Khanna LPN [facility] 4 11:24:51 Date Recorded Heart rate Systolic blood pressure Diastolic blood pressure Provider Name and Address Organization Details Last Updated DateTime 03/02/2023 90 /min 126 mm[Hg] 74 mm[Hg] Elisha Khanna [facility] 03/02/2023 11:25:07 Date Recorded Body height Body mass index (BMI) Body weight Heart rate Oxygen saturation Oxygen saturation in Arterial blood by Pulse oximetry Body temperature Systolic blood pressure Diastolic blood pressure Provider Name and Address Organization Details Last Updated DateTime 4 154.31 cm 32.4 kg/m2 95822.7 g 99 /min 97 % 97 % 97.7 [degF] 157 mm[Hg] 82 mm[Hg] Nikki Beavers MA [facility] 4 10:42:33 Date Recorded Body height Body mass index (BMI) Body weight Heart rate Oxygen saturation Oxygen saturation in Arterial blood by Pulse oximetry Body temperature Systolic blood pressure Diastolic blood pressure Provider Name and Address Organization Details Last Updated DateTime 4 154.31 cm 32.6 kg/m2 78467.3 g 87 /min 97 % 97 % 98.1 [degF] 161 mm[Hg] 92 mm[Hg] Nikki Beavers MA [facility] 4 12:56:22 Date Recorded Body height Body mass index (BMI) Body weight Heart rate Oxygen saturation Oxygen saturation in Arterial blood by Pulse oximetry Body temperature Systolic blood pressure Diastolic blood pressure Provider Name and Address Organization Details Last Updated DateTime 4 154.31 cm 13.1 kg/m2 62964.8 7 g 104 /min 96 % 96 % 97.4 [degF] 165 mm[Hg] 79 mm[Hg] Nikki Beavers MA [facility] 4 12:59:07 Social History Question Answer Notes LastModified by Organizat ion Details LastModified Time Tobacco Smoking Status Current Every Day Smoker has used Chantix Not [facility] 12/18/2019 03:36:34 Do You Have An Advance Directive? Yes [email or web address] Information not available 12/28/2021 What Is Your Level Of Alcohol Consumption? Occasional [id number] Information not available 12/18/2019 Is Blood Transfusion Acceptable In An Emergency? Yes [id number] Information not available 12/18/2019 What Is Your Level Of Caffeine Consumption? Moderate 2-3 Cups [place] Daily Information not available 12/28/2021 How Much Tobacco Do You Chew? None [id number] Information not available 12/18/2019 Are You Currently Employed? No Retired [id number] Information not available 12/18/2019 What Type Of Diet Are You Following? REGULAR [id number] Information not available 12/18/2019 Which Illicit Or Recreational Drugs Have You Used? None [id number] Information not available 12/18/2019 Do You Or Have You Ever Used E-cigarettes Or Vape? 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 With Others (in 1999) [email or web address] Information not available 12/28/2021 Do You Take [...] Or Greater Than 100 Degrees Fahrenheit? No [email or web address] Information not available 11/21/2019 Are You Or Anyone In Your Household A Health Care Provider Or Emergency Responder? No [email or web address] Information not available 11/21/2019 To The Best Of Your Knowledge Have You Been In Close Proximity To Any Individual Who Tested Positive For COVID-19? No [email or web address] Information not available 11/21/2019 What Was The Date Of Your Most Recent Tobacco Screening? 01/03/2024 [email or web address] Information not available 01/03/2024 How Many Children Do You Have? 2 Son And Daughter (Vanessa) [id number] Information not available 12/18/2019 Seat Belts Used Routinely Yes Information not available 12/28/2021 Are You Sexually Active? No [id number] Information not available 12/18/2019 Smoke Alarm In Home Yes [email or web address] Information not available 12/28/2021 At What Age Did You Start Smoking Tobacco? 18 [id number] Information not available 12/18/2019 Are You Passively Exposed To Smoke? Yes [email or web address] Information not available 09/26/2014 Do You Or Have You Ever Used Smokeless Tobacco? Never Used Smokeless Tobacco [email or web address] Information not available 12/20/2019 How Much Tobacco Do You Smoke? 1 PPD [email or web address] Information not available 08/13/2022 Do You Use Sunscreen Routinely? No [id number] Information not available 12/18/2019 How Many Years Have You Smoked Tobacco? 58 [id number] Information not available 12/18/2019 Sex: Unknown Functional Status Question Answer Note LastModified by Organization D etails LastModified Time Are you able to walk? [email or web address] Information not available 12/28/2021 Are you able to care for yourself? Yes [id number] Information not available 12/18/2019 What is your exercise level? Moderate golf [id number] Information not available 12/18/2019 Mental Status None recorded. Family History Relationship Description Onset Age of this Age Resolved Age Notes LastModified by Organization Details LastModified Time Father Malignant tumor of lung 89 [email or web address] Not available 10:30:02 Maternal Uncle Malignant neoplastic disease [email or web address] Not available 12/28 13:37:29 Sister Hyperlipidem ia [email or web address] Not available 12/28 13:37:29 Sister Hypertensive disorder [...] virus, trivalent, preservative 5 completed Loretta lindo [facility] 07/25/2019 14:36:02 Pneumococcal conjugate PCV 13 5 completed Not Available [facility] 03/03/2019 02:21:36 COVID-19, mRNA, LNP-S, PF, 30 mcg/0.3 mL dose 1 [facility] 15:04:35 COVID-19, mRNA, LNP-S, PF, 30 mcg/0.3 mL dose 1 [facility] 15:04:35 Novel [id number], preservative-free 0 completed NILDA Gupta [facility] 03/18/2021 15:04:35 Influenza, split virus, trivalent, preservative 6 completed NILDA Gupta [facility] 03/18/2021 15:04:35 Influenza, split virus, trivalent, preservative 9 completed NILDA Gupta [facility] 03/18/2021 15:04:35 Influenza, split virus, trivalent, preservative 8 completed NILDA Gupta [facility] 03/18/2021 15:04:35 Influenza, split virus, trivalent, preservative 7 completed NILDA Gupta, [facility] 03/18/2021 15:04:35 COVID-19, mRNA, LNP-S, PF, 30 mcg/0.3 mL dose 1 [facility]18[facility]21 15:04:35 Influenza, split virus, trivalent, preservative 5 [facility] 13:28:07 Influenza, high-dose, quadrivalent, PF 2 [facility] 12/28/[facility]21 13:49:24 COVID-19, mRNA, LNP-S, bivalent, PF, 30 mcg/0.3 mL dose 2 completed NILDA Gupta, [facility] 12/28/2021 13:49:24 COVID-19, mRNA, LNP-S, PF, bar-sucrose, 30 mcg/0.3 mL 3 completed NOHEMY Mccann, [facility] 02/09/2023 14:59:02 Influenza, high-dose, trivalent, PF 6 completed Not Available [facility] 03/03/2019 02:22:03 Influenza, high-dose, trivalent, PF 7 completed Not Available [facility] 03/03/2019 02:22:21 pneumococcal polysaccharide PPV23 8 completed NILDA Gupta [facility] 03/18/2021 15:04:35 Td (adult), 2 Lf tetanus toxoid, preservative free, adsorbed 6 completed NILDA Castle [facility] 06/01/2021 13:28:07 Influenza, split virus, trivalent, preservative 2 completed Loretta lindo, [facility] 07/25/2019 14:36:02 Tdap 3 completed Loretta Ward null, [facility] 07/25/2019 14:36:02 Influenza, split virus, trivalent, preservative 3 completed Loretta Ward null, [facility] 07/25/2019 14:36:02 Influenza, high-dose, trivalent, PF 8 completed Not Available [facility] 03/03/2019 02:22:14 Influenza, high-dose, trivalent, PF 9 completed Not Available [facility] 03/03/2019 02:22:09 Influenza, high-dose, quadrivalent, PF 0 completed Candace Owens MD [address], [address], [facility] 11/21/2019 14:49:12 Influenza, high-dose, quadrivalent, PF 1 completed Aisha Miles MA null, [facility] 11/26/2020 14:59:14 Td (adult), 2 Lf tetanus toxoid, preservative free, adsorbed 2 completed Candace Owens MD [address], [address], [facility] 12/29/2021 09:10:21 Influenza, high-dose, quadrivalent, PF 3 completed Candace Owens MD [address], [address], [facility] 12/30/2022 08:35:20 Past Encounters Encounter ID Performer Location Encounter Start Date Encounter Closed Date Diagnosis/Indication Diagnosis SNOMED-CT Code Diagnosis ICD10 Code Diagnosis Note [id number] Candace Owens MD Main Office [address] [address] 09/05/2013 10:02:42 09/05/2013 11:45:20 Adult health examination 282301156 Essential hypertension 95565246 Pure hypercholesterolemia 513447934 level running high since she stopped her meds; she will restart and we will recheck level in 3-6 months Major depr essive disorder 566094610 we will refer her for counseling [id number] [place] [address] 03/16/2010 00:00:00 [id number] [employer] [address] [facility],[address] [place] [address] 06/22/2010 00:00:00 [id number] [employer] [address] [facility],[address] [place] [address] 07/30/2010 00:00:00 [id number] [employer] [address] [facility],[address] [place] [address] 10/30/2010 00:00:00 [id number] [employer] [address] [facility],[address] [place] [address] 12/01/2010 00:00:00 [id number] [employer] [address] [facility],[address] [place] [address] 02/16/2011 00:00:00 [id number] [employer] [address] [facility] [place] [address] 02/18/2011 00:00:00 [id number] [employer] [address] [facility],[address] [place] [address] 03/04/2011 00:00:00 [id number] [employer] [address] [facility],[address] [place] [address] 06/08/2011 00:00:00 [id number] [employer] [address] [facility] [place] [address] 06/18/2011 00:00:00 [id number] [employer] [address] [facility] [place] [address] 08/10/2011 00:00:00 [id number] [employer] [address] [facility],[address] [place], [place] [address] 10/07/2011 00:00:00 [id number] [employer] [address] [facility] [place], [place] [address] 01/11/2012 00:00:00 [id number] auto[employer] lemuele [address] [facility] [place], [place] [address] 02/17/2012 00:00:00 [id number] [employer] laxmi [address] [place] [address],[address] [place], [place] [address] 09/04/2012 00:00:00 [id number] [employer] laxmi [address] [place] [address],[address] [place], [place] [address] 03/08/2013 00:00:00 [id number] Mariah Kcregina Main Office [address] [place] [address] [place] [address] 03/27/2014 15:12:43 03/27/2014 16:11:40 Essential hypertension 62647966 Pure hypercholesterolemia 892060504 unable to tolerate statins. We will try tricor and she will recheck her lipids in 3 months. Allergic rhinitis 41482871 she will take an OTC antihistam ine and use Flonase on a regular basis (at least for two weeks) to see if that helps with her symptoms. Cough 01752271 possibly from her ACEI but she does not want to stop. The cough is more likely coming from smoking and PND. [id number] Candace Owens MD Main Office [address] [place] [address] [place] [address] 09/04/2014 14:16:23 09/04/2014 14:59:05 Cough 19300224 Sx x 3 weeks, Instructed to STOP augmentin, and take full course of zpak, she should take full course of all antibiotic s in order to prevent recurrence and /or resistant bacteria. Symptomati c treatment- lots of fluids, rest, tea with honey, OTC cough drops/ cough med as needed, humidifier as needed [id number] Main Office [address] [place] [address] [place] [address] 09/26/2014 10:39:22 09/26/2014 12:08:37 Adult health examination 830675445 Administra tion of pneumococcal vaccine 59480023 Tobacco de pendence syndrome 70304166 Diarrhea 43472342 Pure hypercholesterolemia 422189073 unable to tolerate statins. We will try tricor and she will recheck her lipids in 3 months. Contusion of toenail 39351255 [id number] Candace Owens MD Main Office [address] [address] [place] [address] 04/03/2015 15:00:17 04/03/2015 16:15:54 Essential hypertension 19407113 I10 good control with current mgmt. Major depr essive disorder 021881854 F33.9 currently in remission Pure hypercholesterolemia 395862675 E78.0 She will go back on the [employer] n and we will check her labs again at he next visit. Gastroesop hageal reflux disease 499892344 K21.9 Allergic conjunctivitis 784674541 H10.13 Insomnia 949196577 G47.0 0 Neck pain 20442099 M54.2 [id number] Candace Owens MD Main Office [address] [address] [place] [address] 05/27/2015 10:42:10 05/27/2015 11:33:52 Dysuria 03802814 R30.0 we will treat this as a UTI but if her symptoms persist we will get a CT scan to r/o stones or diverticul tis both of which are less likely since her pain is bilateral. It is also possible that this is muscular since she has recently increased her activity level. Increased frequency of urination 804667791 R35.0 [id number] [facility] [employer] Main Office [address] [address] [place] [address] 06/06/2015 10:24:23 06/06/2015 11:46:44 Anterior knee pain 805879232 M25.569 [id number] Candace Owens MD Main Office [address] [address] [place] [address] 10/21/2015 10:45:09 10/21/2015 12:24:45 Essential hypertension 10624526 I10 good control with current mgmt. Anterior knee pain 93293 3006 M25.562 followed by [facility] and receives injections which help. Also got help from a 6-week course of PT and tramadol. Osteoarthritis 622623766 M19.[address] Hartley; her main problem is left hip pain and LBP. Adult heal th examination 065196331 Z00.00 She is UTD with her immunizati ons; has back, neck and left hip pain which are intermitte nt and helped with tramadol. At [facility] ed risk for falls 895858077 Z91.81 Advance di rective discussed with patient 422808874 Z71.89 Hearing loss 42601310 H9 1.93 Neck pain 78555419 M54.2 Low back pain 417460785 M54.5 Migraine 94607651 G43.90 9 [id number] Candace Owens MD Main Office [address] [facility] [address] [place] [address] 03/26/2016 13:27:48 03/26/2016 15:24:33 Neck pain 47194843 M54.2 She is followed by Dr Hartley and will also be making an appointmen t with Dr Mariano at [facility]. Allergic rhinitis 399747 04 J30.9 Flonase and a decongesta nt were not helpful. She gets a little help from singulair. Will try a different nasal spray and she will make an appointmen t with an certified pharmacy tech if she is not improving. Much of her lack of response is because she is a smoker. Low back pain 568571110 M54.5 Chest pain 79282624 R07. 9 She is a smoker and has high cholestero l and HTN. High risk for heart disease. [id number] Candace Owens MD Main Office [address] [facility] [address] [place] [address] 10/26/2016 13:27:57 10/26/2016 15:01:59 Adult health examination 742008293 Z00.00 She is UTD with her immunizati ons; has back, neck and left hip pain which are intermitte nt and helped with tramadol. Due for a colonoscop y in 2019 Influenza vaccine needed 1006050562 106 Z23 Screening for malignant neoplasm of lung 793050182 Z12.2 Pure hypercholesterolemia 482819340 E78.00 unable to tolerate statins. Cramp in l ower leg associated with rest 598738440 G47.62 Advised hydration and stretching before bed. Neck pain 17362531 M54.[address] She is followed by Dr Hartley and has also been seen by Dr Mariano at [facility]. [id number] Candace Owens MD Main Office [address] [facility] [address] [place] [address] 01/19/2017 13:54:55 01/19/2017 15:19:19 Cramp in lower limb 817039742 R25.2 This is probably idiopathic but she is concerned that something serious may be wrong because of the persistenc e and the lack of a sustained response to various treatments . I encouraged quitting smoking and doing regular stretching exercises. Spinal stenosis is an unlikely etiology since she golfs regularly and has no problems with walking. Claudication 528192695 I 73.9 Possibly secondary to her smoking. Low back pain 303793609 M54.5 [id number] Candace Owens MD Main Office [address] [place] [address] 05/02/2017 14:54:30 05/02/2017 16:19:43 Essential hypertension 21218255 I10 Running a little high. No changes at this time. Migraine 76203129 G43.90 9 Acute sinusitis 74921310 J01.90 Hyperlipidemia 80672829 E78.5 Cramp in lower limb 4499 59679 R25.2 Helped with vitamin B12. [id number] Candace Owens MD Main Office [address] [place] [address] 06/02/2017 14:36:30 06/02/2017 15:35:10 Pain in lower limb 90072812 M79.661 Unclear etiology for her right leg pain. Seen by vascular and had normal studies. Gets pain when golfing. Neck pain 36283329 M54.2 Degenerati ve changes in cervical spine. Seen last year and had injections which helped but pain has returned. Anterior t ibial stress syndrome 289548891 S86.891A right sided. [id number] Candace Owens MD Main Office [address] [address] [facility] [place] [address] 11/01/2017 09:54:08 11/01/2017 11:22:02 Adult health examination 074083294 Z00.00 She is UTD with her immunizati ons (except due for a flu); has back, neck and left hip pain which are intermitte nt and helped with tramadol. Due for a colonoscop y in 2018 Influenza vaccine needed 1879563529 106 Z23 Neck pain 02740647 M54.2 Degenerati ve changes in cervical spine. has had injections and PT in the past. Essential hypertension 33293033 I10 Running a little high. No changes at this time. Insomnia G47.0 0 Cough 76535119 R05 possibly from her ACEI but she does not want to stop. The cough is more likely coming from smoking and PND. [id number] Candace Owens MD Main Office [address] [facility] [address] [place] [address] 05/02/2018 10:00:50 05/02/2018 11:15:29 Essential hypertension 16585220 I10 A little high but acceptable . No changes. Neck pain 89484018 M54.2 Degenerati ve changes in cervical spine. has had injections and PT in the past. Cough 00014081 R05 Probably from smoking and PND. May also have COPD given her smoking hx. Insomnia G47.0 0 Acute sinusitis 29273328 J01.90 Pain in le ft lower limb 445679699 M79.605 Left groin pain secondary to labral tear. Seen by Dr Montalvo at [facility]. [id number] Candace Owens MD Main Office [address] [facility] [address] [place] [address] 07/19/2018 09:45:19 07/19/2018 11:25:01 Neck pain 73810850 M54.2 Degenerati ve changes in cervical spine. has had injections and PT in the past. Not a surgical problem. Screening for malignant neoplasm of colon 508754363 Z12.11 Inguinal pain 101898175 R10.2 This has been chronic over the last 8 years. Seen by physiatry and [facility]. [facility] recommends an U/S to r/o a hernia as well as an injection and will see her back if the pain persists. Insomnia G47.0 0 She is looking for halcion for sleep but I told her that it was no longer appropriat e to be taking this long-term because of potential SE's. I offered a sleep medicine referral but she declined. Essential hypertension 57515652 I10 High today but she does not want to make changes. She will follow her BP and call if it remains above 140 systolic. 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 She will try a low-dose ambien instead. Pain in le ft lower limb 291416856 M79.[address] Montalvo at [facility] with whom I also spoke. He feels that the problem is in her lumbar spine. He will also do vascular studies since the symptoms come on with exercise and resolve with rest and she is a lifetime smoker. Essential hypertension 59022368 I10 High today but she does not want to make changes. She will follow her BP and call if it remains above 140 systolic. Gastroesop hageal reflux disease 479716422 K21.9 [id number] Candace Owens MD Main Office [address] [address] 11/06/2018 10:06:05 11/06/2018 11:21:19 Adult health examination 202516851 Z00.00 She is UTD with her immunizati ons (except due for a flu); has back, neck and left hip pain which are intermitte nt and helped with tramadol. Due for a colonoscop y in 2019 Cough 08282656 R05 Probably from smoking and PND. May also have COPD given her smoking hx. Anxiety 36276640 F41.9 Neck pain 81990552 M54.2 Degenerati ve changes in cervical spine. has had injections and PT in the past. Not a surgical problem. Influenza vaccine needed 0453193964 106 Z23 Allergic conjunctivitis 948643238 H10.13 Major depr essive disorder 685283470 F32.0 Tobacco de pendence syndrome 76535324 F17.200 [id number] Candace Owens MD Main Office [address] [address] 12/04/2018 10:16:33 12/04/2018 11:47:32 Major depressive disorder 602562068 F32.0 She will clam picker the celexa and start dada. Tight chest 84953824 R07 .89 This occurs at rest but not with activity. Had a normal ETT a couple of years ago. Will repeat if her symptoms persist or they start occuring with activity. [id number] Candace Owens MD Main Office [address] [address] 12/25/2018 08:57:09 12/25/2018 10:08:40 Major depressive disorder 841243383 F32.0 She is taking celexa prn and states that it works well for her this way. This may be a placebo effect. I explained to her that it's not a prn med and that to work well she should be taking it daily. It is unlikely that she will do this. Allergic conjunctivitis 196441119 H10.13 Gastroesop hageal reflux disease 619446267 K21.9 Only uses this med prn and not very often. [id number] Candace Owens MD Main Office [address] [place] [address], [place] [address] 07/25/2019 13:23:44 07/25/2019 15:57:28 Essential hypertension 41981655 I10 High today but she does not want to make changes. She will follow her BP and call if it remains above 140 systolic. Allergic conjunctivitis 185734542 H10.13 Hyperlipidemia 75576918 E78.5 Major depr essive disorder 038308750 F32.0 She is taking celexa prn and states that it works well for her this way. This may be a placebo effect. I explained to her that it's not a prn med and that to work well she should be taking it daily. It is unlikely that she will do this. Nasal congestion 2650541 0 R09.81 Chronic cough 97031335 R 05 This is probably from smoking. We will no longer be prescribin g codeine cough syrup. [id number] Candace Owens MD Main Office [address] [facility] [address] [place] [address] 11/21/2019 13:34:34 11/21/2019 14:58:50 Adult health examination 754563897 Z00.00 She is UTD with her immunizati ons (except due for a flu); has back, neck and left hip pain which are intermitte nt and helped with tramadol and an occasional tylenol w/codeine. Had a colonoscop y September 2018. Influenza vaccine needed 1773266118 106 Z23 Insomnia 229545946 G47.0 0 Hyperlipidemia 56256595 E78.5 Cough 61432207 R05 Probably from smoking and PND. May also have COPD given her smoking hx. Allergic rhinitis 543866 04 J30.9 Flonase and a decongesta nt were not helpful. She gets a little help from singulair. Will try a different nasal spray and she will make an appointmen t with an certified pharmacy tech if she is not improving. Much of her lack of response is because she is a smoker. Essential hypertension 43958385 I10 Has been running high. We will increase her lisinopril from 10 to 20 mg and recheck in 1 month. Tobacco de pendence syndrome 38585130 F17.200 Neck pain 78644537 M54.2 Degenerati ve changes in cervical spine. has had injections and PT in the past. Not a surgical problem. Benign varun plasm of adrenal gland 22272005 D35.[address] Givens [id number] Candace Owens MD Main Office [address] [facility] [address] [place] [address] 12/20/2019 13:19:52 12/20/2019 14:07:46 Essential hypertension 32290322 I10 We increased her lisinopril from to 10 to 20 mg with an improvemen t in her BP. Insomnia 145368849 G47.0 0 We will look into the reason she is having trouble filling her zolpidem script. [id number] Candace Owens MD Main Office [address] [facility] [address] [place] [address] 06/19/2020 09:53:17 06/19/2020 11:02:24 Essential hypertension 95810396 I10 We increased her lisinopril from to 10 to 20 mg with an improvemen t in her BP. Allergic rhinitis 732305 04 J30.9 On meds. This is a bad year for her. Continue current meds. Neck pain 11316554 M54.2 Degenerati ve changes in cervical spine. has had injections and PT in the past. Not a surgical problem. Cough 42922274 R05 Probably from smoking and PND. May also have COPD given her smoking hx. Insomnia 293798183 G47.0 0 Stable on low-dose zolpidem [id number] Netta Guerra MD Main Office [address] [facility] [address] [facility] [place] [address] 07/07/2020 10:39:36 07/07/2020 11:21:25 Pre-surgery evaluation 865173418 Z01.818 1. Pre-Surgic al Evaluation /Surgical Clearance [...] procedure risk. Bilateral cataracts 9572 2003 H26.9 [id number] Candace Owens MD Main Office [address] [facility] [address] [facility] [place] [address] 11/26/2020 12:39:17 11/26/2020 14:04:44 Adult health examination 311062022 Z00.00 She is UTD with her immunizati ons (except due for a flu); has back, neck and left hip pain which are intermitte nt and helped with tramadol and an occasional tylenol w/codeine. Had a colonoscop y September 2018 due again in 2023. Influenza vaccine needed 0034589194 106 Z23 Skin lesion 87633657 L98 .9 Scaly lesion at left wrist. Essential hypertension 89945132 I10 Good control. Continue current mgmt. Gastroesop hageal reflux disease [id number] K21.9 Only uses this med prn and not very often. Hyperlipidemia 97874825 E78.5 Stable on current meds. Insomnia 891816488 G47.0 0 Stable on low-dose zolpidem but her insurance will only cover a 90-day supply for the year. We put in a PA but this was denied. Major depr essive disorder 823990788 F32.0 She is taking celexa prn and states that it works well for her this way. This may be a placebo effect. I explained to her that it's not a prn med and that to work well she should be taking it daily. It is unlikely that she will do this. Benign varun plasm of adrenal gland 36011152 D35.[address] Givens who referred her back here. She is due for a f/u CT in 2022. 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 Discussed treatment with neurontin as well as SE's. [id number] Candace Owens MD Main Office [address] [facility] [address] [facility] [place] [address] 06/01/2021 12:47:38 06/02/2021 10:34:39 Essential hypertension 00057029 I10 BP mildly elevated but she did not take her meds today. She will monitor and call if it continues to run high. Allergic conjunctivitis 183380734 H10.13 Hyperlipidemia 70344313 E78.5 Stable on current meds. Major depr essive disorder 939927606 F32.0 She is taking celexa prn and states that it works well for her this way. This may be a placebo effect. I explained to her that it's not a prn med and that to work well she should be taking it daily. It is unlikely that she will do this. Anterior knee pain 12197 3006 M25.562 followed by [facility] and receives injections which help. [id number] Candace Owens MD Main Office [address] [facility] [address] [place] [address] 12/28/2021 13:36:45 12/28/2021 15:08:36 Adult health examination 298893672 Z00.00 She is UTD COVID, flu and pneumonia vaccines. She is due for a tetanus vaccine which she will receive today. Had a colonoscop y September 2018 due again in 2023. Acquired t tub washer finger 1827033 M65.30 Involving both index fingers. Requires a tetanus booster 190548172 Z23 Essential hypertension 56478524 I10 Good control; continue current mgmt. Hyperlipidemia 86789297 E78.5 Stable on current meds. Check fasting lipid level. Allergic rhinitis 814417 04 J30.9 On meds. This is a bad year for her. 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 Allergic conjunctivitis 930669481 H10.13 - pt has been complainin g of watery eyes, provided with azelastine dry drop Allergic rhinitis 856335 04 J30.9 - advised patient to switch from zyrtec to claritin as it may provide better relief- if no improvemen t pt was that she can switch back [id number] JIMBO VAUGHN MD Main Office [address] [facility] [address] [place] [address] 08/13/2022 10:36:49 08/13/2022 11:07:07 Lightheadedness 060560349 R42 - improved, chronic problem- EKG showed on 05/27/2022: sinus bradycardi a with PVCs, no QTC prolongati on> no PVCs noted on last EKG done in 06/2020- Holter monitor was normal- as holter monitor was normal and patient is no longer experienci ng symptoms, no further cardiology work-up needed. if symptoms re-occur will recommend vestibular therapy. Temporoman dibular joint disorder 03815338 M26.609 - still a problem for the patient, worse on the right side- pt advised to follow-up with her dentist Tobacco de pendence syndrome 34938044 F17.200 - pt today expresses that she would like to quit smoking- in the past tried chantex with little improvemen t- pt has a 64 pack year smoking history (1ppd for the last 64 years)- to help patient quit started pain on on patches: 21mg for 6 weeks, 14mg for 2 weeks and 7mg for 2 weeks Hyperlipidemia 04517977 E78.5 Z00.00 - ordered per request of patient [id number] Candace Owens MD Main Office [address] [place] [address] 12/29/2022 12:31:51 12/29/2022 14:03:00 Adult health examination 181242711 Z00.00 She is UTD COVID, flu and pneumonia vaccines. She is due for a tetanus vaccine which she will receive today. Had a colonoscop y September 2018 due again in 2023. Gastroesop hageal reflux disease 857501052 K21.9 Only uses this med prn and not very often. Influenza vaccine needed 2721672299 106 Z23 Essential hypertension 62876670 I10 We will stop her ACEI because of a dry cough. Hyperlipidemia 79952074 E78.5 Stable on current meds. Check fasting lipid level. Spinal yifan nosis of lumbar region 32421214 M48.061 Benign varun plasm of adrenal gland 35358702 D35.[address] Givens who referred her back here. She is due for a f/u CT. Major depr essive disorder 208066936 F32.0 She is taking celexa prn and states that it works well for her this way. This may be a placebo effect. I explained to her that it's not a prn med and that to work well she should be taking it daily. It is unlikely that she will do this. [id number] Candace Owens MD Main Office [address] [place] [place] [address] 02/09/2023 14:21:06 02/09/2023 15:46:22 Essential hypertension 97657046 I10 Her cough resolved after stopping the ACEI and she is tolerating the SARB well with a BP under control. Spinal yifan nosis of lumbar region 22501788 M48.061 Gets relief from tylenol w/codeine. Low back pain 057716654 M54.51 Starting PT in a couple of weeks. Seeing Dr Montalvo again next month. [id number] STEFANIE NORIEGA Main Office [address] [place] [place] [address] 03/17/2023 10:33:22 03/17/2023 11:10:01 Chronic diarrhea 328664908 K52.9 was seen at [facility] on 03/04/23 for symptoms of fecal incontinen [...] 2019 Spinal yifan nosis of lumbar region 42809228 M48.061 MRI completed at [facility] which revealed lumbar spine degenerati on, foraminal narrowing greatest at L3-L4, L4-L5 levels, severe spinal canal narrowing, crowding upon exiting L3 nerve roots, and L3-L4 moderate diffuse disc bulge-Was told by neurosurge ry team to consider surgical interventi on for chronic lumbar stenosis due to symptoms of neurogenic claudicati on; pt is set to f/u with neurology outpatient for further discussion [id number] Candace Owens MD Main Office [address] [place] [address] 07/06/2023 12:50:34 07/06/2023 13:30:26 Essential hypertension 22881395 I10 Her cough resolved after stopping the ACEI and she is tolerating the SARB well with a BP under control at home but is high when she is here in the office. She does not want to make any changes. Hyperlipidemia 74202630 E78.5 Stable on current meds. Gastroesop hageal reflux disease 384258747 K21.9 Only uses this med prn and not very often. Insomnia 309459232 G47.0 0 Stable on low-dose zolpidem but her insurance will only cover a 90-day supply for the year. We put in a PA but this was denied. Spinal yifan nosis of lumbar region 56349683 M48.061 Gets relief from tylenol w/codeine. She has had a recent exacerbati on and is going to have a procedure at [facility] by Dr Srivastava which sounds like a guided injection [id number] Candace Owens MD Main Office [address] [place] [address] 01/03/2024 12:50:26 01/03/2024 14:10:24 Adult health examination 647574024 Z00.00 She is UTD COVID, flu, tetanus and pneumonia vaccines.H ad a colonoscop y earlier this year and does not need any additional colonoscop ies.Had a mammogram last month. Tobacco de pendence syndrome 00023709 F17.200 We discussed quitting. Low back pain 825755647 M54.[address] Montalvo again next month. Insomnia 815092101 G47.0 0 Stable on low-dose zolpidem but her insurance will only cover a 90-day supply for the year. We put in a PA but this was denied. Hyperlipidemia 43335792 E78.5 Stable on current meds. Spinal yifan nosis of lumbar region 11803133 M48.061 Recently (December 2023) had an epidural by Dr Montalvo on right side which has helped especially with radiation pain. Exposure to lead 0018343 336 3320886 Z77.011 Cough 51298280 R05.9 . The cough is more likely coming from smoking and PND. Health Concerns Section Related Observation LastModified by Organization Detai ls LastModified Time None Recorded Concern Status LastModified by Organization Details LastModified Time None Recorded Advance Directives Directive Y: Payers Encounter Date Sequence Insurance Name Policy Number Policy Gabriel Covered Member ID Gabriel Member ID Guarantor Name 12/29/2022 1 [place] [employer] Danae F Soja [id number] Danae F Soja 12/29/2022 2 [place] 111 Danae F Soja [id number] Danae F Soja 02/09/2023 1 [place] [employer] Danae F Soja [id number] Danae F Soja 02/09/2023 2 [place] 111 Danae F Soja [id number] Danae F Soja 03/17/2023 1 [place] [employer] Danae F Soja [id number] Danae F Soja 03/17/2023 2 [place] 111 Danae F Soja [id number] Danae F Soja 07/06/2023 1 [place] [employer] Danae F Soja [id number] Danae F Soja 07/06/2023 2 [facility] 111 Danae Narayanan [id number] Danae Narayanan 01/03/2024 1 [place] [facility] Danae Narayanan [id number] 13 Danae Narayanan 01/03/2024 2 [facility] 111 Danae Narayanan [id number] Danae Narayanan Notes Date Note Type Note [...] is an improvement. Candace Owens MD [address], [address], [facility] 12/30/2022 08:49:32 3 text/html Hypertension F/UReported bypatient.Associated [...] and is followed by Dr Montalvo at [facility]. He has recommended PT which she will be starting next week. Candace Owens MD [address], [address], [facility] 02/10/2023 09:55:58 4 text/html Nikki is an 83yr old F who presents for chronic diarrhea x5 weeks. Was seen at [facility] on 03/04/23 for bowel incontinence. MRI was [...] urine, or repeat incontinence. STEFANIE NORIEGA [address] [facility] [address], [place], [address], [facility] 03/20/2023 17:43:52 4 text/html HyperlipidemiaReported bypatient.Notes:Stable on [...] and is followed by Dr Montalvo at [facility]. She recently had an exacerbation of her pain with radiation into her right leg. She was recently seen by Dr Montalvo at [facility] and is scheduled to see Dr Srivastava to have a procedure done. Candace Owens MD [address] [facility] [address], [place], [address], [facility] 07/07/2023 19:32:06 4 text/html Medicare Annual Wellness [...] which [place]. [place] [address] [place] [address], [phone], [facility] 01/04/2024 16:38:07 OBGyn Episode No OBEpisode recorded.
== END 2024-05-17 15:21 | disposition home or self-care (01) ==
LOC: HO.HNS 14:04
PROVIDERS: PCP Internal Medicine; Visit Provider Physician Assistant
DX: M50.90 Cervical disc disorder, unspecified, unspecified cervical region (principal); M48.061 Spinal stenosis, lumbar region without neurogenic claudication
CPT/HCPCS: 99024

== ENCOUNTER → 2024-05-17 15:23 | Outpatient (BNV) | payer MEDICARE, BC, SELFPAY | PROVIDERS: PCP Internal Medicine; Visit Provider Radiology Diagnostic Radiology | DX: M47.812 Spondylosis without myelopathy or radiculopathy, cervical region (principal) | CPT/HCPCS: 72050 ==

== ENCOUNTER 2024-06-08 11:27 | Outpatient (AMB) | payer MEDICARE, BC, SELFPAY ==
--- NOTE | 2024-06-08 11:38 | A.SPINEOV_ITS ---
Intake Visit Reasons: 3wk f/u after 1st post op Intake Note: Ms. Narayanan is here today for her 3wk F/u after the 1st post op. Product Support Representative Required: No Allergies No Known Allergies Allergy (Verified 06/08/24 11:39) Assessment & Plan Assessment & Plan (1) Lumbar stenosis: Code(s): M48.061 - Spinal stenosis, lumbar region without neurogenic claudication Category: Medical (2) Cervical disc disorder: Code(s): M50.90 - Cervical disc disorder, unspecified, unspecified cervical region Category: Medical Plan Dear Dr Owens, Mrs Narayanan is here in follow-up. About 3 months ago she underwent L3-[address] Daniels. She had beautiful relief of her stenosis symptoms. She is here today for her final postoperative visit, and to review some cervical spine x-rays that we did at her last visit. In the interim since our last visit, she did played 9 holes of golf and had no issues. She does have a chronic left-sided mid lumbar pain which she has had for many many years which responds beautifully to tramadol. The pain comes on if she is overactive. It sounds muscular in nature, she does not take the tramadol every day but when she needs it is nice to have it. With regard to the neck issues, she has pain on the right side of her suboccipital region into her upper neck. At times it can be intense causing her to stop her activities but it is only intermittent and generally not disabling the sense that it prevents her from doing much. Her x- rays show severe disc degeneration at C3-4 and C4-5. She has an MRI report from last year confirming that she has multiple areas of disc degeneration. At this time since the symptoms are not disabling, I told her she should not pursue surgical intervention on this, but rather just treat it symptomatically. From the surgical standpoint, she has no specific limitations. She can golf as she likes and resume activities without any specific restrictions. She was asking about getting another prescription for tramadol, but I told her that Dr. Daniels only does a brief prescription after surgery and does not continue this chronically and that she would have to go back to your office to get refills on this. Thank you for allowing us to care for your patient Peewee Bauers, MD, PhD [facility] Coding Level of Care Code Global (21015) Diagnoses Lumbar stenosis M48.061 Cervical disc disorder M50.90
--- OUTSIDE RECORDS SUMMARY | 2024-06-08 12:25 | XMS_ITS | Data Portability ---
Author Organization [facility], Main Office Address [address] [place] [id number] Care Team Providers Care Oil And Gas Principal Name Role Phone CANDACE OWENS Primary Care Provider KENNEDY MONTALVO Hotel Baggage Handler MICHAEL HARTLEY Patient Care Coordinator NAHUM SOSA Penetration Tester [phone] [facility] in[facility] TRINY GIVENS Referring Provider [phone] BRIDGETTE ARAUJO Orthopedic Surgeon Assessment Encounter Date [...] Organization Details Last Modified Time Details Appointments FOLLOW UP 30MIN 2024 11:00A M Candace cunningham MD Not available Not available Not available Lab CMP, serum or plasma 2023 024 BIANKA [facility] (Centralized Electronic Ordering - All Locations), Patient Can Go To The Location Of Their Choice, [id number] 01/04/2024 14:06:45 lipid panel, serum 2023 024 BIANKA [facility] (Centralized Electronic Ordering - All Locations), Patient Can Go To The Location Of Their Choice, [id number] 01/04/2024 14:06:47 lead, quant, venous blood 2023 SENECA [facility] (Centralized Electronic Ordering - All Locations), Patient Can Go To The Location Of Their Choice, [id number] 01/04/2024 14:06:47 CBC w/ auto diff 2023 SENECA [facility] (Centralized Electronic Ordering - All Locations), Patient Can Go To The Location Of Their Choice, 03/17/2023 15:57:26 TSH, serum or plasma 2023 SENECA [facility] (Centralized Electronic Ordering - All Locations), Patient Can Go To The Location Of Their Choice, 03/18/2023 02:14:49 celiac disease compreh ensive panel, serum 2023 [facility] Patient Can Go To The Location Of Their Choice, 03/18/2023 21:06:41 unliste d lab - calprot ectin,f ecal 2023 SENECA [facility] (Centralized Electronic Ordering - All Locations), Patient Can Go To The Location Of Their Choice, 03/23/2023 00:06:14 C-react braeden protein , quantit ative, serum or plasma 2023 SENECA [facility] (Centralized Electronic Ordering - All Locations), Patient Can Go To The Location Of Their Choice, 03/18/2023 02:30:39 C diff toxin A+B, qualita tive, stool 2023 BIANKA [facility], [address], [address], [place], [address], 03/19/2023 09:38:52 unliste d lab - giardia lamblia , direct detecti on, EIA 2023 [facility]ANK[facility], [address], [address], [place], [address], 03/21/2023 14:07:15 unliste d lab - routine culture , stool 2023 024 [facility], [address] [facility], [address], [place], [address], 03/25/2023 14:09:21 lipid panel, serum 2022 023 BIANKA [facility] (Centralized Electronic Ordering - All Locations), Patient Can Go To The Location Of Their Choice, [facility] 12/29/2022 23:16:25 CMP, serum or plasma 2022 023 [facility]ANKA [facility] (Centralized Electronic Ordering - All Locations), Patient Can Go To The Location Of Their Choice, [id number] 12/29/2022 23:16:23 CBC w/ auto diff 2022 023 [facility]ANKA [facility] (Centralized Electronic Ordering - All Locations), Patient Can Go To The Location Of Their Choice, [facility] 12/29/2022 20:10:27 Referral None recorde d. Procedures None recorde d. Surgeries None recorde d. Imaging CT, abdomen , w/o contras t - Right adrenal mass. Please evaluat e for stabili ty. 2022 023 [email or web address] [facility], [address], [facility], [place], [address], 2023 09:41:48 Medication Orders codeine 10 mg-guai fenesin 100 mg/5 mL oral liquid 2023 024 [facility][id number], [address] [place] [address], [address], 01/03/2024 16:52:25 acetami nophen 300 mg-code ine 30 mg tablet 2023 024 [facility]0859, [address] [place], [address], 07/06/2023 16:41:03 zolpide m 5 mg tablet 2023 024 [facility]0859, [address] [place], [address], 07/06/2023 16:41:03 losarta n 50 mg-hydr ochloro thiazid e 12.5 mg tablet 2022 023 [email or web address] [facility], [address] [facility], [place], [address], 03/02/2023 11:56:54 pantopr azole 20 mg tablet, delayed release 2022 023 [email or web address] [facility], [address] [facility] [place], [address], 02/09/2023 15:02:34 Patient TargetsNo targets recorded. Patient Instructions Encounter Date Encounter Id Patient Instructions Last Modified By Organization Details Last Modified Time 12/29/2022 [id number] lumbar spinal stenosis: care instructions acennerazzo Not [...] female>75yrs) acennerazzo Not available 12/29/2022 13:55:00 02/09/2023 [id number] lumbar spinal stenosis: care instructions acennerazzo Not [...] pressure acennerazzo Not available 02/09/2023 15:22:50 07/06/2023 [id number] lumbar spinal stenosis: care instructions acennerazzo Not available 07/06/2023 16:40:59 insomnia: care instructions acennerazzo Not available 07/06/2023 16:40:58 gastroesophageal reflux disease (GERD): care instructions acennerazzo Not available 07/06/2023 13:04:55 high blood pressure: care instructions acennerazzo Not available 07/06/2023 13:04:55 learning about h igh blood pressure acennerazzo Not available 07/06/2023 13:04:55 high cholesterol : care instructions acennerazzo Not available 07/06/2023 13:04:55 01/03/2024 [id number] deciding about using medicines to quit smoking [...] Abnormal Flag Note LastModifiedBy Organization Detail LastModifiedTime 12/30/19 23 12/29/2022 COMPL ETE BLOOD COUNT WBC 9.0 K/mm3 [...] 12/30/1912/29/2022 COMPR EHENS BRAEDEN METAB OLIC PANL BUN [...] 12/30/1912/29/2022 COMPR EHENS BRAEDEN METAB OLIC PANL sodium 139 mmol/ L (133-1 45) Not Available [facility] (Centralized Electronic Ordering - All Locations) Patient Can Go To The Location Of Their Choice, 12/29/2022 23:16:22 12/30/19 23 12/29/2022 COMPR EHENS BRAEDEN METAB OLIC PANL potassium [...] 12/29/2022 COMPR EHENS BRAEDEN METAB OLIC PANL bilirubin,to sallie 0.3 mg/dL (0-1.2 ) Not Available [facility] (Centralized Electronic Ordering - All Locations) Patient Can Go To The Location Of Their Choice, 12/29/2022 23:16:22 12/30/19 23 12/29/2022 COMPR EHENS BRAEDEN METAB OLIC PANL total [...] Location Of Their Choice, 12/29/2022 23:16:22 12/30/1912/29/2022 LIPID PANEL cholesterol, total 182 mg/dL (<200) Not Available [facility] (Central[facility] Ordering - All Locations) Patient Can Go To The Location Of Their Choice, 12/29/2022 23:16:24 12/30/1912/29/2022 LIPID PANEL triglyceride 176 mg/dL (<150) high Not Available [facility] ([facility] Ordering - All Locations) Patient Can Go To The Location Of Their Choice, 12/29/2022 23:16:24 12/30/1912/29/2022 LIPID PANEL HDL chol 54 mg/dL (>39) Not Available [facility] (Centralized Electronic Ordering - All Locations) Patient Can Go To The Location Of Their Choice, 12/29/2022 23:16:24 12/30/1912/29/2022 LIPID PANEL LDL cholesterol, calculated 93 mg/dL (0-130 ) Not Available [facility] (Centralized Electronic Ordering - All Locations) Patient Can Go To The Location Of Their Choice, 12/29/2022 23:16:24 12/30/1912/29/2022 LIPID PANEL non HDL cholesterol (calc) 128 mg/dL (<160) Not Available [facility] (Centralized [facility] Ordering - All Locations) Patient Can Go To The Location Of Their Choice, 12/29/2022 23:16:24 03/17/1903/17/2023 COMPL ETE CBC WITH DIFF WBC 7.3 K/mm3 (4.0-1 1.0) Not Available [facility] (Centralized Electronic Ordering - All Locations) Patient Can Go To The Location Of Their Choice, 03/17/2023 15:57:26 03/17/1903/17/2023 COMPL ETE CBC WITH DIFF RBC 4.64 M/mm3 (4.20- 5.40) Not Available [facility] (Centralized Electronic Ordering - All Locations) Patient Can Go To The Location Of Their Choice, 03/17/2023 15:57:26 03/17/1903/17/2023 COMPL ETE CBC WITH DIFF HGB 13.7 [...] 24 03/17/2023 COMPL ETE CBC WITH DIFF automated NRBC [...] 03/17/2023 COMPL ETE CBC WITH DIFF neut # 4.4 K/mm3 (1.3-7 .0) Not Available [facility] (Centralized Electronic Ordering - All Locations) Patient Can Go To The Location Of Their Choice, 03/17/2023 15:57:26 03/17/19 24 03/17/2023 COMPL ETE CBC WITH DIFF lymph # [...] 24 03/17/2023 COMPL ETE CBC WITH DIFF baso # 0.0 K/mm3 (0.0-0 .1) Not Available [facility] (Centralized Electronic Ordering - All Locations) Patient Can Go To The Location Of Their Choice, 03/17/2023 15:57:26 03/17/1903/17/2023 COMPL ETE CBC WITH DIFF abs. imm gran 0.0 K/mm3 Not Available [facility] ([facility] Ordering - All Locations) Patient Can Go To The Location Of Their Choice, 03/17/2023 15:57:26 03/17/1903/17/2023 COMPL ETE CBC WITH DIFF neut 60.0 % (44-76 ) Not Available [facility] (Centralized Electronic Ordering - All Locations) Patient Can Go To The Location Of Their Choice, 03/17/2023 15:57:26 03/17/1903/17/2023 COMPL ETE CBC WITH DIFF lymph 30.2 % (15-43 ) Not Available [facility] (Centralized Electronic Ordering - All Locations) Patient Can Go To The Location Of Their Choice, 03/17/2023 15:57:26 03/17/1903/17/2023 COMPL ETE CBC WITH DIFF monocyte 7.4 [...] The Location Of Their Choice, 03/18/2023 02:14:49 03/17/19 24 03/18/2023 C-MARU CTIVE PROTE IN C-reactive protein <0.3 [...] by [facility], [address], [place] [address] Not Available [facility] (Centralized Electronic Ordering - All Locations) Patient Can Go To The Location Of Their Choice, 03/18/2023 21:06:41 03/18/19 24 03/19/2023 C. DIFFI CILE TOXIN C. difficile toxin [...] The Location Of Their Choice, 03/19/2023 09:38:52 03/18/19 24 03/21/2023 GIARD IA LAMBL IA, DIREC T DETEC TION EIA giardia lamblia Ag, EIA NEGATI VE Refer ence range : NEGAT BRAEDEN Test perfo rmed by [facility], [address], [place] [address] Not Available [facility] (Centralized Electronic Ordering - [...] indic ated Test perfo rmed at [facility] , [address] [place] [address] , [place] [address] Not Available [facility] (Centralized Electronic Ordering - All Locations) Patient Can Go To The Location Of Their Choice, 03/23/2023 00:06:14 03/18/1903/18/2023 ROUTI NE CULTU RE, STOOL stool culture source STOOL Not Available [facility] ([facility] Ordering - All Locations) Patient Can Go To The Location Of Their Choice, 03/25/2023 14:09:20 03/18/1903/25/2023 ROUTI NE CULTU RE, STOOL salmonella/s higella screen Final report Not Available [facility] (Centralized Electronic Ordering - All Locations) Patient Can Go To The Location Of Their Choice, 03/25/2023 14:09:20 03/18/1903/25/2023 ROUTI NE CULTU RE, STOOL campylobacte r culture Final report Not Available [facility] (Centralized Electronic Ordering - All Locations) Patient Can Go To The Location Of Their Choice, 03/25/2023 14:09:20 03/18/1903/25/2023 ROUTI NE CULTU RE, STOOL E coli shiga toxin EIA NEGATI VE Refer ence range : NEGAT BRAEDEN Test perfo rmed by [facility], [address], [place] [address] Not Available [facility] (Centralized Electronic Ordering - All Locations) Patient Can Go To The Location Of Their Choice, 03/25/2023 14:09:20 03/18/19 24 03/25/2023 SALMO DARWIN /SHIG CATRACHO RESUL TS screen result 1 Commen t (NOTE ) No Salmo darwin or Shige lla recov ered. Test perfo rmed by [facility] , [address], [place] [address] Not Available [facility] (Centralized Electronic Ordering - All Locations) Patient Can Go To The Location Of Their Choice, 03/25/2023 14:09:42 03/18/19 24 03/25/[address] RESUL TS culture result 1 Commen t (NOTE ) No Campy lobac ter speci es isola cristiano. Test perfo rmed by [facility], [address], [place] [address] Not Available [facility] (Centralized Electronic Ordering - All Locations) Patient Can Go To The Location Of Their Choice, [address] 03/25/2023 14:09:43 08/26/19 24 08/26/2023 CBC w/ auto diff WBC 7.6 Not Available [address], [address], 08/29/2023 13:24:38 08/26/19 24 08/26/2023 CBC w/ auto diff RBC 4.57 Not Available [address], [address], 08/29/2023 13:24:38 08/26/19 24 08/26/2023 CBC w/ auto diff HGB 13.9 Not Available [address], [address], 08/29/2023 13:24:38 08/26/19 24 08/26/2023 CBC w/ auto diff HCT 42.1 Not Available [address], [address], 08/29/2023 13:24:38 08/26/19 24 08/26/2023 CBC w/ auto diff plt 209 Not Available [address], [address], 08/29/2023 13:24:38 01/03/20 24 01/04/2024 COMP. METAB OLIC PANEL (14) glucose 83 mg/dL 70-99 normal Not Available [facility] ([facility]) [address] [place], [address], 01/04/2024 14:06:45 01/03/20 24 01/04/2024 COMP. METAB OLIC PANEL (14) BUN 22 mg/dL 8-27 normal Not Available [facility] ([facility]) [address] [place], [address], 01/04/2024 14:06:45 01/03/20 24 01/04/2024 COMP. METAB OLIC PANEL (14) creatinine 0.82 mg/dL 0.57-1 .00 normal Not Available [facility] ([facility]) [address] [place], [address], 01/04/2024 14:06:45 01/03/20 24 01/04/2024 COMP. METAB OLIC PANEL (14) eGFR 72 mL/mi n/1.7 3 >59 normal Not Available [facility] ([facility]) [address] [place], [address], 01/04/2024 14:06:45 01/03/20 24 01/04/2024 COMP. METAB OLIC PANEL (14) BUN/creatini ne ratio 27 12-28 normal Not Available [facility] ([facility]) [address] [place], [address], 01/04/2024 14:06:45 01/03/20 24 01/04/2024 COMP. METAB OLIC PANEL (14) sodium 142 mmol/ L 134-14 4 normal Not Available [facility] ([facility]) [address] [place], [address], 01/04/2024 14:06:45 01/03/20 24 01/04/2024 COMP. METAB OLIC PANEL (14) potassium 4.5 mmol/ L 3.5-5. 2 normal Not Available [facility] ([facility]) [address] [place], [address], 01/04/2024 14:06:45 01/03/20 24 01/04/2024 COMP. METAB OLIC PANEL (14) chloride 103 mmol/ L 96-106 normal Not Available [facility] ([facility]) [address] [place], [address], 01/04/2024 14:06:45 01/03/20 24 01/04/2024 COMP. METAB OLIC PANEL (14) carbon dioxide, total 21 mmol/ L 20-29 normal Not Available [facility] ([facility]) [address] [place], [address], 01/04/2024 14:06:45 01/03/20 24 01/04/2024 COMP. METAB OLIC PANEL (14) calcium 9.8 mg/dL 8.7-10 .3 normal Not Available [facility] ([facility]) [address] [place], [address], 01/04/2024 14:06:45 01/03/20 24 01/04/2024 COMP. METAB OLIC PANEL (14) protein, total 7.0 g/dL 6.0-8. 5 normal Not Available [facility] ([facility]) [address] [place], [address], 01/04/2024 14:06:45 01/03/20 24 01/04/2024 COMP. METAB OLIC PANEL (14) albumin 4.4 g/dL 3.7-4. 7 normal Not Available [facility] ([facility]) [address] [place], [address], 01/04/2024 14:06:45 01/03/20 24 01/04/2024 COMP. METAB OLIC PANEL (14) globulin, total 2.6 g/dL 1.5-4. 5 Not Available [facility] ([facility]) [address] [facility] [place], [address], 01/04/2024 14:06:45 01/03/20 24 01/04/2024 COMP. METAB OLIC PANEL (14) bilirubin, total 0.2 mg/dL 0.0-1. 2 normal Not Available [facility] ([facility]) [address] [facility] [place], [address], 01/04/2024 14:06:45 01/03/20 24 01/04/2024 COMP. METAB OLIC PANEL (14) alkaline phosphatase 92 IU/L 44-121 normal Not Available [facility] ([facility]) [address] [facility] [place], [address], 01/04/2024 14:06:45 01/03/20 24 01/04/2024 COMP. METAB OLIC PANEL (14) AST (SGOT) 18 IU/L 0-40 normal Not Available [facility] ([facility]) [address] [facility] [place], [address], 01/04/2024 14:06:45 01/03/20 24 01/04/2024 COMP. METAB OLIC PANEL (14) ALT (SGPT) 16 IU/L 0-32 normal Not Available [facility] ([facility]) [address] [facility] [place], [address], 01/04/2024 14:06:45 01/03/20 24 01/04/2024 LIPID PANEL cholesterol, total 181 mg/dL 100-19 9 normal Not Available [facility] ([facility]) [address] [facility] [place], [address], 01/04/2024 14:06:47 01/03/20 24 01/04/2024 LIPID PANEL triglyceride s 188 mg/dL 0-149 above high normal Not Available [facility] ([facility]) [address] [place], [address], 01/04/2024 14:06:47 01/03/20 24 01/04/2024 LIPID PANEL HDL cholesterol 69 mg/dL >39 normal Not Available [facility] ([facility]) [address] [facility], [place], [address], 01/04/2024 14:06:47 01/03/20 24 01/04/2024 LIPID PANEL VLDL cholesterol jean pierre 31 mg/dL 5-40 Not Available [facility] ([facility]) [address] [place], [address], 01/04/2024 14:06:47 01/03/20 24 01/04/2024 LIPID PANEL LDL chol calc ([facility]) 81 mg/dL 0-99 Not Available [facility] (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) [address] [facility], [place], [address], 01/04/2024 14:06:47 01/03/20 24 01/04/2024 LEAD, BLOOD (ADUL T) lead, blood (adult) 1.7 ug/dL 0.0-3. 4 Testi ng perfo rmed by Induc tireid y coupl ed plasm a/Mas s Spect romet ry. Sylive sis by induc tireid y coupl ed plasm a/mas s spect romet ry (ICP/ MS) Envir onmen sallie Expos ure: WHO Recom menda tion <5.0 Occup ation al Expos ure: OSHA Lead Std 40.0 AMBAR 30.0 Detec tion Limit = 1.0 Not Available [facility] ([facility]) [address] [facility], [place], [address], 01/04/2024 14:06:47 02/28/19 25 02/29/2024 CBC w/ auto diff WBC 7.9 Not Available [facility] [address], [address], 03/01/2024 16:44:40 02/28/19 25 02/29/2024 CBC w/ auto diff RBC 4.55 Not Available [address], [address], 03/01/2024 16:44:40 02/28/19 25 02/29/2024 CBC w/ auto diff HGB 14.0 Not Available [facility] [address], [address], 03/01/2024 16:44:40 02/28/19 25 02/29/2024 CBC w/ auto diff HCT 41.8 Not Available [address], [address], 03/01/2024 16:44:40 02/28/19 25 02/29/2024 CBC w/ auto diff plt 219 Not Available [address], [address], 03/01/2024 16:44:40 12/30/19 23 12/29/2022 mm digit [...] (Benig n) Lay letter mailed to mesfin baker WSN: [id number] Orderi ng Physic rose: Candace Farooq Dictat ed By: Chelsea Eastman MD Dictat ed Date/T stephania: 12:11 pm Review ed By: Chelsea Eastman MD Signed By: Chelsea Eastman MD Signed /T stephania: 12:11 pm Transc ribed By: CSB Transc riptio n Date/T stephania: 11:45 am Birads : Mesfin baker Class: Outpat ient [email or web address] [facility] (Outpt Imaging) [address] [place] [address], [address], 12/29/2022 13:29:23 01/13/20 23 01/12/2023 CT, abdom en, w/o contr ast CT Abd W/O Contra st Reason : 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 [...] abdome n on noncon trast exam. WSN: [id number] Orderi ng Physic rose: Candace Farooq Dictat ed By: Michael Jones MD Dictat ed Date/T stephania: 2:26 pm Review ed By: Michael Jones MD Signed By: Michael Jones MD Signed Date/T stephania: 2:26 pm Transc ribed By: DEMETRA Transc ribed Date/T stephania: 2:22 pm Patien t Class: Outpat ient [facility] (Outpt Imaging) [address] [facility], [place], [address], 01/13/2023 09:43:07 04/15/19 24 04/15/2023 MRI, cervi [...] or protru sions as descri bed below. JANITORIAL TECH IOR FOSSA AND CORD: Visual ized principal scientist ior fossa is normal . The cervic [...] t disc bulgin g. C3-C4: There are principal scientist ior endpla te spurs and a minima [...] is a minima l disc bulge and principal scientist ior endpla te spurs flatte freya the [...] is a minima l disc bulge and principal scientist ior endpla te spurs flatte freya the ventra l thecal sac and remode ling the cord with mild canal stenos is, not signif icantl y change d since prior examin ation. There are uncove rtebra l and facet joint spurs result ing in modera te right and severe left forami nal stenos is, simila r to prior examin ation. C6-C7: There are principal scientist ior endpla te spurs and a minima [...] signal within the cervic al cord. WSN: [id number] Orderi ng Physic rose: Candace Farooq Dictat ed By: Makenzie Granados MD Dictat ed Date/T stephania: 3:45 pm Review ed By: Makenzie Granados MD Signed By: Makenzie Granados MD Signed Date/T stephania: 3:45 pm Transc ribed By: DEMETRA Transc ribed Date/T stephania: 3:36 pm Patien t Class: Outpat ient [id number] [facility] (Outpt Imaging) [address] [place], [address], 04/20/2023 16:34:34 04/18/19 24 04/15/2023 imagi ng/di agnos tic resul t No observ ation record ed. [facility] [address] [facility], [place], [address], 05/06/2023 19:03:32 11/30/19 24 11/30/2023 MAMMO , [...] (Benig n) Lay letter mailed to mesfin t WSN: [id number] Orderi ng Physic rose: Candace Farooq Dictat ed By: Kurt Conklin MD Dictfilemon ed Date/T stephania: 3:28 pm Review ed By: Kurt Conklin MD Signed By: Kurt Conklin MD Signed Date/T stephania: 3:28 pm Transc ribed By: CSB Transc riptio n Date/T stephania: 3:23 pm Birads : Mesfin t Class: Outpat ient [address] (Outpt Imaging) [address] [place], [address], 12/01/2023 09:37:10 03/01/19 25 02/27/2024 bone densi ty No observ ation record ed. [place] [id number] [facility] [address], [address], 03/02/2024 11:29:37 03/01/19 25 02/27/2024 bone densi ty No observ ation record ed. [address], [address], 03/02/2024 11:27:17 03/01/19 25 02/27/2024 bone densi ty No observ ation record ed. [address], [address], 03/02/2024 11:27:35 03/01/19 25 02/27/2024 bone densi ty No observ ation record ed. [address], [address], 03/02/2024 11:27:45 03/01/19 25 02/27/2024 bone densi ty No observ ation record ed. [address], [address], 03/02/2024 11:27:54 03/01/19 25 02/27/2024 bone densi ty No observ ation record ed. [address], [address], 03/02/2024 11:28:00 03/01/19 25 02/27/2024 bone densi ty No observ ation record ed. [address], [address], 03/02/2024 11:28:09 03/01/19 25 02/27/2024 bone densi ty No observ ation record ed. [email or web address] [facility] [address], [address], 03/02/2024 11:28:15 03/01/19 25 02/27/2024 bone densi ty No observ ation record ed. [email or web address] [address], [address], 03/02/2024 11:28:24 03/01/19 25 02/27/2024 bone densi ty No observ ation record ed. [address], [address], 03/02/2024 11:28:32 Result Notes None recorded. 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 IF THIS NOT WORKING THEN CAN STEP UP TO EYE DROPS AND/OR NASAL SPRAY NEEDED; RECORDED 10/07/19 12 10:10AM BY DANNY KENNEY ON/MONI lindo [facility] 6 12:48:49 Elevated blood-pr essure reading without diagnosi s of hyperten lashell [id number] Completed 201108/28/2013 RECORDED 09/16/19 12 9:41AM BY CANDACE STALEY MD, ANNOTATI ON/ADDEN DUM Peewee JacintoAlegavi ro null, [facility] 6 12:48:49 Screenin jeanne for malignan t neoplasm of breast Completed 201108/28/2013 RECORDED 08/26/19 12 5:32PM BY CANDACE STALEY MD, ANNOTATI ON/ADDEN DUM Peewee JacintoAlessand ro null, [facility] 6 12:48:49 Chest pain [id number] Completed 201108/28/2013 IMPRESSI ON: NO FURTHER CP; RECORDED 10/07/19 12 10:10AM BY DANNY KENNEY ON/ADDEN DUM Peweee JacintoAlessand ro null, [facility] 6 12:48:49 Finding by method [id number] Completed 201108/28/2013 IMPRESSI ON: MOST LIKELY NONSPECI FIC BUT A LUNG PROBLEM COULD CAUSE LUQ AB PAIN SO WILL DO CXR; RECORDED 09/16/19 12 9:41AM BY CANDACE STALEY MD, DANNY ON/ADDEN DUM Peewee Culver ro null, [facility] 6 12:48:50 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 THIS MAY BE NORMAL CHANGES BUT WE WILL CONTINUE TO PURSUE A MEDICAL ETIOLOGY WITH A SECOND ENDO OPINION REGARDBLAIR Beckman HER PRESUMED ADRENAL ADENOMA. ; RECORDED 01/11/20 12 11:07AM BY DANNY KENNEY ON/ADDEN MISAEL go null, [facility] 6 12:48:49 Influenz a vaccine needed [id number] 06 Completed 201208/28/2013 RECORDED 12/13/19 13 3:40PM BY FLACA DORMAN MA, NURSE VISIT Peewee lindo, [facility] 6 12:48:49 Gastroes ophageal reflux disease 580346363 Active Loretta Ward belgica, [facility] 0 14:36:21 Pure hypercho lesterol emia 864534550 Completed 11/03/2016 Will restart statin September 2014 Candace Owens MD [address] [facility] [address], [place], [address] , [facility] 7 17:13:15 Hypercho lesterol emia 02462458 Completed 201308/28/2013 RESOLVED DATE: 03/08/19 14; ; RECORDED 03/08/19 14 10:01AM BY DANNY KENNEY ON/[facility], [facility] 6 12:48:49 Incision al hernia 871898202 Completed 201108/28/2013 RECORDED 10/07/19 12 11:56AM BY CANDACE STALEY MD, DANNY ON/[facility] go null, [facility] 6 12:48:49 Hip pain 73192106 Completed 201308/28/2013 RECORDED 03/08/19 14 10:01AM BY DANNY KENNEY ON/MONI go null, [facility] 6 12:48:49 Left upper quadrant pain 752795051 Completed 201108/28/2013 IMPRESSI ON: MOST LIKELY CAUSE IS GASTRITI S OR PUD. DOUBT SPLEEN ISSUE BUT WITH HER RECENT VASCULAR PROCEDUR E (SHE SAYS IT WAS RELATED TO ARTERY GOING TO SPLEEN) SHE HAD DONE WILL CHECK PLATELET S IF PROTONIX WORKS WOULD DO 8 WEEK COURSE AND THEN TRIAL OFF OF IT; RECORDED 10/07/19 12 10:10AM [facility] Peewee lindo, [facility] 6 12:48:49 Low back pain [id number] Active Possibke spinal stenosis that does well with injectio n. Followed by rheum and has also seen [facility]. Candace Owens MD [address] [facility] [address], [facility] [place], [address] , [facility] 2 10:10:36 Screenin g for malignan t neoplasm of breast Completed 03/27/2014 Peewee lindo, [facility] 6 12:48:49 Backache [id number] Completed 201308/28/2013 RECORDED 03/08/19 14 10:01AM BY DANNY KENNEY ON/ADDEN DUM Peewee go null, [facility] 6 12:48:49 Migraine 98379053 Active Loretta lindo, [facility] 0 14:36:21 Migraine 03792110 Completed 201308/28/2013 RECORDED 03/08/19 14 10:01AM BY DANNY KENNEY ON/[facility] Peewee lindo, [facility] 6 12:48:49 Neck pain 29134599 Active Seen by Dr Carrillo Nov 2016 and schedule d for facet injectio n; probable OA. Seen by Dr Mims May 2018 who feels that this does not warrent any aggressi ve care and tried to reassure the patient. Loretta lindo, [facility] 0 14:36:21 Active or passive immuniza tion Completed 201008/28/2013 RECORDED 04/02/19 11 11:01AM BY CRISTINA WARD, HISTORIC AL SUMMARY Peewee go null, [facility] 6 12:48:49 Administ ration of tetanus vaccine Completed 201108/28/2013 RECORDED 08/26/19 12 5:32PM BY CANDACE STALEY MD, ANNOTATI ON/[facility] Peewee Culver ro null, [facility] 6 12:48:49 Osteoart hritis 675494805 Active Lorettakanika Ward null, [facility] 0 14:36:20 Disorder of bone and articula r cartilag e 650149915 Active Loretta Ward null, [facility] 0 14:36:21 Perforat ion of tympanic membrane 35842378 Active Loretta Ward null, [facility] 0 14:36:21 Pneumoni a 612412652 Completed 201108/28/2013 IMPRESSI ON: BETTER WITH LEVAQUIN , QUIT SMOKING; RECORDED 09/16/19 12 9:41AM BY CANDACE STALEY MD, ANNOTATI ON/[facility] Peewee go null, [facility] 6 12:48:49 Polymyal alisa rheumati ca 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 Active Loretta Ward null, [facility] 0 14:36:20 Adult health examinat ion Completed 201308/28/2013 RECORDED 03/08/19 14 10:01AM BY DANNY KENNEY ON/[facility] Peewee go null, [facility] 6 12:48:49 Sciatica 61304940 Completed 201108/28/2013 RECORDED 10/07/19 12 11:56AM BY CANDACE STALEY MD, ANNOTATI ON/[facility] Peewee Culver ro null, [facility] 6 12:48:49 Screenin g for malignan t neoplasm of cervix Completed 201108/28/2013 RECORDED 08/26/19 12 5:32PM BY CANDACE STALEY MD, ROSA MATI ON/ADDEN DUM Peewee Culver ro null, [facility] 6 12:48:49 Screenin g for malignan t neoplasm of colon Completed 03/27/2014 Peewee Culver ro null, [facility] 6 12:48:50 Sprain of hand 33053874 Completed 201108/28/2013 RECORDED 10/07/19 12 10:10AM BY DANNY KENNEY ON/ADDEN DUM Peewee Wattsand ro null, [facility] 6 12:48:49 Administ ration of diphther ia and tetanus vaccine Completed 201208/28/2013 RECORDED 09/05/19 13 8:22AM BY DANNY KENNEY ON/ADDEN DUM Peewee Wattsand ro null, [facility] 6 12:48:49 Tobacco dependen ce syndrome 24090294 Completed 201308/28/2013 RECORDED 03/08/19 14 10:01AM BY DANNY KENNEY ON/ADDEN DUM Peewee Wattsand ro null, [facility] 6 12:48:49 Major depressi ve disorder 253630572 Active This is a minor issue and is ankurvin hamzah lindo, [facility] 0 14:36:21 Disorder of adrenal gland 96967555 Completed 201109/20/2013 RECORDED 10/07/19 12 11:55AM BY CANDACE STALEY MD, ANNOTARUNA ON/ADDEN DUM Peewee Culver ro null, [facility] 6 12:48:49 Allergic rhinitis 14083533 Completed 201109/20/2013 IMPRESSI ON: START WITH ZYRTEC. IF THIS NOT WORKING THEN CAN STEP UP TO EYE DROPS AND/OR NASAL SPRAY NEEDED; RECORDED 10/07/19 12 10:10AM BY ROSA M KENNEYATI ON/ADDEN DUM Peewee Hunter'Alessand ro null, [facility] 6 12:48:49 Elevated blood-pr essure reading without diagnosi s of hyperten lashell 081469724 Completed 201109/20/2013 RECORDED 09/16/19 12 9:41AM BY CANDACE STALEY MD, ANNOTATI ON/ADDEN DUM Peewee Hunter'Alessand ro null, [facility] 6 12:48:49 Screenin g for malignan t neoplasm of breast Completed 201109/20/2013 RECORDED 08/26/19 12 5:32PM BY CANDACE STALEY MD, ANNOTATI ON/ADDEN DUM Peewee Hunter'Alessand ro null, [facility] 6 12:48:49 Chest pain 17685611 Completed 201109/20/2013 IMPRESSI ON: NO FURTHER CP; RECORDED 10/07/19 12 10:10AM BY DANNY KENNEY ON/ADDEN DUM Peewee Hunter'Alessand ro null, [facility] 6 12:48:49 Finding by method [id number] Completed 201109/20/2013 IMPRESSI ON: MOST LIKELY NONSPECI FIC BUT A LUNG PROBLEM COULD CAUSE LUQ AB PAIN SO WILL DO CXR; RECORDED 09/16/19 12 9:41AM BY CANDACE STALEY MD, DANNY ON/ADDEN DUM Peewee Hunter'Alessand ro null, [facility] 6 12:48:50 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 ; RECORDED 01/11/20 12 11:07AM BY DANNY KENNEY ON/ADDEN DUM Peewee Culver ro null, [facility] 6 12:48:49 Influenz a vaccine needed [id number] 06 Completed 201209/20/2013 RECORDED 12/13/19 13 3:40PM BY FLACA DORMAN MA, NURSE VISIT Peewee go null, [facility] 6 12:48:49 Hypercho lesterol emia 26796460 Completed 201309/20/2013 RESOLVED DATE: 03/08/19 14; ; RECORDED 03/08/19 14 10:01AM BY DANNY KENNEY ON/ADDEN MISAEL Culver ro null, [facility] 6 12:48:49 Incision al hernia 925783270 Completed 201109/20/2013 RECORDED 10/07/19 12 11:56AM BY CANDACE STALEY MD, DANNY ON/ADDPRATIBHA go null, [facility] 6 12:48:49 Hip pain 65652421 Completed 201309/20/2013 RECORDED 03/08/19 14 10:01AM BY DANNY KENNEY ON/ADDEN MISAEL Culver ro null, [facility] 6 12:48:49 Left upper quadrant pain 716870942 Completed 201109/20/2013 IMPRESSI ON: MOST LIKELY CAUSE [...] DANNY KENNEY ON/ADDEN MISAEL Culver ro null, [facility] 6 12:48:49 Backache 877924063 Completed 201309/20/2013 RECORDED 03/08/19 14 10:01AM BY DANNY KENNEY ON/ERASTOPRATIBHA JacintoBremiracle ro null, [facility] 6 12:48:49 Active or passive immuniza tion Completed 201009/20/2013 RECORDED 04/02/19 11 11:01AM BY CRISTINA WARD, HISTORIC AL SUMMARY Peewee Culver ro null, [facility] 6 12:48:49 Administ ration of tetanus vaccine Completed 201109/20/2013 RECORDED 08/26/19 12 5:32PM BY CANDACE STALEY MD, DANNY ON/ADDPRATIBHA go null, [facility] 6 12:48:49 Pneumoni a [id number] Completed 201109/20/2013 IMPRESSI ON: BETTER WITH LEVAQUIN , QUIT SMOKING; RECORDED 09/16/19 12 9:41AM BY CANDACE STALEY MD, DANNY ON/[facility] 6 12:48:49 Adult health examinat ion Completed 201309/20/2013 RECORDED 03/08/19 14 10:01AM BY DANNY KENNEY ON/[facility] go null, [facility] 6 12:48:49 Sciatica 21171764 Completed 201109/20/2013 RECORDED 10/07/19 12 11:56AM BY CANDACE STALEY MD, DANNY ON/MONI go null, [facility] 6 12:48:49 Screenin g for malignan t neoplasm of cervix Completed 201109/20/2013 RECORDED 08/26/19 12 5:32PM BY CANDACE STALEY MD, DANNY ON/ADDEN DUM Peewee Culver ro null, [facility] 6 12:48:49 Sprain of hand 70152359 Completed 201109/20/2013 RECORDED 10/07/19 12 10:10AM BY DANNY KENNEY ON/ADDEN DUM Peewee Wattsand ro null, [facility] 6 12:48:49 Administ ration of diphther ia and tetanus vaccine Completed 201209/20/2013 RECORDED 09/05/19 13 8:22AM BY DANNY KENNEY ON/ADDEN DUM Peewee Wattsand ro null, [facility] 6 12:48:49 Tobacco dependen ce syndrome 80576767 Completed 201309/20/2013 RECORDED 03/08/19 14 10:01AM BY DANNY KENNEY ON/ADDEN DUM Peewee Wattsand ro null, [facility] 6 12:48:49 Disorder of adrenal gland 58878410 Completed 201109/21/2013 RECORDED 10/07/19 12 11:55AM BY CANDACE STALEY MD, DANNY ON/ADDEN DUM Peewee Culver ro null, [facility] 6 12:48:49 Allergic rhinitis 41407741 Completed 201109/21/2013 IMPRESSI ON: START WITH ZYRTEC. IF THIS NOT WORKING THEN CAN STEP UP TO EYE DROPS AND/OR NASAL SPRAY NEEDED; RECORDED 10/07/19 12 10:10AM BY DANNY KENNEY ON/ADDPRATIBHA Culver ro null, [facility] 6 12:48:49 Elevated blood-pr essure reading without diagnosi s of hyperten lashell 159908563 Completed 201109/21/2013 RECORDED 09/16/19 12 9:41AM BY CANDACE STALEY MD, DANNY ON/ADDEN DUM Peewee Culver ro null, [facility] 6 12:48:49 Screenin g for malignan t neoplasm of breast Completed 201109/21/2013 RECORDED 08/26/19 12 5:32PM BY CANDACE STALEY MD, ROSA MATI ON/ADDEN DUM Peewee Hunter'Alessand ro null, [facility] 6 12:48:49 Chest pain 63073133 Completed 201109/21/2013 IMPRESSI ON: NO FURTHER CP; RECORDED 10/07/19 12 10:10AM BY DANNY KENNEY ON/ADDEN DUM Peewee Hunter'Alessand ro null, [facility] 6 12:48:49 Finding by method [id number] Completed 201109/21/2013 IMPRESSI ON: MOST LIKELY NONSPECI FIC BUT A LUNG PROBLEM COULD CAUSE LUQ AB PAIN SO WILL DO CXR; RECORDED 09/16/19 12 9:41AM BY CANDACE STALEY MD, DANNY ON/[facility] Peewee Hunter'Alessand ro null, [facility] 6 12:48:50 Tietze's disease 46370757 Completed 201109/21/2013 RECORDED 10/07/19 12 10:10AM BY DANNY KENNEY ON/[facility] Peewee Hunter'Alessand ro null, [facility] 6 12:48:49 Malaise and fatigue 582161570 Completed 201109/21/2013 IMPRESSI ON: NO MEDICAL ETIOLOGY IS BEING FOUND. 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 ; RECORDED 01/11/20 12 11:07AM BY DANNY KENNEY ON/ADDPRATIBHA JacintoAlessand ro null, [facility] 6 12:48:49 Influenz a vaccine needed [id number] 06 Completed 201209/21/2013 RECORDED 12/13/19 13 3:40PM BY FLACA DORMAN MA, NURSE VISIT Peewee Culver ro null, [facility] 6 12:48:49 Hypercho lesterol emia 22578140 Completed 201309/21/2013 RESOLVED DATE: 03/08/19 14; ; RECORDED 03/08/19 14 10:01AM BY DANNY KENNEY ON/ADDEN DUM Peewee Culver ro null, [facility] 6 12:48:49 Incision al hernia 780780365 Completed 201109/21/2013 RECORDED 10/07/19 12 11:56AM BY CANDACE STALEY MD, DANNY ON/ADDEN DUM Peewee Culver ro null, [facility] 6 12:48:49 Hip pain 84016792 Completed 201309/21/2013 RECORDED 03/08/19 14 10:01AM BY DANNY KENNEY ON/ADDEN DUM Peewee Culver ro null, [facility] 6 12:48:49 Left upper quadrant pain 263771821 Completed 201109/21/2013 IMPRESSI ON: MOST LIKELY CAUSE [...] KENNEY ON/ADDEN DUM Peewee Culver ro null, [facility] 6 12:48:49 Backache 195451230 Completed 201309/21/2013 RECORDED 03/08/19 14 10:01AM BY DANNY KENNEY ON/ADDEN DUM Peewee Culver ro null, [facility] 6 12:48:49 Active or passive immuniza tion Completed 201009/21/2013 RECORDED 04/02/19 11 11:01AM BY CRISTINA WARD, HISTORIC AL SUMMARY Peewee Culver ro null, [facility] 6 12:48:49 Administ ration of tetanus vaccine Completed 201109/21/2013 RECORDED 08/26/19 12 5:32PM BY CANDACE STALEY MD, DANNY ON/ADDEN DUM Peewee Wattsand ro null, [facility] 6 12:48:49 Pneumoni a [id number] Completed 201109/21/2013 IMPRESSI ON: BETTER WITH LEVAQUIN , QUIT SMOKING; RECORDED 09/16/19 12 9:41AM BY CANDACE STALEY MD, DANNY ON/ADDEN DUM Peewee Wattsand ro null, [facility] 6 12:48:49 Adult health examinat ion Completed 201309/21/2013 RECORDED 03/08/19 14 10:01AM BY DANNY KENNEY ON/ADDEN DUM Peewee JacintoAlebrittand ro null, [facility] 6 12:48:49 Sciatica 77170684 Completed 201109/21/2013 RECORDED 10/07/19 12 11:56AM BY CANDACE STALEY MD, DANNY ON/ADDEN DUM Peewee Wattsand ro null, [facility] 6 12:48:49 Screenin g for malignan t neoplasm of cervix Completed 201109/21/2013 RECORDED 08/26/19 12 5:32PM BY CANDACE STALEY MD, DANNY ON/ADDEN DUM Peewee Culver ro null, [facility] 6 12:48:49 Sprain of hand 82301802 Completed 201109/21/2013 RECORDED 10/07/19 12 10:10AM BY DANNY KENNEY ON/ADDEN DUM Peewee Culver ro null, [facility] 6 12:48:49 Administ ration of diphther ia and tetanus vaccine Completed 201209/21/2013 RECORDED 09/05/19 13 8:22AM BY DANNY KENNEY ON/[facility] Macmiracle ro null, [facility] 6 12:48:49 Tobacco dependen ce syndrome 35304933 Completed 201309/21/2013 RECORDED 03/08/19 14 10:01AM BY DANNY KENNEY ON/MONI [facility] Peewee DimitriosHerlindamiracle ro null, [facility] 6 12:48:49 Allergic rhinitis 46093542 Active Loretta lindo [facility] 0 14:36:20 Cough 36434984 Completed 03/26/2016 Candace Owens MD [address] [address], [place], [address] , [facility] 8 10:37:43 Tobacco dependen ce syndrome 65787696 Active Trying to quit with chantix Loretta lindo [facility] 0 14:36:21 Diarrhea 66047332 Completed 201403/26/2016 NILDA Epstein [facility] 7 14:12:31 Contusio n of toenail 03525507 Active 2014 referred to podiatry Loretta lindo [facility] 0 14:36:20 Allergic conjunct ivitis 620055834 Completed 03/26/2016 NILDA Epstein [facility] 7 14:12:23 Insomnia 872650574 Active Loretta lindo [facility] 0 14:36:21 Dysuria 65832492 Completed 03/26/2016 NILDA Epstein [facility] 7 14:12:20 Increase d frequenc y of urinatio n 920237258 Completed 03/26/2016 NILDA Epstein, [facility] 7 14:12:16 Anterior knee pain 911132439 Active Loretta lindo, [facility] 0 14:36:20 Hyperlip idemia 39446628 Active 2016 Loretta lindo, [facility] 0 14:36:21 Osteopen ia 427370425 Active 2016 Last BMD 03/2103; BMD done July 2018, stable Loretta lindo, [facility] 0 14:36:21 Subacrom ial bursitis 73276874 Active 2016 Gets injectio ns at Rheum Loretta Ward belgica, [facility] 0 14:36:20 Aneurysm of splenic artery 44353130 Active 2017 Candace Owens MD [address], [place], [address] , [facility] 8 16:06:43 Cramp in lower limb 643484331 Active 2017 Loretta lindo, [facility] 0 14:36:21 Cough 69110281 Active 2017 Lorettakanika lindo, [facility] 0 14:36:21 Pain in left lower limb 906980324 Active 2017 Left groin pain since 2012. Followed by [facility]. Lorettakanika Ward belgica [facility] 0 14:36:21 Spinal stenosis of lumbar region 50277766 Active 2020 Followed by [facility] Last injectio n September 2022. Candace Owens MD [address], [place], [address] , [facility] 3 07:44:17 Hyperten lashellmanpreet baconi angel luis dobson 711787478 Active 2021 Accuheal th NILDA Gupta [facility] 2 09:47:37 Stenosin g tenosyno vitis 83195135 Active 2021 Bilatera l ring fingers; injected by hand surgeon. Candace Owens MD [address] [facility] [address] [address] , [facility] 2 09:32:43 Problem Notes None recorded. Procedures Surgical History Date Name Laterality Status Provider Name and Address Organization Details Recorded Time 02/26/19 25 Dxa bone density lisa vrt fx completed Suellen Unger [facility] 03/02/2024 11:27:12 11/30/19 24 Most Recent Mammogram completed Suellen Unger [facility] 12/01/2023 09:37:07 05/20/19 24 Colonoscopy completed Suellen Unger [facility] 05/20/2023 13:12:44 12/30/19 23 Mammogram screening completed Emerald Maldonado [facility] 12/29/2022 13:29:13 02/06/[address] of lungs completed Suellen Unger [facility] 02/05/2022 15:48:02 01/22/20 22 hand injection completed Suellen Unger [facility] 01/27/2022 10:26:37 07/01/19 22 Most Recent Bone Density completed Flower Wade MA [facility] 12/28/2021 13:48:13 07/01/19 22 Dxa bone density axial completed Flower Wade MA [facility] 07/31/2021 12:49:34 11/21/19 20 Six-Item Cognitive Test completed Aisha Miles MA [facility] 11/21/2019 14:14:21 11/07/19 19 Mini-Cog Test completed Mariah Hunt [facility] 11/06/2018 10:42:46 09/19/19 19 Date of Last Colonoscopy completed Loretta Mccoyilla [facility] 09/20/2018 14:58:46 08/16/19 19 Dxa bone density lisa vrt fx completed Mariah Hunt [facility] 08/16/2018 14:01:32 11/02/19 18 Mini-Cog Test completed Mariah Hunt [facility] 11/01/2017 10:16:51 10/27/19 17 Fall Risk Assessment completed Mariah Hunt [facility] 10/26/2016 14:03:31 10/27/19 17 Mini-Cog Test completed Mariah Hunt [facility] 10/26/2016 14:03:41 09/29/19 17 Orthopedic Surgery completed Haylee Fitzgerald [facility] 12/02/2016 15:50:50 10/21/19 16 Fall Risk Assessment completed Flaca Dorman MA [facility] 10/21/2015 11:05:22 10/21/19 16 Mini-Cog Test completed Flaca Dorman MA [facility] 10/21/2015 11:06:39 10/21/19 16 Advanced Care Planning completed Flaca Dorman MA [facility] 10/21/2015 10:59:15 06/11/19 16 Other completed Mariah Hunt [facility] 06/16/2015 11:30:32 09/27/19 15 Fall Risk Assessment completed Mariah Hunt [facility] 09/26/2014 11:16:38 09/27/19 15 Mini-Cog Test completed Mariah Hunt [facility] 09/26/2014 11:16:38 09/06/19 14 Fall Risk Assessment completed Mariah Hunt [facility] 09/05/2013 10:34:39 09/06/19 14 Mini-Cog Test completed Mariah Hunt [facility] 09/05/2013 10:34:39 06/15/19 14 Date of Last Pap Smear completed Mariah Hunt [facility] 09/05/2013 10:34:40 02/14/19 12 Hernia Repair completed Candace Owens MD [address], [place], [address], [facility] 09/05/2013 10:59:04 10/16/19 04 Carpal tunnel surgery completed Candace Owens MD [address], [place], [address], [facility] 10/26/2016 14:36:19 10/15/18 98 Partial removal of colon completed Candace Owens MD [address], [place], [address], [facility] 10/26/2016 14:34:54 02/14/18 92 Total hysterectomy completed Carla faulkner [facility] 03/26/2016 14:13:22 Imaging Results Imaging Date Name Status LastModified by Organiz atformerly [facility] Details LastModified Time 12/29/2022 mm digital mammo unilat left completed [email or web address] [facility] (Outpt Imaging) [address] [place], [address], 12/29/2022 13:29:23 01/12/2023 CT, abdomen, w/o contrast completed [facility] ([facility] Imaging) [address] [place], [address], 01/13/2023 09:43:07 04/15/2023 MRI, cervical spine, w/o contrast completed [email or web address] [facility] (Outpt Imaging) [address] [place], [address], 04/20/2023 16:34:34 04/15/2023 imaging/diagno stic result completed [facility] [address] [facility], [place], [address], 05/06/2023 19:03:32 11/30/2023 MAMMO, screening, digital, bilateral completed [email or web address] (Outpt Imaging) [address] [place], [address], 12/01/2023 09:37:10 02/27/2024 bone density [email or web address] [facility] [address] [place] [address], [address], 03/02/2024 11:29:37 02/27/2024 bone density completed [email or web address] [place] [address] [facility] [address] [place] [address], [id number], 03/02/2024 11:27:17 02/27/2024 bone density completed [place] [address] [facility] [address] [place] [address], [id number], 03/02/2024 11:27:35 02/27/2024 bone density [place] [address] [facility] [address] [place] [address], [id number], 03/02/2024 11:27:45 02/27/2024 bone density [place] [address] [facility] [address] [place] [address], [address]309, 03/02/2024 11:27:54 02/27/2024 bone density [place] [address] [facility] [address] [place] [address], [address], 03/02/2024 11:28:00 02/27/2024 bone density [place] [address] [facility] [address] [place] [address], [address], 03/02/2024 11:28:09 02/27/2024 bone density [place] [address] [facility] [address] [place] [address], [address], 03/02/2024 11:28:15 02/27/2024 bone density [place] [address] [facility] [address] [place] [address], [id number], 03/02/2024 11:28:24 02/27/2024 bone density completed [facility] [address] [place] [address], [id number], 03/02/2024 11:28:32 Procedure Notes None recorded. Medical Equipment None Reported. Allergies Allergen ID Allergen Name Allergen Category Reaction Reaction Severity Criticality Documentation Date Start Date Code Code System Note Provider Name and Address Organization Details Recorded Time 81831 atorvasta tin medicatio n Not available Not available Not available 07/25/2019 41584 RxNorm Mariah lindo, [facility] 0 13:42:54 3345 Lipitor medicatio n arthralgi a (joint pain) Not available Not available 08/28/2013 68818 5 RxNorm REACT ION: LEG PAIN HUI Marie [address] [address], [facility] [place], [address], [facility] 5 17:54:36 21624 house dust mite environme nt Not available Not available Not available 12/28/2021 73953 UNK NILDA Gupta, [facility] 2 13:55:00 43029 Product containin g angiotens in-conver ting enzyme inhibitor (product) medicatio n cough mild low 12/30/2022 98611 009 SNOMED Candace cunningham MD [address] [address], [facility] [place], [address], [facility] 3 08:37:29 Medications Name Sig Start Date [...] by transder mal route for 14 days. 12/29 completed Not Available Not Available Not [...] Not Available lidocaine 5 % topical patch APPLY 1 PATCH DAILY NEEDED (12 HOURS ON THEN 12 HOURS OFF) 2024 active Not Available Not Available Not Avai lable nicotine 21 mg/24 hr daily transderm al [...] Available Not Available Nasonex 50 mcg/actua tion Eleele Eleele 2 sprays every day by intranas al route. 11/06 completed Not Available Not Available Not Available levofloxa hemal 500 mg tablet DAILY 02/26 completed RECORDED 03/01/19 12 3:58PM BY JOSHUA WHIPPLEATI ON AUTO-PIPE CTIVATIO N; Not Available Not [...] Not Available Not Available Not Avai lable bromfenac 0.09 % eye drops INSTILL 1 [...] in a dose pack TAKE DIRECTED PER PATRICIA Beckman 05/27 completed Not Available Not Available Not [...] Updated DateTime 3 154.31 cm 32.4 kg/m2 63067.7 g 84 /min 96 % 96 % 98.2 [degF] 144 mm[Hg] 79 mm[Hg] Nikki Beavers MA [facility] 3 13:03:54 Date Recorded Body height Body mass index (BMI) Body weight Heart rate Oxygen saturation Oxygen saturation in Arterial blood by Pulse oximetry Body temperature Systolic blood pressure Diastolic blood pressure Provider Name and Address Organization Details Last Updated DateTime 3 154.31 cm 32.6 kg/m2 64892.4 g 108 /min 96 % 96 % 97.7 [degF] 133 mm[Hg] 80 mm[Hg] Elihsa Khanna LPN [facility] 3 14:58:39 Date Recorded Heart rate Systolic blood pressure Diastolic blood pressure Provider Name and Address Organization Details Last Updated DateTime 02/28/2023 94 /min 120 mm[Hg] 66 mm[Hg] Elisha Khanna LPN [facility] 03/02/2023 11:24:18 Date Recorded Heart rate Heart rate Systolic blood pressure Diastolic blood pressure Systolic blood pressure Diastolic blood pressure Provider Name and Address Organization Details Last Updated DateTime 4 87 /min 84 /min 133 mm[Hg] 86 mm[Hg] 118 mm[Hg] 77 mm[Hg] Elisha Khanna LPN [facility] 4 11:24:51 Date Recorded Heart rate Systolic blood pressure Diastolic blood pressure Provider Name and Address Organization Details Last Updated DateTime 03/02/2023 90 /min 126 mm[Hg] 74 mm[Hg] Elisha Khanna [facility] 03/02/2023 11:25:07 Date Recorded Body height Body mass index (BMI) Body weight Heart rate Oxygen saturation Oxygen saturation in Arterial blood by Pulse oximetry Body temperature Systolic blood pressure Diastolic blood pressure Provider Name and Address Organization Details Last Updated DateTime 4 154.31 cm 32.4 kg/m2 19121.7 g 99 /min 97 % 97 % 97.7 [degF] 157 mm[Hg] 82 mm[Hg] Nikki Beavers MA [facility] 4 10:42:33 Date Recorded Body height Body mass index (BMI) Body weight Heart rate Oxygen saturation Oxygen saturation in Arterial blood by Pulse oximetry Body temperature Systolic blood pressure Diastolic blood pressure Provider Name and Address Organization Details Last Updated DateTime 4 154.31 cm 32.6 kg/m2 35837.3 g 87 /min 97 % 97 % 98.1 [degF] 161 mm[Hg] 92 mm[Hg] Nikki Beavers MA [facility] 4 12:56:22 Date Recorded Body height Body mass index (BMI) Body weight Heart rate Oxygen saturation Oxygen saturation in Arterial blood by Pulse oximetry Body temperature Systolic blood pressure Diastolic blood pressure Provider Name and Address Organization Details Last Updated DateTime 4 154.31 cm 13.1 kg/m2 65882.8 7 g 104 /min 96 % 96 % 97.4 [degF] 165 mm[Hg] 79 mm[Hg] Nikki Beavers MA [facility] 4 12:59:07 Social History Question Answer Notes LastModified by Organizat ion Details LastModified Time Tobacco Smoking Status Current Every Day Smoker has used Ch[employer] Not Available [employer] 12/18/2019 03:36:34 Do You Have An Advance Directive? Yes [email or web address] Information not available 12/28/2021 What Is Your Level Of Alcohol Consumption? Occasional [id number] Information not available 12/18/2019 Is Blood Transfusion Acceptable In An Emergency? Yes [id number] Information not available 12/18/2019 What Is Your Level Of Caffeine Consumption? Moderate 2-3 Cups [place] Daily Information not available 12/28/2021 How Much Tobacco Do You Chew? None [id number] Information not available 12/18/2019 Are You Currently Employed? No Retired [id number] Information not available 12/18/2019 What Type Of Diet Are You Following? REGULAR [id number] Information not available 12/18/2019 Which Illicit Or Recreational Drugs Have You Used? None [id number] Information not available 12/18/2019 Do You Or Have You Ever Used E-cigarettes Or Vape? 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 With Others (in 1999) [email or web address] Information not available 12/28/2021 Do You Take Precautions To Prevent Distracted Driving? Yes [email or web address] Information not available 09/26/2014 How Often Do You Need To Have Someone Help You When You Read Instructions, Pamphlets, Or Other Written Material From Your Doctor Or Pharmacy? Never [email or web address] Information not available 09/26/2014 Have You Served In The ? No [email or web address] Information not available 03/26/2016 Have You Or Anyone In Your Household Had Any Of The Following Symptoms In The Last 14 Days: Sore Throat, Cough, Chills, Body Aches For Unknown Reasons, Shortness Of Breath For Unknown Reasons, Loss Of Smell, Loss Of Taste, Fever At Or Greater Than 100 Degrees Fahrenheit? No Information not available 11/21/2019 Are You Or Anyone In Your Household A Health Care Provider Or Emergency Responder? No [email or web address] Information not available 11/21/2019 To The Best Of Your Knowledge Have You Been In Close Proximity To Any Individual Who Tested Positive For COVID-19? No [email or web address] Information not available 11/21/2019 What Was The Date Of Your Most Recent Tobacco Screening? 01/03/2024 [email or web address] Information not available 01/03/2024 How Many Children Do You Have? 2 Son And Daughter (Vanessa) [id number] Information not available 12/18/2019 Seat Belts Used Routinely Yes [email or web address] Information not available 12/28/2021 Are You Sexually Active? No [id number] Information not available 12/18/2019 Smoke Alarm In Home Yes [email or web address] Information not available 12/28/2021 At What Age Did You Start Smoking Tobacco? 18 [id number] Information not available 12/18/2019 Are You Passively Exposed To Smoke? Yes [email or web address] Information not available 09/26/2014 Do You Or Have You Ever Used Smokeless Tobacco? Never Used Smokeless Tobacco [email or web address] Information not available 12/20/2019 How Much Tobacco Do You Smoke? 1 PPD [email or web address] Information not available 08/13/2022 Do You Use Sunscreen Routinely? No [id number] Information not available 12/18/2019 How Many Years Have You Smoked Tobacco? 58 [id number] Information not available 12/18/2019 Sex: Unknown Functional Status Question Answer Note LastModified by Organization D etails LastModified Time Are you able to walk? [email or web address] Information not available 12/28/2021 Are you able to care for yourself? Yes [id number] Information not available 12/18/2019 What is your exercise level? Moderate golf [id number] Information not available 12/18/2019 Mental Status None recorded. Family History Relationship Description Onset Age of this Age Resolved Age Notes LastModified by Organization Details LastModified Time Father Malignant tumor of lung 89 [email or web address] Not available 10:30:02 Maternal Uncle Malignant neoplastic disease Not available 12/28 13:37:29 Sister Hyperlipidem ia [email or web address] Not available 12/28 13:37:29 Sister Hypertensive disorder [...] split virus, trivalent, preservative 5 completed Loretta ilndo [facility] 07/25/2019 14:36:02 Pneumococcal conjugate PCV 13 5 completed Not Available [facility] 03/03/[facility] 02:21:36 COVID-19, mRNA, LNP-S, PF, 30 mcg/0.3 mL dose 1 completed NILDA Gupta [facility] 03/18/2021 15:04:35 COVID-19, mRNA, LNP-S, PF, 30 mcg/0.3 mL dose 1 completed NILDA Gupta [facility] 03/18/2021 15:04:35 Novel [id number], preservative-free 0 completed NILDA Gupta [facility] 03/18/2021 15:04:35 Influenza, split virus, trivalent, preservative 6 completed NILDA Gupta [facility] 03/18/2021 15:04:35 Influenza, split virus, trivalent, preservative 9 completed Flower Sheri, [place] [facility] 15:04:35 Influenza, split virus, trivalent, preservative 8 completed [facility] 03/18/2021 15:04:35 Influenza, split virus, trivalent, preservative 7 completed [facility] 03/18/2021 15:04:35 COVID-19, mRNA, LNP-S, PF, 30 mcg/0.3 mL dose 1 completed [facility] 03/18/2021 15:04:35 Influenza, split virus, trivalent, preservative 5 completed [facility] 06/01/2021 13:28:07 Influenza, high-dose, quadrivalent, PF 2 completed [facility] 12/28/2021 13:49:24 COVID-19, mRNA, LNP-S, bivalent, PF, 30 mcg/0.3 mL dose 2 completed [facility] 12/28/2021 13:49:24 COVID-19, mRNA, LNP-S, PF, bar-sucrose, 30 mcg/0.3 mL 3 completed Elisha Khanna LPN null, [facility] 02/09/2023 14:59:02 Influenza, high-dose, trivalent, PF 6 completed Not Available [facility] 03/03/2019 02:22:03 Influenza, high-dose, trivalent, PF 7 completed Not Available [facility] 03/03/2019 02:22:21 pneumococcal polysaccharide PPV23 8 completed [facility] 03/18/2021 15:04:35 Td (adult), 2 Lf tetanus toxoid, preservative free, adsorbed 6 completed Antionette Garcia MA null, [facility] 06/01/2021 13:28:07 Influenza, split virus, trivalent, preservative 2 completed Loretta lindo, [facility] 07/25/2019 14:36:02 Tdap 3 completed Loretta Ward null, [facility] 07/25/2019 14:36:02 Influenza, split virus, trivalent, preservative 3 completed Loretta Mccoyilla null, [facility] 07/25/2019 14:36:02 Influenza, high-dose, trivalent, PF 8 completed Not Available [facility] 03/03/2019 02:22:14 Influenza, high-dose, trivalent, PF 9 completed Not Available [facility] 03/03/2019 02:22:09 Influenza, high-dose, quadrivalent, PF 0 completed Candace Owens MD [address], [address], [facility] 11/21/2019 14:49:12 Influenza, high-dose, quadrivalent, PF 1 completed Aisha Miles MA null, [facility] 11/26/2020 14:59:14 Td (adult), 2 Lf tetanus toxoid, preservative free, adsorbed 2 completed Candace Owens MD [address] [address], [place], [address], [facility] 12/29/2021 09:10:21 Influenza, high-dose, quadrivalent, PF 3 completed Candace Owens MD [address], [address], [facility] 12/30/2022 08:35:20 Past Encounters Encounter ID Performer Location Encounter Start Date Encounter Closed Date Diagnosis/Indication Diagnosis SNOMED-CT Code Diagnosis ICD10 Code Diagnosis Note [id number] Candace Owens MD Main Office [address] [facility] [address] [place] [address] 09/05/2013 10:02:42 09/05/2013 11:45:20 Adult health examination 319978830 Essential hypertension 85420621 Pure hypercholesterolemia 165802751 level running high since she stopped her meds; she will restart and we will recheck level in 3-6 months Major depr essive disorder 807260325 we will refer her for counseling [id number] autoEComm erce [address] [facility] [place] [address] 03/16/2010 00:00:00 [id number] autoEComm erce [address] [facility] [place] [address] 06/22/2010 00:00:00 [id number] autoEComm erce [address] [facility] [place] [address] 07/30/2010 00:00:00 [id number] autoEComm erce [address] [facility] [place] [address] 10/30/2010 00:00:00 [id number] autoEComm erce [address] [facility] [place] [address] 12/01/2010 00:00:00 [id number] autoEComm erce [address] [facility] [place] [address] 02/16/2011 00:00:00 [id number] autoEComm erce [address] [facility] [place] [address] 02/18/2011 00:00:00 [id number] autoEComm erce [address] [facility] [place] [address] 03/04/2011 00:00:00 [id number] autoEComm erce [address] [facility] [place] [address] 06/08/2011 00:00:00 [id number] autoEComm erce [address] [facility] [place] [address] 06/18/2011 00:00:00 [id number] autoEComm erce [address] [facility] [place], [place] [address] 08/10/2011 00:00:00 [id number] autoEComm erce [address] [facility] [place], [place] [address] 10/07/2011 00:00:00 [id number] autoEComm erce [address] [facility] [place], [place] [address] 01/11/2012 00:00:00 [id number] autoEComm erce [address] [facility] [place], [place] [address] 02/17/2012 00:00:00 [id number] autoEComm erce [address] [facility] [place], [place] [address] 09/04/2012 00:00:00 [id number] [address]Comm [address] [place] [address],[address] [place] [address] 03/08/2013 00:00:00 [id number] Mariah Hunt Main Office [address] [address] [place] [address] 03/27/2014 15:12:43 03/27/2014 16:11:40 Essential hypertension 95611368 Pure hypercholesterolemia 764356171 unable to tolerate statins. We will try tricor and she will recheck her lipids in 3 months. Allergic rhinitis 06022008 she will take an OTC antihistam ine and use Flonase on a regular basis (at least for two weeks) to see if that helps with her symptoms. Cough 31512256 possibly from her ACEI but she does not want to stop. The cough is more likely coming from smoking and PND. [id number] Candace Owens MD Main Office [address] [facility] [address] [facility] [place] [address] 09/04/2014 14:16:23 09/04/2014 14:59:05 Cough 63800032 Sx x 3 weeks, Instructed to STOP augmentin, and take full course of zpak, she should take full course of all antibiotic s in order to prevent recurrence and /or resistant bacteria. Symptomati c treatment- lots of fluids, rest, tea with honey, OTC cough drops/ cough med as needed, humidifier as needed [id number] Main Office [address] [address] [place] [address] 09/26/2014 10:39:22 09/26/2014 12:08:37 Adult health examination 821243372 Administra tion of pneumococcal vaccine 53896638 Tobacco de pendence syndrome 20763184 Diarrhea 98611339 Pure hypercholesterolemia 471168471 unable to tolerate statins. We will try tricor and she will recheck her lipids in 3 months. Contusion of toenail 74551444 [id number] Candace Owens MD Main Office [address] [address] [place] [address] 04/03/2015 15:00:17 04/03/2015 16:15:54 Essential hypertension 68730317 I10 good control with current mgmt. Major depr essive disorder 680068703 F33.9 currently in remission Pure hypercholesterolemia 337516253 E78.0 She will go back on the [employer] and we will check her labs again at he next visit. Gastroesop hageal reflux disease 440534951 K21.9 Allergic conjunctivitis 539340014 H10.13 Insomnia 234886584 G47.0 0 Neck pain 66052888 M54.2 [id number] Candace Owens MD Main Office [address] [address] [place] [address] 05/27/2015 10:42:10 05/27/2015 11:33:52 Dysuria 91204619 R30.0 we will treat this as a UTI but if her symptoms persist we will get a CT scan to r/o stones or diverticul tis both of which are less likely since her pain is bilateral. It is also possible that this is muscular since she has recently increased her activity level. Increased frequency of urination 792065029 R35.0 [id number] [place] [facility] Main Office [address] [address] [place] [address] 06/06/2015 10:24:23 06/06/2015 11:46:44 Anterior knee pain 643195922 M25.569 [id number] Candace Owens MD Main Office [address] [address] [place] [address] 10/21/2015 10:45:09 10/21/2015 12:24:45 Essential hypertension 39912330 I10 good control with current mgmt. Anterior knee pain 46016 3006 M25.562 [facility] and [facility] injections which help. Also got help from a 6-week course of PT and tramadol. Osteoarthritis 067837112 M19.[address] Hartley; her main problem is left hip pain and LBP. Adult [facility] th examination 388667500 Z00.00 She is UTD with her immunizati ons; has back, neck and left hip pain which are intermitte nt and helped with tramadol. At [facility] risk for falls 170610054 Z91.81 Advance di rective discussed with patient 886112971 Z71.89 Hearing loss 56141113 H9 1.93 Neck pain 94123087 M54.2 Low back pain 712894562 M54.5 Migraine 63503609 G43.90 9 [id number] Candace Owens MD Main Office [address] [address] [place] [address] 03/26/2016 13:27:48 03/26/2016 15:24:33 Neck pain 89685572 M54.2 She is followed by Dr Hartley and will also be making an appointmen t with Dr Mariano at [facility]. Allergic rhinitis 540734 04 J30.9 Flonase and a decongesta nt were not helpful. She gets a little help from singulair. Will try a different nasal spray and she will make an appointmen t with an hogshead liner if she is not improving. Much of her lack of response is because she is a smoker. Low back pain 061894746 M54.5 Chest pain 13115679 R07. 9 She is a smoker and has high cholestero l and HTN. High risk for heart disease. [id number] Candace Owens MD Main Office [address] [facility] [address] [place] [address] 10/26/2016 13:27:57 10/26/2016 15:01:59 Adult health examination 776753045 Z00.00 She is UTD with her immunizati ons; has back, neck and left hip pain which are intermitte nt and helped with tramadol. Due for a colonoscop y in 2019 Influenza vaccine needed 0245640704 106 Z23 Screening for malignant neoplasm of lung 923819526 Z12.2 Pure hypercholesterolemia 941226165 E78.00 unable to tolerate statins. Cramp in l ower leg associated with rest 003397581 G47.62 Advised hydration and stretching before bed. Neck pain 70952670 M54.[address] She is followed by Dr Hartley and has also been seen by Dr Mariano at [facility]. [id number] Candace Owens MD Main Office [address] [facility] [address] [facility] [place] [address] 01/19/2017 13:54:55 01/19/2017 15:19:19 Cramp in lower limb 371616483 R25.2 This is probably idiopathic but she is concerned that something serious may be wrong because of the persistenc e and the lack of a sustained response to various treatments . I encouraged quitting smoking and doing regular stretching exercises. Spinal stenosis is an unlikely etiology since she golfs regularly and has no problems with walking. Claudication 787234142 I 73.9 Possibly secondary to her smoking. Low back pain 371083817 M54.5 [id number] Candace Owens MD Main Office [address] [facility] [address] [place] [address] 05/02/2017 14:54:30 05/02/2017 16:19:43 Essential hypertension 79566509 I10 Running a little high. No changes at this time. Migraine 63781756 G43.90 9 Acute sinusitis 79269917 J01.90 Hyperlipidemia 11367935 E78.5 Cramp in lower limb 4499 33130 R25.2 Helped with vitamin B12. [id number] Candace Owens MD Main Office [address] [facility] [address] [place] [address] 06/02/2017 14:36:30 06/02/2017 15:35:10 Pain in lower limb 99791897 M79.661 Unclear etiology for her right leg pain. Seen by vascular and had normal studies. Gets pain when golfing. Neck pain 69564537 M54.2 Degenerati ve changes in cervical spine. Seen last year and had injections which helped but pain has returned. Anterior t ibial stress syndrome 018266515 S86.891A right sided. [id number] Candace Owens MD Main Office [address] [facility] [address] [place] [address] 11/01/2017 09:54:08 11/01/2017 11:22:02 Adult health examination 213226093 Z00.00 She is UTD with her immunizati ons (except due for a flu); has back, neck and left hip pain which are intermitte nt and helped with tramadol. Due for a colonoscop y in 2019 Influenza vaccine needed 0959920825 106 Z23 Neck pain 77285946 M54.2 Degenerati ve changes in cervical spine. has had injections and PT in the past. Essential hypertension 21213758 I10 Running a little high. No changes at this time. Insomnia 492865492 G47.0 0 Cough 46406709 R05 possibly from her ACEI but she does not want to stop. The cough is more likely coming from smoking and PND. [id number] Candace Owens MD Main Office [address] [address] [place] [address] 05/02/2018 10:00:50 05/02/2018 11:15:29 Essential hypertension 39704127 I10 A little high but acceptable . No changes. Neck pain 01089968 M54.2 Degenerati ve changes in cervical spine. has had injections and PT in the past. Cough 48288189 R05 Probably from smoking and PND. May also have COPD given her smoking hx. Insomnia 877391267 G47.0 0 Acute sinusitis 53439910 J01.90 Pain in le ft lower limb 501783222 M79.605 Left groin pain secondary to labral tear. Seen by Dr Montalvo at [facility]. [id number] Candace Owens MD Main Office [address] [facility] [address] [facility] [place] [address] 07/19/2018 09:45:19 07/19/2018 11:25:01 Neck pain 31249087 M54.2 Degenerati ve changes in cervical spine. has had injections and PT in the past. Not a surgical problem. Screening for malignant neoplasm of colon 105642770 Z12.11 Inguinal pain 964557630 R10.2 This has been chronic over the last 8 years. Seen by physiatry and [facility]. [facility] recommends an U/S to r/o a hernia as well as an injection and will see her back if the pain persists. 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 I offered a sleep medicine referral but she declined. Essential hypertension 36537932 I10 High today but she does not want to make changes. She will follow her BP and call if it remains above 140 systolic. [id number] Candace Owens MD Main Office [address] [facility] 207 [place] [address] 09/20/2018 12:34:15 09/20/2018 13:43:07 Insomnia 556004051 G47.00 She is looking for halcion for sleep but I told her that it was no longer appropriat e to be taking this [place] [facility] because of potential SE's. She will try a low-dose ambien instead. Pain in le ft lower limb 257530990 M79.[address] Montalvo at [facility] with whom I also spoke. He feels that the problem is in her lumbar spine. He will also do vascular studies since the symptoms come on with exercise and resolve with rest and she is a lifetime smoker. Essential hypertension 23268162 I10 High today but she does not want to make changes. She will follow her BP and call if it remains above 140 systolic. Gastroesop hageal reflux disease 872065910 K21.9 [id number] Candace Owens MD Main Office [address] [facility] 207 [place] [address] 11/06/2018 10:06:05 11/06/2018 11:21:19 Adult health examination 310910964 Z00.00 She is UTD with her immunizati ons (except due for a flu); has back, neck and left hip pain which are intermitte nt and helped with tramadol. Due for a colonoscop y in 2019 Cough 56328665 R05 Probably from smoking and PND. May also have COPD given her smoking hx. Anxiety 92241988 F41.9 Neck pain 09313155 M54.2 Degenerati ve changes in cervical spine. has had injections and PT in the past. Not a surgical problem. 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 Tight chest 45404814 R07 .89 This occurs at rest but not with activity. Had a normal ETT a couple of years ago. Will repeat if her symptoms persist or they start occuring with activity. [id number] Candace Owens MD Main Office [address] [address] 12/25/2018 08:57:09 12/25/2018 10:08:40 Major depressive disorder 319042103 F32.0 She is taking celexa prn and states that it works well for her this way. This may be a placebo effect. I explained to her that it's not a prn med and that to work well she should be taking it daily. It is unlikely that she will do this. Allergic conjunctivitis 751693388 H10.13 Gastroesop hageal reflux disease 963640185 K21.9 Only uses this med prn and not very often. [id number] Candace Owens MD Main Office [address] [address] 07/25/2019 13:23:44 07/25/2019 15:57:28 Essential hypertension 37114913 I10 High today but she does not want to make changes. She will follow her BP and call if it remains above 140 systolic. Allergic conjunctivitis 082903134 H10.13 Hyperlipidemia 64473465 E78.5 Major depr essive disorder 793528480 F32.0 She is taking celexa prn and states that it works well for her this way. This may be a placebo effect. I explained to her that it's not a prn med and that to work well she should be taking it daily. It is unlikely that she will do this. Nasal congestion 1044700 0 R09.81 Chronic cough 81966470 R 05 This is probably from smoking. We will no longer be prescribin g codeine cough syrup. [id number] Candace Owens MD Main Office [address] [facility] 207 [facility] [place] [address] 11/21/2019 13:34:34 11/21/2019 14:58:50 Adult health examination 530832534 Z00.00 She is UTD with her immunizati ons (except due for a flu); has back, neck and left hip pain which are intermitte nt and helped with tramadol and an occasional tylenol w/codeine. Had a colonoscop y September 2018. Influenza vaccine needed 6810736022 106 Z23 Insomnia 278443424 G47.0 0 Hyperlipidemia 34599855 E78.5 Cough 60851392 R05 Probably from smoking and PND. May also have COPD given her smoking hx. Allergic rhinitis 062720 04 J30.9 Flonase and a decongesta nt were not helpful. She gets a little help from singulair. Will try a different nasal spray and she will make an appointmen t with an hogshead liner if she is not improving. Much of her lack of response is because she is a smoker. Essential hypertension 38019655 I10 Has been running high. We will increase her lisinopril from 10 to 20 mg and recheck in 1 month. Tobacco de pendence syndrome 89129230 F17.200 Neck pain 82261430 M54.2 Degenerati ve changes in cervical spine. has had injections and PT in the past. Not a surgical problem. Benign varun plasm of adrenal gland 81869788 D35.[address] Givens [id number] Candace Owens MD Main Office [address] [facility] [address] [place] [address] 12/20/2019 13:19:52 12/20/2019 14:07:46 Essential hypertension 73230637 I10 We increased her lisinopril from to 10 to 20 mg with an improvemen t in her BP. Insomnia 851159489 G47.0 0 We will look into the reason she is having trouble filling her zolpidem script. [id number] Candace Owens MD Main Office [address] [facility] 207 [place] [address] 06/19/2020 09:53:17 06/19/2020 11:02:24 Essential hypertension 11391863 I10 We increased her lisinopril from to 10 to 20 mg with an improvemen t in her BP. Allergic rhinitis 840776 04 J30.9 On meds. This is a bad year for her. Continue current meds. Neck pain 58370727 M54.2 Degenerati ve changes in cervical spine. has had injections and PT in the past. Not a surgical problem. Cough 57480014 R05 Probably from smoking and PND. May also have COPD given her smoking hx. Insomnia 170039010 G47.0 0 Stable on low-dose zolpidem [id number] Netta Guerra MD Main Office [address] [place] [address] 07/07/2020 10:39:36 07/07/2020 11:21:25 Pre-surgery evaluation 270620397 Z01.818 1. Pre-Surgic al Evaluation /Surgical Clearance [...] procedure risk. Bilateral cataracts 9572 2003 H26.9 [id number] Candace Owens MD Main Office [address] [place] [address] 11/26/2020 12:39:17 11/26/2020 14:04:44 Adult health examination 509173739 Z00.00 She is UTD with her immunizati ons (except due for a flu); has back, neck and left hip pain which are intermitte nt and helped with tramadol and an occasional tylenol w/codeine. Had a colonoscop y September 2018 due again in 2023. Influenza vaccine needed 0757535234 106 Z23 Skin lesion 13754382 L98 .9 Scaly lesion at left wrist. Essential hypertension 25445379 I10 Good control. Continue current mgmt. Gastroesop hageal reflux disease 968670497 K21.9 Only uses this med prn and not very often. Hyperlipidemia 00191261 E78.5 Stable on current meds. Insomnia 937911543 G47.0 0 Stable on low-dose zolpidem but her insurance will only cover a 90-day supply for the year. We put in a PA but this was denied. Major depr essive disorder 298411071 F32.0 She is taking celexa prn and states that it works well for her this way. This may be a placebo effect. I explained to her that it's not a prn med and that to work well she should be taking it daily. It is unlikely that she will do this. Benign varun plasm of adrenal gland 08524018 D35.[address] Givens who referred her back here. She is due for a f/u CT in 2022. 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 Discussed treatment with neurontin as well as SE's. [id number] Candace Owens MD Main Office [address] [facility] [address] [place] [address] 06/01/2021 12:47:38 06/02/2021 10:34:39 Essential hypertension 59976229 I10 BP mildly elevated but she did not take her meds today. She will monitor and call if it continues to run high. Allergic conjunctivitis 567960072 H10.13 Hyperlipidemia 35465485 E78.5 Stable on current meds. Major depr essive disorder 114122286 F32.0 She is taking celexa prn and states that it works well for her this way. This may be a placebo effect. I explained to her that it's not a prn med and that to work well she should be taking it daily. It is unlikely that she will do this. Anterior knee pain 82000 3006 M25.562 followed by [facility] and receives injections which help. [id number] Candace Owens MD Main Office [address] [facility] 207 [place] [address] 12/28/2021 13:36:45 12/28/2021 15:08:36 Adult health examination 316986367 Z00.00 She is UTD COVID, flu and pneumonia vaccines. She is due for a tetanus vaccine which she will receive today. Had a colonoscop y September 2018 due again in 2023. Acquired t review engineer finger 8572612 M65.30 Involving both index fingers. Requires a tetanus booster 829074066 Z23 Essential hypertension 51205471 I10 Good control; continue current mgmt. Hyperlipidemia 11691215 E78.5 Stable on current meds. Check fasting lipid level. Allergic rhinitis 576089 04 J30.9 On meds. This is a bad year for her. 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 Allergic conjunctivitis 266551630 H10.13 - pt has been complainin g of watery eyes, provided with azelastine dry drop Allergic rhinitis 161710 04 J30.9 - advised patient to switch from zyrtec to claritin as it may provide better relief- if no improvemen t pt was that she can switch back [id number] JIMBO VAUGHN MD Main Office [address] [facility] [address] [facility], [place] [address] 08/13/2022 10:36:49 08/13/2022 11:07:07 Lightheadedness 684075487 R42 - improved, chronic problem- EKG showed on 05/27/2022: sinus bradycardi a with PVCs, no QTC prolongati on> no PVCs noted on last EKG done in 06/2020- Holter monitor was normal- as holter monitor was normal and patient is no longer experienci ng symptoms, no further cardiology work-up needed. if symptoms re-occur will recommend vestibular therapy. Temporoman dibular joint disorder 27296777 M26.609 - still a problem for the patient, worse on the right side- pt advised to follow-up with her dentist Tobacco de pendence syndrome 73560363 F17.200 - pt today expresses that she would like to quit smoking- in the past tried chantex with little improvemen t- pt has a 64 pack year smoking history (1ppd for the last 64 years)- to help patient quit started pain on on patches: 21mg for 6 weeks, 14mg for 2 weeks and 7mg for 2 weeks Hyperlipidemia 09349971 E78.5 Z00.00 - ordered per request of patient [id number] Candace Owens MD Main Office [address] [address] [place] [address] 12/29/2022 12:31:51 12/29/2022 14:03:00 Adult health examination 440374681 Z00.00 She is UTD COVID, flu and pneumonia vaccines. She is due for a tetanus vaccine which she will receive today. Had a colonoscop y September 2018 due again in 2023. Gastroesop hageal reflux disease 260531728 K21.9 Only uses this med prn and not very often. Influenza vaccine needed 4050501436 106 Z23 Essential hypertension 54100216 I10 We will stop her ACEI because of a dry cough. Hyperlipidemia 76627298 E78.5 Stable on current meds. Check fasting lipid level. Spinal yifan nosis of lumbar region 75650178 M48.061 Benign varun plasm of adrenal gland 53283020 D35.[address] Givens who referred her back here. She is due for a f/u CT. Major depr essive disorder 600150960 F32.0 She is taking celexa prn and states that it works well for her this way. This may be a placebo effect. I explained to her that it's not a prn med and that to work well she should be taking it daily. It is unlikely that she will do this. [id number] Candace Owens MD Main Office [address] [address] [place] [address] 02/09/2023 14:21:06 02/09/2023 15:46:22 Essential hypertension 75035390 I10 Her cough resolved after stopping the ACEI and she is tolerating the SARB well with a BP under control. Spinal yifan nosis of lumbar region 05023174 M48.061 Gets relief from tylenol w/codeine. Low back pain 752723154 M54.51 Starting PT in a couple of weeks. Seeing Dr Montalvo again next month. [id number] STEFANIE NORIEGA Main Office [address] [facility] [address] [place] [address] 03/17/2023 10:33:22 03/17/2023 11:10:01 Chronic diarrhea 209831961 K52.9 was seen at [facility] on 03/04/23 for symptoms of fecal incontinen [...] 2019 Spinal yifan nosis of lumbar region 20118824 M48.061 MRI completed at [facility] which revealed lumbar spine degenerati on, foraminal narrowing greatest at L3-L4, L4-L5 levels, severe spinal canal narrowing, crowding upon exiting L3 nerve roots, and L3-L4 moderate diffuse disc bulge-Was told by neurosurge ry team to consider surgical interventi on for chronic lumbar stenosis due to symptoms of neurogenic claudicati on; pt is set to f/u with neurology outpatient for further discussion [id number] Candace Owens MD Main Office [address] [facility] [address] [facility] [place] [address] 07/06/2023 12:50:34 07/06/2023 13:30:26 Essential hypertension 29328772 I10 Her cough resolved after stopping the ACEI and she is tolerating the SARB well with a BP under control at home but is high when she is here in the office. She does not want to make any changes. Hyperlipidemia 11386275 E78.5 Stable on current meds. Gastroesop hageal reflux disease 274626900 K21.9 Only uses this med prn and not very often. Insomnia 267036885 G47.0 0 Stable on low-dose zolpidem but her insurance will only cover a 90-day supply for the year. We put in a PA but this was denied. Spinal yifan nosis of lumbar region 39208028 M48.061 Gets relief from tylenol w/codeine. She has had a recent exacerbati on and is going to have a procedure at [facility] by Dr Srivastava which sounds like a guided injection [id number] Candace Owens MD Main Office [address] [place] [address] 01/03/2024 12:50:26 01/03/2024 14:10:24 Adult health examination 016458427 Z00.00 She is UTD COVID, flu, tetanus and pneumonia vaccines.H ad a colonoscop y earlier this year and does not need any additional colonoscop ies.Had a mammogram last month. Tobacco de pendence syndrome 22343800 F17.200 We discussed quitting. Low back pain 776707426 M54.[address] Montalvo again next month. Insomnia 024080039 G47.0 0 Stable on low-dose zolpidem but her insurance will only cover a 90-day supply for the year. We put in a PA but this was denied. Hyperlipidemia 01162937 E78.5 Stable on current meds. Spinal yifan nosis of lumbar region 02339961 M48.061 Recently (December 2023) had an epidural by Dr Montalvo on right side which has helped especially with radiation pain. Exposure to lead 3261704 401 3058355 Z77.011 Cough 00722840 R05.9 . The cough is more likely coming from smoking and PND. Health Concerns Section Related Observation LastModified by Organization Detai ls LastModified Time None Recorded Concern Status LastModified by Organization Details LastModified Time None Recorded Advance Directives Directive Y: Payers Encounter Date Sequence Insurance Name Policy Number Policy Gabriel Covered Member ID Gabriel Member ID Guarantor Name 12/29/2022 1 [place] Danae Hever Soja [id number] Danae F Soja 12/29/2022 2 [place] 111 Danae F Soja [id number] Danae F Soja 02/09/2023 1 [place] [place] Danae F Soja [id number] Danae F Soja 02/09/2023 2 [place] 111 Danae F Soja [id number] Danae F Soja 03/17/2023 1 [place] Danae F Soja [id number] Danae F Soja 03/17/2023 2 [place] 111 Danae F Soja [id number] Danae Narayanan 07/06/2023 1 [place] [facility] Danae Narayanan [id number] Danae Narayanan 07/06/2023 2 [facility] 111 Danae Narayanan [id number] Danae Narayanan 01/03/2024 1 [place] [facility] [place] Danae Narayanan [id number] Danae Narayanan 01/03/2024 2 [facility] 111 Danae Narayanan [id number] Danae Narayanan Notes Date Note Type Note [...] is an improvement. Candace Owens MD [address], [address], [facility] 12/30/2022 08:49:32 3 text/html Hypertension F/UReported bypatient.Associated [...] and is followed by Dr Montalvo at [facility]. He has recommended PT which she will be starting next week. Candace Owens MD [address], [address], [facility] 02/10/2023 09:55:58 4 text/html Nikki is an 83yr old F who presents for chronic diarrhea x5 weeks. Was seen at [facility] on 03/04/23 for bowel incontinence. MRI was [...] STEFANIE NORIEGA [address] [facility] [address], [place], [address], [facility] [place] 03/20/2023 17:43:52 4 text/html HyperlipidemiaReported bypatient.Notes:Stable on [...] and is followed by Dr Montalvo at [facility]. She recently had an exacerbation of her pain with radiation into her right leg. She was recently seen by Dr Montalvo at [facility] and is scheduled to see Dr Srivastava to have a procedure done. Candace Owens MD [address] [facility] [address], [place], [address], [facility] 07/07/2023 19:32:06 4 text/html Medicare Annual Wellness [...] is an improvement. Candace Owens MD [address] [address], [place], [address], [facility] 01/04/2024 16:38:07 OBGyn Episode No OBEpisode recorded.
== END 2024-06-08 13:50 | disposition home or self-care (01) ==
LOC: HO.HNS 11:27
PROVIDERS: PCP Internal Medicine; Visit Provider Physician Assistant
DX: M48.061 Spinal stenosis, lumbar region without neurogenic claudication (principal); M50.90 Cervical disc disorder, unspecified, unspecified cervical region
CPT/HCPCS: 99024

== ENCOUNTER → 2024-06-08 11:27 | Outpatient (BNVA) | payer MEDICARE, BC, SELFPAY | PROVIDERS: PCP Internal Medicine; Visit Provider Physician Assistant | DX: M48.061 Spinal stenosis, lumbar region without neurogenic claudication (principal); M50.90 Cervical disc disorder, unspecified, unspecified cervical region | CPT/HCPCS: 99212 ==